=== PATIENT | male | born 1975 | race Two or more races ===

== ENCOUNTER 2020-09-14 15:25 | Outpatient (REF) | payer MEDICAID, SELFPAY ==
--- NOTE | 2020-09-14 15:37 | XR_ITS ---
EXAMINATION: XR HIP, RIGHT CLINICAL INFORMATION: Right hip pain. COMPARISON: None TECHNIQUE: Two views of the right hip. FINDINGS: There is loss of right hip joint space with lateral femoral head and acetabular spurring.. No bony erosive changes seen. No visible acute fracture or dislocation. The soft tissues are unremarkable. XR/XR hip RT min 2V IMPRESSION: Mild spurring along the right lateral femoral head and lateral acetabular spurring. An MRI may be helpful for further evaluation to exclude any labral impingement or tear.
== END 2020-09-14 15:26 | disposition home or self-care (01) ==
LOC: HO.XRAY 15:25
DX: M25.551 Pain in right hip (principal)
CPT/HCPCS: 73502

== ENCOUNTER 2020-10-23 17:32 | Outpatient (REF) | payer MEDICAID, SELFPAY | END 2020-10-23 17:33 | disposition home or self-care (01) | LOC: HO.LAB 17:32 | PROVIDERS: PCP Nurse Practitioner Primary Care; Visit Provider Internal Medicine | DX: Z20.828 Contact with and (suspected) exposure to other viral communicable diseases (principal) | CPT/HCPCS: C9803; U0003 ==

== ENCOUNTER → 2020-11-19 13:28 | Outpatient (BNVA) | payer MEDICAID, SELFPAY | PROVIDERS: PCP Nurse Practitioner Primary Care; Visit Provider Orthopaedic Surgery | DX: M25.552 Pain in left hip (principal); M54.16 Radiculopathy, lumbar region; M16.12 Unilateral primary osteoarthritis, left hip | CPT/HCPCS: 99202 ==

== ENCOUNTER 2020-12-06 15:34 | Emergency (ER) | payer MEDICAID, SELFPAY ==
--- NOTE | 2020-12-06 15:50 | ED.ABDPAIN ---
HPI - Abdominal Pain General Chief Complaint: General Medical <Francisco Rushing NP - Last Filed: 12/06/20 17:53> Stated Complaint: abd pain <Francisco Rushing NP - Last Filed: 12/06/20 17:53> Time Seen by Provider: 12/06/20 15:50 <Francisco Rushing NP - Last Filed: 12/06/20 17:53> Source: patient <Francisco Rushing NP - Last Filed: 12/06/20 17:53> Limitations: no limitations <Francisco Rushing NP - Last Filed: 12/06/20 17:53> History of Present Illness HPI narrative: States history of lower back pain secondary to osteoarthritis is referred to Orthopedics/physical therapy by his GP however today having right-sided flank pain going to right groin which is slightly different and down the leg. There is no fever or chills. No injury. No dysuria. Positive nausea secondary to the pain. <Francisco Rushing NP - Last Filed: 12/06/20 17:53> MD elicited complaint: abdominal pain and flank pain <Francisco Rushing NP - Last Filed: 12/06/20 17:53> Onset (ago): day(s) <Francisco Rushing NP - Last Filed: 12/06/20 17:53> Location: R flank <Francisco Rushing NP - Last Filed: 12/06/20 17:53> Severity: moderate <Francisco Rushing NP - Last Filed: 12/06/20 17:53> Quality: aching <Francisco Rushing NP - Last Filed: 12/06/20 17:53> Associated symptoms: denies other symptoms <Francisco Rushing NP - Last Filed: 12/06/20 17:53> Related Data Home Medications: Home Medications Medication Instructions Recorded Confirmed naproxen 500 mg tablet 500 mg PO BID 11/19/20 oxycodone 5 mg capsule 5 mg PO BID PRN 11/19/20 Previous Rx's Medication Instructions Recorded cyclobenzaprine 10 mg PO TID PRN #20 tab 12/06/20 lidocaine 1 patch TOPICAL Q24H PRN #10 ea 12/06/20 <Francisco Rushing NP - Last Filed: 12/06/20 17:53> Allergies/Adverse Reactions: Allergies Allergy/AdvReac Type Severity Reaction Status Date / Time No Known Allergies Allergy Verified 11/19/20 13:36 [No Known Allergies*] <Francisco Rushing NP - Last Filed: 12/06/20 17:53> Review of Systems Review of Systems Constitutional: No Weight loss, No Fever, No Chills, No Night Sweats, No Fatigue, No Malaise ENT/Mouth: No Hearing loss, No Ear Pain, No Nasal Congestion, No Sinus Pain, No Hoarseness, No sore throat, No Rhinorrhea, No Swallowing Difficulty Eyes: No Eye Pain, No Swelling, No Redness, No Foreign Body, No Discharge, No Vision Changes Cardiovascular: No Chest Pain, No SOB, No Dyspnea on Exertion, No Orthopnea, No Edema, No Palpitations Respiratory: No Cough, No Sputum, No Wheezing, No Smoke Exposure, No Dyspnea Gastrointestinal: No Vomiting, No Diarrhea, No Constipation, No Hematochezia, No Melena Genitourinary: no irregular bleeding, No Dysuria, No Urinary Frequency, No Hematuria, No Urinary Incontinence, No Urgency, No Flank Pain, No Urinary Flow Changes, No Hesitancy Musculoskeletal: No joint pain, No Myalgias, No Joint Swelling, , positive right-sided lower back pain radiating down the legs Skin: No Skin Lesions, No rash Neuro: No Weakness, No Numbness, No Paresthesias, No Loss of Consciousness, No Dizziness, No Headache Psych: No Social Issues Heme/Lymph: No Bruising, No Bleeding,No Lymphadenopathy Endocrine: No Polyuria, No Polydipsia, No Temperature Intolerance <Francisco Rushing NP - Last Filed: 12/06/20 17:53> Yes all other systems are reviewed and are negative <Francisco Rushing NP - Last Filed: 12/06/20 17:53> Physical Exam Vital Signs: Vital Signs: Last Vital Signs Temp 98.0 F 12/06/20 15:51 Pulse 103 H 12/06/20 15:51 Resp 20 12/06/20 17:01 BP 138/92 H 12/06/20 17:01 Pulse Ox 95 12/06/20 15:51 Body Mass Index 31.8 Reviewed <Francisco Rushing NP - Last Filed: 12/06/20 17:53> Vital Signs: Last Vital Signs Temp 98.0 F 12/06/20 15:51 Pulse 103 H 12/06/20 15:51 Resp 20 12/06/20 17:01 BP 138/92 H 12/06/20 17:01 Pulse Ox 95 12/06/20 15:51 Body Mass Index 31.8 <Monty Cintron MD - Last Filed: 12/12/20 10:50> Const: Other: Appears uncomfortable grimacing and states is sharp stabbing pain on the right side of the flank and radiating to the right abdomen <Franciscosamantha Rushing NP - Last Filed: 12/06/20 17:53> General: cooperative and healthy appearing; No intoxicated appearing <[facility] JEAN PAUL Rushing - Last Filed: 12/06/20 17:53> Nutritional Appearance: average body habitus <[facility] JEAN PAUL Rushing - Last Filed: 12/06/20 17:53> Orientation/consciousness: patient oriented x3 <[facility] JEAN PAUL Rushing - Last Filed: 12/06/20 17:53> HENMT: Head: Yes normal to inspection <[facility] JEAN PAUL Rushing - Last Filed: 12/06/20 17:53> Ears: hearing grossly normal bilaterally <[facility] JEAN PAUL Rushing - Last Filed: 12/06/20 17:53> Eyes: General: appearance normal, both eyes and all related structures <Franciscosamantha Rushing NP - Last Filed: 12/06/20 17:53> Visual Summers: normal visual summers by confrontation <[facility] JEAN PAUL Rushing - Last Filed: 12/06/20 17:53> Neck: Neck: Yes normal visual inspection, No positive Brudzinski's sign, No positive Kernig's sign and No tender <[facility] JEAN PAUL Rushing - Last Filed: 12/06/20 17:53> Thyroid: Thyroid normal <[facility] JEAN PAUL Rushing - Last Filed: 12/06/20 17:53> Chest: Chest palpation & inspection: normal inspection of the chest <[facility] JEAN PAUL Rushing - Last Filed: 12/06/20 17:53> Resp: Effort & Inspection: normal respiratory effort <[facility] JEAN PAUL Rushing - Last Filed: 12/06/20 17:53> Auscultation: clear to auscultation bilaterally <Francisco RushingJEAN PAUL - Last Filed: 12/06/20 17:53> Cardio: Jugular venous distension: no JVD <Francisco Rushing JEAN PAUL - Last Filed: 12/06/20 17:53> Rate: regular rate <Francisco RushingJEAN PAUL - Last Filed: 12/06/20 17:53> Rhythm: regular rhythm <Francisco RushingJEAN PAUL - Last Filed: 12/06/20 17:53> Heart sounds: S1 normal heart sound present and S2 normal heart sound present <Francisco RushingJEAN PAUL - Last Filed: 12/06/20 17:53> GI: Inspection: Yes normal to inspection <Francisco RushingJEAN PAUL - Last Filed: 12/06/20 17:53> Palpation (GI): Soft to palpation <Francisco RushingJEAN PAUL - Last Filed: 12/06/20 17:53> Percussion: Yes normal to percussion <Francisco RushingJEAN PAUL - Last Filed: 12/06/20 17:53> Auscultation: normal bowel sounds <Francisco RushingJEAN PAUL - Last Filed: 12/06/20 17:53> : General: Yes no CVA tenderness <Francisco RushingJEAN PAUL - Last Filed: 12/06/20 17:53> Back/Spine/Pelvis: Back: no CVA tenderness <Francisco RushingJEAN PAUL - Last Filed: 12/06/20 17:53> Skin: General skin exam: no rashes or lesions noted <Francisco RushingJEAN PAUL - Last Filed: 12/06/20 17:53> Neuro: General: patient oriented x3 <Francisco RushingJEAN PAUL - Last Filed: 12/06/20 17:53> Extrem: Other: Negative Homans bilaterally. Pulses within normal limits. Reflexes within normal limits. positive leg lift at 65 degrees on the right side. <Francisco RushingJEAN PAUL - Last Filed: 12/06/20 17:53> General: Yes normal to inspection <Francisco RushingJEAN PAUL - Last Filed: 12/06/20 17:53> Course Course Course Narrative: I have reviewed the chart <Monty Cintron MD - Last Filed: 12/12/20 10:50> MDM - Abdominal Pain Lab Data Result diagrams: : 12/06/20 16:07 12/06/20 16:07 <Francisco RushingJEAN PAUL - Last Filed: 12/06/20 17:53> Labs: Lab Results 12/06/20 12/06/20 12/06/20 Range/Units 16:07 16:07 16:07 WBC 16.6 H (4.8-10.8) X10*3/uL RBC 4.96 (4.60-5.80) X10*6/uL Hgb 14.4 (14.0-18.0) g/dl Hct 43.0 (42-52) % MCV 86.7 (80-98) fL MCH 29.0 (27.0-33.0) pg MCHC 33.5 (31.0-36.0) g/dl RDW 14.5 (11.0-16.0) % Plt Count 408 H (160-400) X10*3/uL MPV 9.8 (9.4-12.4) fL Immature Gran % (Auto) 1.0 H (0.0-0.4) % Neut % (Auto) 69.2 (45-73) % Lymph % (Auto) 22.0 (20-40) % [place] % (Auto) 6.7 (2-11) % Eos % (Auto) 0.8 (0-4) % Baso % (Auto) 0.3 (0-2) % Lymph # (Auto) 3.7 (1.2-4.9) X10*3/uL [place] # (Auto) 1.1 (0.1-1.2) X10*3/uL Eos # (Auto) 0.1 (0.0-0.4) X10*3/uL Baso # (Auto) 0.1 (0.0-0.2) X10*3/uL Abs Immat Gran (auto) 0.17 H (0.00-0.03) X10*3/uL Absolute Neuts (auto) 11.5 H (2.0-8.3) X10*3/uL Absolute Nucleated RBC 0.000 (0.0-0.012) X10*3/uL Nucleated RBC % (auto) 0.0 (0.0-0.2) /100WBC Hold Blue Top SEE NOTE Sodium 138 (135-145) mmol/L Potassium 4.3 (3.3-5.1) mmol/l Chloride 105 (96-108) mmol/L Carbon Dioxide 23 (22-29) mmol/L Anion Gap 14 (12-20) BUN 18 H (9-16) mg/dL Creatinine 0.86 (0.5-1.4) mg/dL Estim Creat Clear Calc 139.7 Estimated GFR > 60 Random Glucose 103 (60-115) mg/dL Calcium 9.5 (8.4-10.2) mg/dL Total Bilirubin 0.3 (0.0-1.0) mg/dL AST 17 (5-37) U/L ALT 41 H (0-40) U/L Alkaline Phosphatase 58 (39-117) U/L Total Protein 7.4 (6.5-8.0) g/dL Albumin 4.5 (3.5-5.0) g/dL Urine Color Urine Appearance Urine pH (5.0-8.0) Ur Specific [place] (1.005-1.025) Urine Protein (NEG-TRACE) MG/DL Urine Glucose (UA) (NEG) MG/DL Urine Ketones (NEG) MG/DL Urine Blood (NEG) Urine Nitrite (NEG) Ur Leukocyte Esterase (NEG) Urine RBC (0) /HPF Urine WBC (0-4) /HPF Ur Squamous Epith Cells /LPF Urine Bacteria /LPF 12/06/20 Range/Units 16:07 WBC (4.8-10.8) X10*3/uL RBC (4.60-5.80) X10*6/uL Hgb (14.0-18.0) g/dl Hct (42-52) % MCV (80-98) fL MCH (27.0-33.0) pg MCHC (31.0-36.0) g/dl RDW (11.0-16.0) % Plt Count (160-400) X10*3/uL MPV (9.4-12.4) fL Immature Gran % (Auto) (0.0-0.4) % Neut % (Auto) (45-73) % Lymph % (Auto) (20-40) % [place] % (Auto) (2-11) % Eos % (Auto) (0-4) % Baso % (Auto) (0-2) % Lymph # (Auto) (1.2-4.9) X10*3/uL [place] # (Auto) (0.1-1.2) X10*3/uL Eos # (Auto) (0.0-0.4) X10*3/uL Baso # (Auto) (0.0-0.2) X10*3/uL Abs Immat Gran (auto) (0.00-0.03) X10*3/uL Absolute Neuts (auto) (2.0-8.3) X10*3/uL Absolute Nucleated RBC (0.0-0.012) X10*3/uL Nucleated RBC % (auto) (0.0-0.2) /100WBC Hold Blue Top Sodium (135-145) mmol/L Potassium (3.3-5.1) mmol/l Chloride (96-108) mmol/L Carbon Dioxide (22-29) mmol/L Anion Gap (12-20) BUN (9-16) mg/dL Creatinine (0.5-1.4) mg/dL Estim Creat Clear Calc Estimated GFR Random Glucose (60-115) mg/dL Calcium (8.4-10.2) mg/dL Total Bilirubin (0.0-1.0) mg/dL AST (5-37) U/L ALT (0-40) U/L Alkaline Phosphatase (39-117) U/L Total Protein (6.5-8.0) g/dL Albumin (3.5-5.0) g/dL Urine Color YELLOW Urine Appearance CLEAR Urine pH 5.5 (5.0-8.0) Ur Specific [place] >= 1.030 H (1.005-1.025) Urine Protein NEG (NEG-TRACE) MG/DL Urine Glucose (UA) NEG (NEG) MG/DL Urine Ketones NEG (NEG) MG/DL Urine Blood TRACE (NEG) Urine Nitrite NEG (NEG) Ur Leukocyte Esterase NEG (NEG) Urine RBC 0-2 (0) /HPF Urine WBC 0 (0-4) /HPF Ur Squamous Epith Cells TRACE /LPF Urine Bacteria NONE /LPF <Francisco Rushing NP - Last Filed: 12/06/20 17:53> Lab Results 12/06/20 12/06/2021 Range/Units 16:07 16:07 16:07 WBC 16.6 H (4.8-10.8) X10*3/uL RBC 4.96 (4.60-5.80) X10*6/uL Hgb 14.4 (14.0-18.0) g/dl Hct 43.0 (42-52) % MCV 86.7 (80-98) fL MCH 29.0 (27.0-33.0) pg MCHC 33.5 (31.0-36.0) g/dl RDW 14.5 (11.0-16.0) % Plt Count 408 H (160-400) X10*3/uL MPV 9.8 (9.4-12.4) fL Immature Gran % (Auto) 1.0 H (0.0-0.4) % Neut % (Auto) 69.2 (45-73) % Lymph % (Auto) 22.0 (20-40) % [place] % (Auto) 6.7 (2-11) % Eos % (Auto) 0.8 (0-4) % Baso % (Auto) 0.3 (0-2) % Lymph # (Auto) 3.7 (1.2-4.9) X10*3/uL [place] # (Auto) 1.1 (0.1-1.2) X10*3/uL Eos # (Auto) 0.1 (0.0-0.4) X10*3/uL Baso # (Auto) 0.1 (0.0-0.2) X10*3/uL Abs Immat Gran (auto) 0.17 H (0.00-0.03) X10*3/uL Absolute Neuts (auto) 11.5 H (2.0-8.3) X10*3/uL Absolute Nucleated RBC 0.000 (0.0-0.012) X10*3/uL Nucleated RBC % (auto) 0.0 (0.0-0.2) /100WBC Hold Blue Top SEE NOTE Sodium 138 (135-145) mmol/L Potassium 4.3 (3.3-5.1) mmol/l Chloride 105 (96-108) mmol/L Carbon Dioxide 23 (22-29) mmol/L Anion Gap 14 (12-20) BUN 18 H (9-16) mg/dL Creatinine 0.86 (0.5-1.4) mg/dL Estim Creat Clear Calc 139.7 Estimated GFR > 60 Random Glucose 103 (60-115) mg/dL Calcium 9.5 (8.4-10.2) mg/dL Total Bilirubin 0.3 (0.0-1.0) mg/dL AST 17 (5-37) U/L ALT 41 H (0-40) U/L Alkaline Phosphatase 58 (39-117) U/L Total Protein 7.4 (6.5-8.0) g/dL Albumin 4.5 (3.5-5.0) g/dL Urine Color Urine Appearance Urine pH (5.0-8.0) Ur Specific [place] (1.005-1.025) Urine Protein (NEG-TRACE) MG/DL Urine Glucose (UA) (NEG) MG/DL Urine Ketones (NEG) MG/DL Urine Blood (NEG) Urine Nitrite (NEG) Ur Leukocyte Esterase (NEG) Urine RBC (0) /HPF Urine WBC (0-4) /HPF Ur Squamous Epith Cells /LPF Urine Bacteria /LPF 12/06/20 Range/Units 16:07 WBC (4.8-10.8) X10*3/uL RBC (4.60-5.80) X10*6/uL Hgb (14.0-18.0) g/dl Hct (42-52) % MCV (80-98) fL MCH (27.0-33.0) pg MCHC (31.0-36.0) g/dl RDW (11.0-16.0) % Plt Count (160-400) X10*3/uL MPV (9.4-12.4) fL Immature Gran % (Auto) (0.0-0.4) % Neut % (Auto) (45-73) % Lymph % (Auto) (20-40) % [place] % (Auto) (2-11) % Eos % (Auto) (0-4) % Baso % (Auto) (0-2) % Lymph # (Auto) (1.2-4.9) X10*3/uL [place] # (Auto) (0.1-1.2) X10*3/uL Eos # (Auto) (0.0-0.4) X10*3/uL Baso # (Auto) (0.0-0.2) X10*3/uL Abs Immat Gran (auto) (0.00-0.03) X10*3/uL Absolute Neuts (auto) (2.0-8.3) X10*3/uL Absolute Nucleated RBC (0.0-0.012) X10*3/uL Nucleated RBC % (auto) (0.0-0.2) /100WBC Hold Blue Top Sodium (135-145) mmol/L Potassium (3.3-5.1) mmol/l Chloride (96-108) mmol/L Carbon Dioxide (22-29) mmol/L Anion Gap (12-20) BUN (9-16) mg/dL Creatinine (0.5-1.4) mg/dL Estim Creat Clear Calc Estimated GFR Random Glucose (60-115) mg/dL Calcium (8.4-10.2) mg/dL Total Bilirubin (0.0-1.0) mg/dL AST (5-37) U/L ALT (0-40) U/L Alkaline Phosphatase (39-117) U/L Total Protein (6.5-8.0) g/dL Albumin (3.5-5.0) g/dL Urine Color YELLOW Urine Appearance CLEAR Urine pH 5.5 (5.0-8.0) Ur Specific [place] >= 1.030 H (1.005-1.025) Urine Protein NEG (NEG-TRACE) MG/DL Urine Glucose (UA) NEG (NEG) MG/DL Urine Ketones NEG (NEG) MG/DL Urine Blood TRACE (NEG) Urine Nitrite NEG (NEG) Ur Leukocyte Esterase NEG (NEG) Urine RBC 0-2 (0) /HPF Urine WBC 0 (0-4) /HPF Ur Squamous Epith Cells TRACE /LPF Urine Bacteria NONE /LPF <Monty Cintron MD - Last Filed: 12/12/20 10:50> Imaging Data Abdominal/pelvis CT: Radiologist's impression: [address] [id number] Scan ReportSigned Patient: Jamshid Tejada AMR#: [id number]: [id number]:[id number]/Sex: 45 / MADM Date: 12/06/20Loc: [email or web address] Dr: Ordering Physician: Francisco Rushing NP Date of Service: 12/06/20 Procedure(s): CT abdomen pelvis wo con Accession Number(s): [id number] cc: Francisco Rushing [employer] CANDLES~ EXAMINATION: CT ABDOMEN AND PELVIS WITHOUT CONTRAST CLINICAL INFORMATION: Right-sided abdomen and right-sided flank pain. COMPARISON: CT abdomen and pelvis noncontrast 07/26/2013 TECHNIQUE: Multidetector volumetric imaging was performed from the superior aspect of the liver through the pubic symphysis. Sagittal and coronal reformatted images were obtained on the technologist's workstation. This CT examination was performed using dose optimization techniques as appropriate, variously including the following: *Automated exposure control *Adjustment of mA and/or kV according to patient size (this includes techniques or standardized protocols for targeted exams where dose is matched to indication/reason for exam; i.e. extremities or head) *Use of iterative reconstruction technique DLP: 798 mGy-cm FINDINGS: LUNG BASES: The visualized lung bases are unremarkable. LIVER, GALLBLADDER, AND BILIARY TREE: The liver is normal in size, shape, and attenuation. No focal hepatic lesion or biliary ductal dilatation is present. The gallbladder is unremarkable with no evidence of radiopaque gallstones, gallbladder wall thickening, or obvious pericholecystic inflammatory changes. PANCREAS: Unremarkable. SPLEEN: Unremarkable. ADRENAL GLANDS: Left adrenal normal. There is a small nodule central right adrenal measuring only 1.2 cm and 11HU attenuation likely adenoma. Prior measurement approximately 0.9 cm. KIDNEYS AND URETERS: The kidneys are normal in size, shape, and attenuation. No hydronephrosis, hydroureter, or calculi seen. No perinephric stranding. BLADDER: Unremarkable. GASTROINTESTINAL TRACT: No bowel obstruction or inflammatory changes in the bowel or mesentery. No pneumatosis or free air. The appendix is normal. There is no ascites or fluid collection. ABDOMINAL WALL: Borderline fat-containing umbilical hernia under 2 cm. Borderline bilateral fat-containing inguinal hernias. LYMPH NODES: No lymphadenopathy. VASCULAR: Incidental retroaortic left renal vein. PELVIC VISCERA: Unremarkable. OSSEOUS STRUCTURES: No acute bony abnormality. Mild degenerative changes lower thoracic and lumbar spine. CT/CT abdomen pelvis wo con IMPRESSION: 1. No inflammatory changes in abdomen or pelvis. Normal appendix. 2. No visible gallstones or biliary ductal dilatation. 3. No hydronephrosis or perinephric stranding. 4. Small right adrenal nodule likely adenoma only 12 mm. Dictated By:MONTY LAUREN MDSigned By:<Electronically signed by MONTY LAUREN MD in [place]>12/06/20 1627 DD/ 1551TD/TT: [employer] Maker: EVE <Francisco Rushing NP - Last Filed: 12/06/20 17:53> Discharge Plan Discharge Clinical Impression: Lumbar spine strain, Sciatica <Francisco Rushing NP - Last Filed: 12/06/20 17:53> Patient Disposition: Home, Self-Care <Francisco Rushing NP - Last Filed: 12/06/20 17:53> Instructions: Sciatica (ED), Lower Back Exercises (ED) <Francisco Rushing NP - Last Filed: 12/06/20 17:53> Additional Instructions: The CT scan of the abdomen pelvis did not show any evidence of kidney stones, no evidence of acute appendicitis. The pain is likely from your musculoskeletal system and involvement of your sciatic nerve. Continue with her prednisone as prescribed by her primary care doctor I will add on a muscle relaxant (Flexeril) please do not drink alcohol or drive while taking his medications Gentle stretching Take medication prescribed Follow-up with her outpatient providers as discussed Return if any concerns or worsening symptoms Thank you <Francisco Rushing NP - Last Filed: 12/06/20 17:53> Prescriptions: New cyclobenzaprine 10 mg tablet 10 mg PO TID PRN (Reason: muscle spasm) Qty: 20 RF: 0 lidocaine 4 % adhesive patch,medicated 1 patch topical Q24H PRN (Reason: pain) Qty: 10 RF: 0 <Francisco Rushing NP - Last Filed: 12/06/20 17:53> Referrals: Anna Marie Cameron NP [Primary Care Provider] - 1 week <Francisco Rushing NP - Last Filed: 12/06/20 17:53> Interventions: ED Discharge Assessment Last Done: 12/06/20 18:30 <Francisco Rushing, [employer] - Last Filed: 12/06/20 17:53> Discharge Date/Time: 12/06/20 18:31 <Francisco Rushing NP - Last Filed: 12/06/20 17:53> [facility] Past Medical History Medical History: Medical History (Updated 12/07/20 @ 00:00 by Emil Musa) Left hip pain Primary osteoarthritis of right hip Right lumbar radiculopathy <Francisco Rushing NP - Last Filed: 12/06/20 17:53> Surgical History: Surgical History (Updated 11/19/20 @ 13:39 by DAKOTA Avina) History of repair of right rotator cuff <Francisco Rushing NP - Last Filed: 12/06/20 17:53> Family History Family History: Family History (Updated 11/19/20 @ 13:39 by DAKOTA Avina) Mother No problems noted. 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
[2020-12-06 15:51] VITALS: BP 128/92; PULSE 103; RESP 20; TEMP 36.7; O2SAT 95; BMI 31.8
[2020-12-06] MEDS: 0.9 % Sodium Chloride 1,000 ML 999 ML IV (16:10)
[2020-12-06 16:12] LABS: MANUAL DIFF FLAG NO
[2020-12-06] MEDS: ondansetron HCL 4 MG/2 ML VIAL IVPUSH (16:12)
[2020-12-06] MEDS: Ketorolac Tromethamine 30 MG/ML VIAL IVPUSH (16:12)
[2020-12-06 16:16] LABS: Basophils Absolute Auto 0.1 X10*3/uL (0.0-0.2); Basophils Percent Auto 0.3 % (0-2); Eosinophils Absolute Auto 0.1 X10*3/uL (0.0-0.4); Eosinophils Percent Auto 0.8 % (0-4); Hemoglobin 14.4 g/dl (14.0-18.0); Imm Gran Abs Auto 0.17 X10*3/uL (0.00-0.03); Lymphocytes Absolute Auto 3.7 X10*3/uL (1.2-4.9); Mean Corpuscular HGB Conc 33.5 g/dl (31.0-36.0); Mean Corpuscular Volume 86.7 fL (80-98); Mean Platelet Volume 9.8 fL (9.4-12.4); Monocytes Absolute Auto 1.1 X10*3/uL (0.1-1.2); Monocytes Percent Auto 6.7 % (2-11); Neutrophils Absolute Auto 11.5 X10*3/uL (2.0-8.3); Neutrophils Percent Auto 69.2 % (45-73); Platelet Count 408 X10*3/uL (160-400); Red Blood Count 4.96 X10*6/uL (4.60-5.80); Red Cell Distribution Width 14.5 % (11.0-16.0); White Blood Count 16.6 X10*3/uL (4.8-10.8)
[2020-12-06 16:19] LABS: Glucose Urine UA NEG (NEG); Leukocyte Esterase Urine NEG (NEG); Nitrite Urine NEG (NEG); PH 5.5 (5.0-8.0); Specific Gravity - Urine >= 1.030 (1.005-1.025); Urine Blood TRACE (NEG); Urine Ketones NEG (NEG); Urine Protein NEG (NEG-TRACE)
[2020-12-06 16:20] LABS: Appearance Urine CLEAR; Color Urine YELLOW
[2020-12-06 16:37] LABS: Alanine Aminotransferase 41 U/L (0-40); Albumin Level 4.5 g/dL (3.5-5.0); Alkaline Phosphatase 58 U/L (39-117); Anion Gap 14 (12-20); Aspartate Amino Transferase 17 U/L (5-37); Bilirubin Total 0.3 mg/dL (0.0-1.0); Blood Urea Nitrogen 18 mg/dL (9-16); Calcium 9.5 mg/dL (8.4-10.2); Carbon Dioxide 23 mmol/L (22-29); Chloride 105 mmol/L (96-108); Creatinine Clr Calc Pharmacy 139.7; Estimated Glomerular Filt Rate > 60; Glucose Random 103 mg/dL (60-115); Potassium 4.3 mmol/l (3.3-5.1); Sodium 138 mmol/L (135-145); Total Protein 7.4 g/dL (6.5-8.0)
[2020-12-06 16:58] LABS: RBC Urine 0-2 /HPF (0); WBC Urine 0 /HPF (0-4)
[2020-12-06 16:59] LABS: Squamous Epithelial Cell Urine TRACE /LPF
[2020-12-06 17:01] VITALS: BP 138/92; RESP 20
[2020-12-06] MEDS: Morphine Sulfate 4 MG/ML CARTRIDGE IVPUSH (17:01)
== END 2020-12-06 18:31 | disposition home or self-care (01) ==
PROVIDERS: Nurse Practitioner Primary Care; Emergency Provider Emergency Medicine; PCP Nurse Practitioner Primary Care
DX: S39.012A Strain of muscle, fascia and tendon of lower back, initial encounter (principal); M54.41 Lumbago with sciatica, right side; R11.0 Nausea; M79.605 Pain in left leg; M79.604 Pain in right leg; F17.210 Nicotine dependence, cigarettes, uncomplicated; X58.XXXA Exposure to other specified factors, initial encounter; Y93.9 Activity, unspecified; Y92.9 Unspecified place or not applicable; Y99.9 Unspecified external cause status; Z71.6 Tobacco abuse counseling; Z79.899 Other long term (current) drug therapy
CPT/HCPCS: 36415; 74176; 80053; 81001; 85025; 96361; 96374; 96375; 99283; 99284; J1885; J2270; J2405

== ENCOUNTER → 2020-12-13 16:19 | Outpatient (BNVA) | payer MEDICAID, SELFPAY | PROVIDERS: PCP Nurse Practitioner Primary Care; Visit Provider Anesthesiology ==

== ENCOUNTER 2020-12-25 07:01 | Outpatient (REF) | payer MEDICAID, SELFPAY ==
--- NOTE | ~2020-12-25 | FL_ITS ---
EXAMINATION: XR FLUOROSCOPY WITH IMAGES CLINICAL INFORMATION: Degenerative disc disease lumbar region. COMPARISON: None. TECHNIQUE: Fluoroscopy performed by Maria Elena Márquez NP. Fluoroscopy time: 0.5 minutes DAP: 2.8 Gycm2 Images: 2 FINDINGS: Images demonstrate needle placement adjacent to the lateral right L3 and L4 vertebral bodies and contrast injection. FL/FL guidance in treatment room IMPRESSION: Fluoroscopy guidance for spinal injection.
== END 2020-12-25 07:02 | disposition home or self-care (01) ==
LOC: HO.RADIR 07:01
PROVIDERS: Visit Provider Anesthesiology
DX: M51.36 Other intervertebral disc degeneration, lumbar region (principal); M54.16 Radiculopathy, lumbar region; F17.210 Nicotine dependence, cigarettes, uncomplicated
CPT/HCPCS: 64483; 64484; J3300; Q9967

== ENCOUNTER → 2021-01-01 11:21 | Outpatient (BNVA) | payer MEDICAID, SELFPAY | PROVIDERS: PCP Nurse Practitioner Primary Care; Visit Provider Physician Assistant ==

== ENCOUNTER 2021-01-02 08:57 | Outpatient (REF) | payer MEDICAID, SELFPAY ==
--- NOTE | ~2021-01-02 | MR_ITS ---
EXAMINATION: MR LUMBAR SPINE WITHOUT CONTRAST CLINICAL INFORMATION: Low back pain and sciatica. COMPARISON: Lumbar spine MRI 06/19/2020. TECHNIQUE: MRI of the lumbar spine was obtained using routine sequences without contrast. FINDINGS: There is slight grade 1 retrolisthesis of L4 on L5. Alignment is otherwise normal. Vertebral heights are preserved. No acute bone marrow signal changes. There is disc desiccation at multiple levels without substantial loss of intervertebral disc height. Overall there appears to be congenital canal narrowing. The tip of the conus medullaris is located at L1-L2. No mass effect on the conus. Visualized distal cord signal intensity is normal. At L1-L2 there is a slightly bulging disc. Mild canal stenosis. No mass effect on the traversing or foraminal nerve roots. At L2-L3 there is a slightly bulging disc. Mild canal stenosis. No mass effect on the traversing or foraminal nerve roots. At L3-L4 there is an asymmetrically bulging disc to the left. Bilateral facet degenerative change. Mild canal stenosis. Mild mass effect on the extraforaminal segment of the left L3 nerve root. At L4-L5 there is a broad central extrusion with 0.9 similar caudal subligamentous extension of extruded disc material causing severe canal stenosis. No foraminal nerve root compression. At L5-S1 there is a slightly bulging disc. No canal stenosis. No mass effect on the traversing or foraminal nerve roots. Limited visualization the retroperitoneal anatomy reveals no abnormal finding. Psoas and paraspinal muscle groups are symmetric. MR/MR lumbar spine wo con IMPRESSION: There is multilevel degenerative spondylosis of the lumbar spine which is superimposed upon underlying congenital canal narrowing. There is grade 1 retrolisthesis of L4 on L5. At this level there is also a broad central extrusion causing severe canal stenosis. Mild canal stenosis at L1-L2, L2-L3, and L3-L4. An asymmetrically bulging disc at L3-L4 causes mild mass effect on the extraforaminal segment of left L3 nerve root.
== END 2021-01-02 08:58 | disposition home or self-care (01) ==
LOC: HO.MRI 08:57
PROVIDERS: Visit Provider Nurse Practitioner Primary Care
DX: M54.16 Radiculopathy, lumbar region (principal); M54.41 Lumbago with sciatica, right side; M54.42 Lumbago with sciatica, left side
CPT/HCPCS: 72148

== ENCOUNTER → 2021-01-24 09:45 | Outpatient (BNVA) | payer MEDICAID, SELFPAY | PROVIDERS: PCP Nurse Practitioner Primary Care; Visit Provider Anesthesiology ==

== ENCOUNTER 2021-02-26 06:24 | Outpatient (REF) | payer MEDICAID, SELFPAY ==
--- NOTE | ~2021-02-26 | FL_ITS ---
EXAMINATION: XR FLUOROSCOPY WITH IMAGES CLINICAL INFORMATION: Degenerative disc disease lumbar region COMPARISON: Previous exam December 2020 TECHNIQUE: Fluoroscopy performed by Maria Elena Márquez NP. Fluoroscopy time: 1 minutes DAP: 6.7 Gycm2 Images: 8 FINDINGS: Images demonstrate needle placement and contrast injection adjacent to the bilateral lateral L2-L5 vertebral bodies. FL/FL guidance in treatment room IMPRESSION: Fluoroscopic guidance for spinal injection.
== END 2021-02-26 06:25 | disposition home or self-care (01) ==
LOC: HO.RADIR 06:24
PROVIDERS: Visit Provider Anesthesiology
DX: M51.36 Other intervertebral disc degeneration, lumbar region (principal); M54.16 Radiculopathy, lumbar region
CPT/HCPCS: 64493; 64494; 64495; Q9967

== ENCOUNTER 2021-02-26 09:21 | Outpatient (REF) | payer MEDICAID, SELFPAY ==
[2021-02-26 10:05] LABS: MANUAL DIFF FLAG NO
[2021-02-26 10:10] LABS: Basophils Absolute Auto 0.1 X10*3/uL (0.0-0.2); Basophils Percent Auto 0.5 % (0-2); Eosinophils Absolute Auto 0.1 X10*3/uL (0.0-0.4); Eosinophils Percent Auto 0.7 % (0-4); Hemoglobin 13.2 g/dl (14.0-18.0); Imm Gran Abs Auto 0.07 X10*3/uL (0.00-0.03); Imm Gran Pct Auto 0.6 % (0.0-0.4); Lymphocytes Absolute Auto 2.5 X10*3/uL (1.2-4.9); Lymphocytes Percent Auto 19.6 % (20-40); Mean Corpuscular HGB Conc 31.4 g/dl (31.0-36.0); Mean Platelet Volume 10.1 fL (9.4-12.4); Monocytes Absolute Auto 0.8 X10*3/uL (0.1-1.2); Monocytes Percent Auto 6.3 % (2-11); Neutrophils Absolute Auto 9.1 X10*3/uL (2.0-8.3); Neutrophils Percent Auto 72.3 % (45-73); Platelet Count 388 X10*3/uL (160-400); Red Blood Count 4.72 X10*6/uL (4.60-5.80); Red Cell Distribution Width 15.1 % (11.0-16.0); White Blood Count 12.6 X10*3/uL (4.8-10.8)
== END 2021-02-26 09:22 | disposition home or self-care (01) ==
LOC: HO.LAB 09:21
PROVIDERS: PCP Nurse Practitioner Primary Care; Visit Provider Physician Assistant
DX: R74.01 Elevation of levels of liver transaminase levels (principal)
CPT/HCPCS: 36415; 85025

== ENCOUNTER → 2021-03-06 12:22 | Outpatient (BNVA) | payer MEDICAID, SELFPAY | PROVIDERS: PCP Nurse Practitioner Primary Care; Visit Provider Anesthesiology ==

== ENCOUNTER → 2021-03-21 09:56 | Outpatient (BNVA) | payer MEDICAID, SELFPAY | PROVIDERS: PCP Nurse Practitioner Primary Care; Visit Provider Physician Assistant ==

== ENCOUNTER 2021-04-23 07:31 | Outpatient (REF) | payer MEDICAID, SELFPAY | END 2021-04-23 07:32 | disposition home or self-care (01) | LOC: HO.RADIR 07:31 | PROVIDERS: Visit Provider Anesthesiology | DX: Z13.89 Encounter for screening for other disorder (principal) ==

== ENCOUNTER 2021-07-16 06:21 | Outpatient (REF) | payer MEDICAID, SELFPAY ==
--- NOTE | ~2021-07-16 | FL_ITS ---
EXAMINATION: XR FLUOROSCOPY WITH IMAGES CLINICAL INFORMATION: Spondylosis without myelopathy or radiculopathy. COMPARISON: February 26, 2021 and December 25, 2020 TECHNIQUE: Fluoroscopy performed by Dr. Rodger Padilla. Fluoroscopy time: 1.6% minutes DAP: 22.4 Gycm2 Images: 4 FINDINGS: Images demonstrate placement of needles L3-S1 bilaterally. FL/FL guidance in treatment room IMPRESSION: Needle positioning for pain management.
== END 2021-07-16 06:22 | disposition home or self-care (01) ==
LOC: HO.RADIR 06:21
PROVIDERS: Visit Provider Anesthesiology
DX: M51.36 Other intervertebral disc degeneration, lumbar region (principal); M54.16 Radiculopathy, lumbar region; M47.816 Spondylosis without myelopathy or radiculopathy, lumbar region
CPT/HCPCS: 64635; 64636; J3300

== ENCOUNTER 2021-08-08 17:00 | Outpatient (RCR) | payer MEDICAID, SELFPAY | END 2021-08-23 11:50 | disposition home or self-care (01) | LOC: HO.PT 17:00 | PROVIDERS: PCP Nurse Practitioner Primary Care; Visit Provider Physician Assistant | DX: Z96.642 Presence of left artificial hip joint (principal) | CPT/HCPCS: 97110; 97150; 97161; 97530 ==

== ENCOUNTER → 2021-08-19 11:00 | Outpatient (BNVA) | payer MEDICAID, SELFPAY | PROVIDERS: PCP Nurse Practitioner Primary Care; Visit Provider Anesthesiology | DX: M51.36 Other intervertebral disc degeneration, lumbar region (principal); M54.16 Radiculopathy, lumbar region; M47.816 Spondylosis without myelopathy or radiculopathy, lumbar region | CPT/HCPCS: 99212 ==

== ENCOUNTER 2023-01-09 13:47 | Outpatient (REF) | payer MEDICAID, SELFPAY ==
--- NOTE | ~2023-01-09 | XR_ITS ---
EXAMINATION: XR SHOULDER, RIGHT CLINICAL INFORMATION: Chronic right shoulder pain COMPARISON: None TECHNIQUE: AP external rotation, Grashey, scapular Y, and axillary views of the right shoulder. FINDINGS: There is mild acromioclavicular osteoarthritis. Glenohumeral joint is well preserved. No fracture. Alignment is anatomic. Soft tissues are normal with no abnormal calcifications. XR/XR shoulder RT min 2V IMPRESSION: Mild osteoarthritis of the acromioclavicular joint.
== END 2023-01-09 13:48 | disposition home or self-care (01) ==
LOC: HO.XRAY 13:47
PROVIDERS: PCP Nurse Practitioner Primary Care; Visit Provider Nurse Practitioner Primary Care
DX: M25.511 Pain in right shoulder (principal); G89.29 Other chronic pain
CPT/HCPCS: 73030

== ENCOUNTER 2023-07-16 14:48 | Outpatient (AMB) | payer OTHER, MEDICAID, SELFPAY ==
--- NOTE | 2023-07-16 14:53 | MHC.OFFVIS ---
Intake Intake Visit Reasons: New Prob - Rt Shoulder pain Intake Note: Jamshid is a 48 year old right hand dominant male who presents today for a new problem visit with complaints of right shoulder pain. Patent reports that he has had an increase of pain about 6 months ago while at work, he was moving bike racks. He felt a tear in the shoulder with an immmidiate onset of pain. He feels pain at the front of the shoulder. Allergies No Known Allergies [No Known Allergies*] Allergy (Verified 07/16/21 12:48) HPI New Prob - Rt Shoulder pain HPI Details Jamshid is a 48 year old man who presents with complaints of right shoulder pain. This is a work related injury. He complains of pain with daily activity, worse with overhead activity and at night. He denies any treatment since this incident. He says ~6 months ago he was lifting bike racks at his job when he felt a painful tearing in his shoulder, and his pain has bee present since. He has a hx of right RTC repair in ~2017. He has left hip OA and a hx of a right ANNETTE in 2021 by an outside provider [facility] Medical History (Updated 07/16/23 @ 15:01 by Shamar Mcclain) Abdominal pain Disc degeneration, lumbar Encounter for screening colonoscopy High blood pressure History of opioid abuse Left hip pain Leukocytosis Primary osteoarthritis of right hip Rectal bleeding Right lumbar radiculopathy Spondylosis without myelopathy or radiculopathy, lumbar region Surgical History History of repair of right rotator cuff Family History Mother No problems noted. 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 Review of Systems Const All systems reviewed & are unremarkable except as noted in HPI and below Physical Exam Const General: no acute distress, alert and awake Orientation/consciousness: patient oriented x3 HEENT Head: Yes normocephalic and Yes atraumatic Eyes EOM: EOMs intact bilaterally Resp Effort & Inspection: normal respiratory effort and able to speak in complete sentences Cardio Jugular venous distension: no JVD Skin General skin exam: turgor normal Rashes: no rashes Neuro General: patient oriented x3 Extrem Other: Right Shoulder: + H&N [ ] empty can Psych Appearance: grossly normal Affect: normal affect Attitude: cooperative Assessment & Plan Assessment & Plan (1) Impingement syndrome of right shoulder: Code(s): M75.41 - Impingement syndrome of right shoulder Plan: This is a 48 year old man with right shoulder impingement, after a work injury in 12/2022. He has a hx of a RTC repair at an outside clinic in ~2017. He complains of pain with daily activity, worse with overhead activity and at night. I discussed his diagnosis and treatment options. I ordered PT. He can follow up prn. Plan Scribed for Thien Banks MD by Shamar Mcclain, medical assistant internal medicine, on 07/16/23 at 3:00 PM, EST. Orders: Orders PT Evaluation and Treatment 07/16/23 M75.41 - Impingement syndrome of right shoulder, Z98.890 - Other specified postprocedural states Coding Level of Care Code Est Pt Level 3 (57576) Diagnoses Impingement syndrome of right shoulder M75.41
== END 2023-07-16 15:10 | disposition home or self-care (01) ==
PROVIDERS: PCP Nurse Practitioner Primary Care; Visit Provider Orthopaedic Surgery
DX: M75.41 Impingement syndrome of right shoulder (principal)
CPT/HCPCS: 99213

== ENCOUNTER → 2023-07-16 14:48 | Outpatient (BNVA) | payer OTHER, MEDICAID, SELFPAY | PROVIDERS: PCP Nurse Practitioner Primary Care; Visit Provider Orthopaedic Surgery ==

== ENCOUNTER 2024-10-04 09:18 | Outpatient (REF) | payer OTHER, SELFPAY ==
[2024-10-04 10:03] LABS: MANUAL DIFF FLAG NO
[2024-10-04 10:17] LABS: Basophils Absolute Auto 0.1 X10*3/uL (0.0-0.2); Basophils Percent Auto 0.8 % (0-2); Eosinophils Absolute Auto 0.3 X10*3/uL (0.0-0.4); Eosinophils Percent Auto 2.4 % (0-4); Hemoglobin 13.8 g/dl (14.0-18.0); Imm Gran Abs Auto 0.04 X10*3/uL (0.00-0.03); Imm Gran Pct Auto 0.4 % (0.0-0.4); Lymphocytes Absolute Auto 2.1 X10*3/uL (1.2-4.9); Mean Corpuscular HGB Conc 32.9 g/dl (31.0-36.0); Mean Corpuscular Hemoglobin 28.1 pg (27.0-33.0); Mean Corpuscular Volume 85.5 fL (80.0-98.0); Mean Platelet Volume 9.8 fL (9.4-12.4); Monocytes Absolute Auto 0.7 X10*3/uL (0.1-1.2); Monocytes Percent Auto 6.7 % (2-11); Neutrophils Absolute Auto 7.2 x10*3/uL (2.0-8.3); Neutrophils Percent Auto 69.7 % (45-73); Platelet Count 331 X10*3/uL (160-400); Red Blood Count 4.91 X10*6/uL (4.60-5.80); Red Cell Distribution Width 14.3 % (11.0-16.0); White Blood Count 10.4 X10*3/uL (4.8-10.8)
[2024-10-04 10:28] LABS: Estimated Average Glucose 114 mg/dL; Hemoglobin A1C 137.7169 umol/L; Hemoglobin A1c % 5.6 % (<6.0)
[2024-10-04 11:56] LABS: HIV AB/AG Nonreactive (Nonreactive); HIV Num 1 0.06 S/CO (0.00-0.99); ~HepC Num1 0.13 S/CO (0.00-0.79); ~Hepatitis C Antibody Nonreactive (Nonreactive)
[2024-10-04 12:09] LABS: Alanine Aminotransferase 32 U/L (0-40); Albumin Level 4.4 g/dL (3.5-5.0); Alkaline Phosphatase 70 U/L (39-117); Anion Gap 8 (12-20); Aspartate Amino Transferase 20 U/L (5-37); Bilirubin Total 0.8 mg/dL (0.0-1.0); Blood Urea Nitrogen 13 mg/dL (9-16); Calcium 8.9 mg/dL (8.4-10.2); Carbon Dioxide 24 mmol/L (22-29); Chloride 111 mmol/L (96-108); Cholesterol 176 mg/dL (<200); Estimated Glomerular Filt Rate > 60; Glucose Random 104 mg/dL (60-115); HDL Cholesterol 46 mg/dL (>40); LDL Cholesterol Calculated 101 mg/dL (<100); Potassium 3.9 mmol/L (3.3-5.1); Sodium 139 mmol/L (135-145); TSH reflex Free T4 0.88 uIU/mL (0.32-4.0); Total Protein 7.4 g/dL (6.5-8.0); Triglycerides 148 mg/dL (<150)
[2024-10-06 07:08] LABS: RPR Rapid Plasma Reagin NON-REACTIVE (NON-REACTIVE)
== END 2024-10-04 09:19 | disposition home or self-care (01) ==
LOC: HO.XRAY 09:18
PROVIDERS: PCP Nurse Practitioner Primary Care; Referring Provider Nurse Practitioner Primary Care; Visit Provider Student in an Organized Health Care Education/Training Program
DX: I10 Essential (primary) hypertension (principal); E78.5 Hyperlipidemia, unspecified; K59.00 Constipation, unspecified; Z11.3 Encounter for screening for infections with a predominantly sexual mode of transmission; M25.551 Pain in right hip; Z13.1 Encounter for screening for diabetes mellitus
CPT/HCPCS: 36415; 73502; 80053; 80061; 83036; 84443; 85025; 86592; 86803; 87389

== ENCOUNTER → 2024-12-21 14:47 | Outpatient (BNVA) | payer OTHER, SELFPAY | PROVIDERS: PCP Nurse Practitioner Primary Care; Visit Provider Internal Medicine Cardiovascular Disease | DX: R06.09 Other forms of dyspnea (principal); E78.5 Hyperlipidemia, unspecified; I10 Essential (primary) hypertension; F17.200 Nicotine dependence, unspecified, uncomplicated; Z71.6 Tobacco abuse counseling | CPT/HCPCS: 93005 ==

== ENCOUNTER → 2024-12-29 14:49 | Outpatient (REF) | payer OTHER, SELFPAY ==
--- NOTE | 2024-12-29 14:52 | CA_ITS ---
Transthoracic Echocardiogram Patient (Last, First, Middle): Jamshid Tejada A Gender: Male Date of : 1975 Age: 49 Procedure Date: 12/29/2024 Procedure Type: Transthoracic Echocardiogram Location: OP Height: 182.88 cm Weight: 104.33 kg BSA: 2.26 m2 Heart Rate: bpm BP: 130 / 82 mmHg Support Services Coordinator: TO Referring MD: Florencio Trinidad MD Vice President Of Marketing: Florencio Trinidad MD Symptoms: R06.09 - Other forms of dyspnea Study Quality: Adequate ECG Rhythm: Sinus Conclusions: - Essentially normal study Findings Left Ventricle Normal left ventricular size, thickness, and systolic function. The visually estimated ejection fraction is between 60-65%. Spectral Doppler is indicative of a normal filling pattern. Peak GLS is -19.4%, within normal limits Right Ventricle Normal right ventricular cavity size and systolic function. Atria Both atria are normal in size. There is no evidence of interatrial shunt. Aortic Valve Normal aortic valve structure and function. There is no aortic valve stenosis. There is no aortic valve regurgitation. Mitral Valve Normal mitral valve structure and function. There is trace mitral valve regurgitation. There is no mitral valve stenosis. Pulmonic Valve The pulmonic valve was not well visualized. Tricuspid Valve Likely normal tricuspid valve structure and function. Tricuspid regurgitation envelope is inadequate for calculation of right ventricular systolic pressure. Normal right atrial pressure. Great Vessels All visible segments of the aorta are normal in size. The pulmonary artery was not well visualized. There is no dilatation of the ascending aorta measuring 3.00 cm. Venous The inferior vena cava is normal in size and collapses greater than 50% with inspiration. Pericardium/Pleural There is no evidence of pericardial effusion. Prior Study Comparison No prior study available for comparison. Measurements 2D Linear Measurements IVSd: 0.96 0.6-0.9/0.6-1.0 cm LVIDd: 5.51 3.9-5.3/4.2-5.9 cm LVIDd Index: 2.44 2.4-3.2/2.2-3.1 cm/m2 LVIDs: 3.91 2.0-3.6 cm LVPWd: 0.80 0.7-1.1 cm LA Diam: 4.50 2.7-3.8/3.0-4.0 cm LAIDs Index: 1.99 1.5-2.3 cm/m2 LV Mass: 224.98 67-162/88-224 g LV Mass Index: 99.55 43-95/49-115 g/m2 LVOT Diam: 2.50 3.0+(-)1.3 cm 2D Systolic Function EF 4C: 62.20 >55% EF 2C: 59.20 >55% EF BiP: 60.30 >55% Mitral Valve MV Pk E: 0.59 MV PK A: 0.46 MV Decel Time: 170.00 E/A: 1.30 E'Lateral: 10.40 E'Medial: 8.49 E/E' Med: 6.90 E/E' Lat: 5.60 PHT: 50.00 MVA PHT: 4.[address] [place]: 3.46 Aortic Valve AoV Pk Von: 1.12 AoV Mn Von: 0.87 AoV VTI: 0.23 AoV Pk Grad: 5.00 Aov Mn Grad: 3.00 TYRA Cont.VTI: 3.62 LVOT LVOT Pk Von: 0.84 LVOT Mn Von: 0.54 LVOT VTI: 0.17 LVOT Pk Grad: 3.00 LVOT Mn Grad: 1.00 LVOT Diam: 2.50 LVOT Area: 4.91 Diastolic Function MV Pk E: 0.59 MV Pk A: 0.46 E/A: 1.30 E'Medial: 8.49 E/E' Med: 6.90 E' Laterial: 10.40 E/E' Lat: 5.60 Right Ventricle TAPSE (mm): 24.30 TVS' Von: 11.50 Tricuspid Valve RA Press: 3.00 Great Vessels Aorta Sinus of Valsalva: 3.29 2.0-3.5 cm Ao Asc: 3.00 2.1-3.4 cm Ao Arch: 3.00 Updated in Other Vendor System with Status of Final Florencio Trinidad MD electronically signed on 12/30/2024 4:00:30 PM with status of Final
--- OUTSIDE RECORDS SUMMARY | 2024-12-29 14:52 | XMS_ITS | Encounter Summary ---
Author Organization [employer] Address [address] [facility] 7t [place] [address] Care Team Providers Care Machine Sizer Name Role Phone Anna Marie Cameron Primary Care Provider [phone] Reason for Visit * Reason Onset Date Comments Med Refill 07/25/2024 Encounter Details Date Type Department Care Team ([facility] st Contact Info) Description 07/25/2024 Telephone [facility] MEDICINE [address] [place], [place] [phone] Anna Marie Cameron ANP [address] [place] [address] Med Refill Social History Tobacco Use Types Packs/Day Years Used Date Smoking Tobacco: Every Day Cigarettes Smokeless Tobacco: Never Comments:Pt had gotten down to 1/2ppd with name brand chantix, once he started receiving generic, cravings were not being met so usage went back to 1ppd Alcohol Use Standard Drinks/Week Comments Yes 6 (1 standard drink = 0.6 oz pur e alcohol) 2-3 beers a few nights a week Depression Answer Date Recorded Patient Health Questionnaire-9 Score 0 03/10/2024 Patient Health Questionnaire-9 Score 0 03/10/2024 Last PHQ-9: Questionnaire Data Not on file 0 03/10/2024 Housing Stability Answer Date Recorded What is your housing situation today? I have franky wong 03/03/[address] you li ve. Do you have problems with any of the following? None of the above;Pests such as bugs, ants, or mice 03/03/2024 Food Insecurity Answer Date Recorded Within the past 12 months, y ou worried that your food would run out before you got money to buy more: Often true 03/03/2024 Within the past 12 months,th e food you bought just didn't last and you didn't have enough money to get more: Often true Transportation Answer Date Recorded In the past 12 months, has l ack of transportation kept you from medical appts, meetings, work or from getting things needed for daily living? No 03/03/2024 Utilities Answer Date Recorded In the past 12 months, has t he electric, gas, oil or water company threatened to shut off services in your home? No 03/03/2024 Depression Answer Date Recorded Patient Health Questionnaire-2 Score 0 03/10/2024 Sex and Gender Information Value Date Recorded Sex Assigned at Male 09/15/2022 10:32 AM EDT Legal Sex Male 10:32 AM EDT Gender Identity Male 09/15/2022 10:32 AM EDT Sexual Orientation Straight 09/15/2022 10 :32 AM EDT documented as of this encounter Miscellaneous Notes * Telephone Encounter - Alaina Pimentel - 07/25/2024 8:52 AM EDT TC from pt requesting medication refill. Medications needing refill : oxyCODONE (Roxicodone) 5 MG immediate release tablet To be sent to: [facility]/pharmacy #[address] [place] [address] documented in this encounter Plan of Treatment Upcoming Encounters Date Type Department Care Team ([facility] st Contact Info) Description 03/01/2025 2:45 PM EDT Clinical Support [facility] MED & PEDS [address] [place] [address] Jeniffer Busby, JORDAN [address] [place] [address] documented as of this encounter Visit Diagnoses Not on filedocumented in this encounter Additional Health Concerns Assessment Noted Time PHQ-9 Depression Total Score: 0 03/10/20 24 9:49 AM EDT documented as of this encounter Care Teams Machine Sizer Relationship Specialty Start Date End Date Anna Marie Cameron ANP [address] [place] [address] PCP - General Family Medicine 05/01/20 documented as of this encounter
--- OUTSIDE RECORDS SUMMARY | 2024-12-29 14:52 | XMS_ITS | Encounter Summary ---
Author Organization [employer] Address [address] [facility] 7t [place] [address] Care Team Providers Care Education Reviewer Name Role Phone Anna Marie Cameron Primary Care Provider [phone] Reason for Visit * Reason Onset Date Comments Med Refill 10/03/2024 Encounter Details Date Type Department Care Team ([facility] st Contact Info) Description 10/03/2024 Telephone [facility] MEDICINE [address] [place], [place] [phone] Anna Marie Cameron ANP [address] [place] [address] Med Refill Social History Tobacco Use Types [...] encounter Miscellaneous Notes * Telephone Encounter - Aniceto Lino - 10/03/2024 8:38 AM EST TC from pt requesting medication refill. Medications needing refill : oxyCODONE (Roxicodone) 5 MG immediate release tablet To be sent to: /pharmacy #[address] [place] [address] documented in this encounter Plan of Treatment Upcoming Encounters Date Type Department Care Team (Late st Contact Info) Description 03/01/2025 2:45 PM EDT Clinical Support [facility] MED & PEDS [address] [place] [address] Jeniffer Busby, JORDAN [address] [place] [address] documented as of this encounter Visit Diagnoses Not on filedocumented in this encounter Additional Health Concerns Assessment Noted Time PHQ-9 Depression Total Score: 0 03/10/20 24 9:49 AM EDT documented as of this encounter Care Teams Education Reviewer Relationship Specialty Start Date End Date Anna Marie Cameron ANP [address] [place] [address] PCP - General Family Medicine 05/01/20 documented as of this encounter
--- OUTSIDE RECORDS SUMMARY | 2024-12-29 14:52 | XMS_ITS | Encounter Summary ---
Author Organization [employer] Address [address] [facility] 7t [place] [address] Care Team Providers Care Cigarette Seller Name Role Phone Anna Marie Cameron Primary Care Provider [phone] Reason for Visit * Reason Onset Date Comments Med Refill 06/13/2024 Encounter Details Date Type Department Care Team ([facility] st Contact Info) Description 06/13/2024 Telephone [facility] MEDICINE [address] [place], [place] [phone] Anna Marie Cameron ANP [address] [place] [address] Med Refill Social History Tobacco Use Types [...] * Telephone Encounter - Alaina Pimentel - 06/13/2024 10:18 AM EDT TC from pt requesting medication refill. Medications needing refill : oxyCODONE (Roxicodone) 5 MG immediate release tablet To be sent to: [facility]/pharmacy #[address] [place] [address] documented in this encounter Plan of Treatment Upcoming Encounters Date Type Department Care Team ([facility] st Contact Info) Description 03/01/2025 2:45 PM EDT Clinical Support [facility] MED & PEDS [address] [place] [address] Jeniffer Busby, JORDAN 505 [place] [address] documented as of this encounter Visit Diagnoses Not on filedocumented in this encounter Additional Health Concerns Assessment Noted Time PHQ-9 Depression Total Score: 0 03/10/20 24 9:49 AM EDT documented as of this encounter Care Teams Cigarette Seller Relationship Specialty Start Date End Date Anna Marie Cameron ANP [address] [place] [address] PCP - General Family Medicine 05/01/20 documented as of this encounter
--- OUTSIDE RECORDS SUMMARY | 2024-12-29 14:52 | XMS_ITS | Encounter Summary ---
Author Organization [employer] Address 75 [facility] 7t [place] [address] Care Team Providers Care Cardiac Cath Technician Name Role Phone Anna Marie Cameron Primary Care Provider [phone] Reason for Visit * Reason Onset Date Comments Med Refill 06/27/2024 Encounter Details Date Type Department Care Team ([facility] st Contact Info) Description 06/27/2024 Telephone [facility] MEDICINE [address] [place], [place] [phone] Anna Marie Cameron ANP [address] [place] [address] Med Refill Social History Tobacco Use Types [...] encounter Miscellaneous Notes * Telephone Encounter - Papo Alexander - 06/27/2024 9:25 AM EDT TC from pt requesting medication refill. Medications needing refill : oxyCODONE (Roxicodone) 5 MG immediate release tablet To be sent to: [facility] documented in this encounter Plan of Treatment Upcoming Encounters Date Type Department Care Team (Late st Contact Info) Description 03/01/2025 2:45 PM EDT Clinical Support [facility] MED & PEDS 505 [place] [address] Jeniffer Busby RN 505 [place] [address] documented as of this encounter Visit Diagnoses Not on filedocumented in this encounter Additional Health Concerns Assessment Noted Time PHQ-9 Depression Total Score: 0 03/10/20 24 9:49 AM EDT documented as of this encounter Care Teams Cardiac Cath Technician Relationship Specialty Start Date End Date Anna Marie Cameron ANP [address] [place] [address] PCP - General Family Medicine 05/01/20 documented as of this encounter
--- OUTSIDE RECORDS SUMMARY | 2024-12-29 14:52 | XMS_ITS | Encounter Summary ---
Author Organization [employer] Address [address] [facility] [address] 7t [place] [address] Care Team Providers Care Oil Burner Servicer And Installer Name Role Phone Anna Marie Cameron Primary Care Provider [phone] Reason for Visit * Reason Onset Date Comments Med Refill 12/26/2024 Encounter Details Date Type Department Care Team (Late st Contact Info) Description 12/26/2024 Refill [facility] MEDICINE [address] [place] [address] Anna Marie Cameron ANP [address] [place] [address] Chronic pain of both hips Social History Tobacco Use Types Packs/Day Years [...] * Telephone Encounter - Papo Alexander - 12/26/2024 9:04 AM EST TC from pt requesting medication refill. Medications needing refill : oxyCODONE (Roxicodone) 5 MG immediate release tablet To be sent to: [facility]/pharmacy #[id number] [place] [address] documented in this encounter Plan of Treatment Upcoming Encounters Date Type Department Care Team ([facility] st Contact Info) Description 03/01/2025 2:45 PM EDT Clinical Support [facility] MED & PEDS 505 [place] [address] Jeniffer Busby, JORDAN [address] [place] [address] documented as of this encounter Visit Diagnoses Diagnosis Chronic pain of both hips documented in this encounter Additional Health Concerns Assessment Noted Time PHQ-9 Depression Total Score: 0 03/10/20 24 9:49 AM EDT documented as of this encounter Care Teams Oil Burner Servicer And Installer Relationship Specialty Start Date End Date Anna Marie Cameron ANP [address] [place] [address] PCP - General Family Medicine 05/01/20 documented as of this encounter
--- OUTSIDE RECORDS SUMMARY | 2024-12-29 14:52 | XMS_ITS | Encounter Summary ---
Author Organization [employer] Address [address] [facility] [address] 7[address] [place] [address] Care Team Providers Care Life Skills Teacher Name Role Phone Anna Marie Cameron Primary Care Provider Reason for Visit * Reason Onset Date Comments Referral 01/02/2023 Encounter Details Date Type Department Care Team ([facility] st Contact Info) Description 01/02/2023 Telephone [facility] MEDICINE 230 [place], [place] [phone] Anna Marie Cameron ANP [address] [place], [place] [phone] Referral Social History Tobacco Use Types Packs/Day Years Used Date Smoking Tobacco: Never Assessed Depression Answer Date Recorded Patient Health Questionnaire-9 [...] Orientation Straight 09/15/2022 10 :32 AM EDT COVID-19 Exposure Response Date Recorded In the last 10 days, have yo u been in contact with someone who was confirmed or suspected to have Coronavirus/COVID-19? No / Unsure 05/13/2023 1:55 PM EDT documented as of this encounter Miscellaneous Notes * Telephone Encounter - Glenn Juarez - 01/02/2023 2:28 PM EST Tc from pt requesting a different location for orthopedics referral, states would like to be referred to [facility] , [address], [place] [address] . Pt was referred to [facility]. Please contact at [phone] documented in this encounter Plan of Treatment Upcoming Encounters Date Type Department Care Team (Late st Contact Info) Description 03/01/2025 2:45 PM EDT Clinical Support [facility] MED & PEDS [address] [place] [address] Jeniffer Busby, JORDAN [address] [place] [address] documented as of this encounter Visit Diagnoses Not on filedocumented in this encounter Care Teams Life Skills Teacher Relationship Specialty Start Date End Date Anna Marie Cameron ANP 230 [place] [address] PCP - General Family Medicine 05/01/20 documented as of this encounter
--- OUTSIDE RECORDS SUMMARY | 2024-12-29 14:52 | XMS_ITS | Encounter Summary ---
Author Organization [employer] Address [address] [facility] 7t [place] [address] Care Team Providers Care Cabin Outfitter Name Role Phone Anna Marie Cameron Primary Care Provider [phone] Reason for Visit * Reason Onset Date Comments Med Refill 10/29/2023 Encounter Details Date Type Department Care Team ([facility] st Contact Info) Description 10/29/2023 Telephone [facility] MEDICINE [address] [place] [address] Anna Marie Cameron ANP [address] [place] [address] Med Refill Social History Tobacco Use Types [...] 2-3 beers a few nights a week Sex and Gender Information Value Date Recorded Sex Assigned at Male 09/15/2022 10:32 AM EDT Legal Sex Male 10:32 AM EDT Gender Identity Male 09/15/2022 10:32 AM EDT Sexual Orientation Straight 09/15/2022 10 :32 AM EDT documented as of this encounter Miscellaneous Notes * Telephone Encounter - Giovanni Caballero - 10/29/2023 9:27 AM EST Tc from patient requesting a medication refill for oxyCODONE (Roxicodone) 5 MG immediate release tablet. documented in this encounter Plan of Treatment Upcoming Encounters Date Type Department Care Team ([facility] st Contact Info) Description 03/01/2025 2:45 PM EDT Clinical Support [facility] MED & PEDS [address] [place] [address] Jeniffer Busby, RN [address] [place] [address] documented as of this encounter Visit Diagnoses Not on filedocumented in this encounter Care Teams Cabin Outfitter Relationship Specialty Start Date End Date Anna Marie Cameron ANP [address] [place] [address] PCP - General Family Medicine 05/01/20 documented as of this encounter
--- OUTSIDE RECORDS SUMMARY | 2024-12-29 14:52 | XMS_ITS | Encounter Summary ---
Author Organization [employer] Address [address] [facility] 7t [place] [address] Care Team Providers Care Early Head Start Teacher Name Role Phone Anna Marie Cameron Primary Care Provider [phone] Reason for Visit * Reason Onset Date Comments Med Refill 08/22/2024 Encounter Details Date Type Department Care Team ([facility] st Contact Info) Description 08/22/2024 Telephone [facility] MEDICINE [address] [place], [place] [phone] Anna Marie Cameron ANP [address] [place] [address] Med Refill Social History Tobacco Use Types [...] * Telephone Encounter - Giovanni Caballero - 08/22/2024 8:32 AM EDT TC from pt requesting medication refill. Medications needing refill : oxyCODONE (Roxicodone) 5 MG immediate release tablet To be sent to: [facility]/pharmacy #[address] [place] [address] documented in this encounter Plan of Treatment Upcoming Encounters Date Type Department Care Team ([facility] st Contact Info) Description 03/01/2025 2:45 PM EDT Clinical Support [facility] MED & PEDS [address] [place] [address] Jeniffer Busby, JORDAN 505 [place] [address] documented as of this encounter Visit Diagnoses Not on filedocumented in this encounter Additional Health Concerns Assessment Noted Time PHQ-9 Depression Total Score: 0 03/10/20 24 9:49 AM EDT documented as of this encounter Care Teams Early Head Start Teacher Relationship Specialty Start Date End Date Anna Marie Cameron ANP [address] [place] [address] PCP - General Family Medicine 05/01/20 documented as of this encounter
--- OUTSIDE RECORDS SUMMARY | 2024-12-29 14:52 | XMS_ITS | Encounter Summary ---
Author Organization [employer] Address [address] [facility] 7t [place] [address] Care Team Providers Care Laborer Steel Handling Name Role Phone Anna Marie Cameron Primary Care Provider [phone] Reason for Visit * Reason Onset Date Comments Med Refill 03/13/2023 Encounter Details Date Type Department Care Team ([facility] Contact Info) Description 03/13/2023 Telephone [facility] MEDICINE [address] [place] [address] Anna Marie Cameron ANP [address] [place] [address] Med Refill Social History Tobacco Use Types Packs/Day Years Used Date Smoking Tobacco: Every Day Cigarettes Smokeless Tobacco: Never Alcohol Use Standard Drinks/Week Comments Not Currently 0 (1 standard drink = 0.6 oz pur e alcohol) Sex and Gender Information Value Date Recorded Sex Assigned at Male 09/15/2022 10:32 AM EDT Legal Sex Male 10:32 AM EDT Gender Identity Male 09/15/2022 10:32 AM EDT Sexual Orientation Straight 09/15/2022 10 :32 AM EDT documented as of this encounter Miscellaneous Notes * Telephone Encounter - Chelsea Ivey - 03/13/2023 3:41 PM EDT Tc from patient requesting a med refill on medication oxycodone [address] Cameron documented in this encounter Plan of Treatment Upcoming Encounters Date Type Department Care Team ([facility] st Contact Info) Description 03/01/2025 2:45 PM EDT Clinical Support [facility] MED & PEDS [address] [place] [address] Jeniffer Busby, RN [address] [place] [address] documented as of this encounter Visit Diagnoses Not on filedocumented in this encounter Care Teams Laborer Steel Handling Relationship Specialty Start Date End Date Anna Marie Cameron ANP [address] [place] [address] PCP - General Family Medicine 05/01/20 documented as of this encounter
--- OUTSIDE RECORDS SUMMARY | 2024-12-29 14:52 | XMS_ITS | Clinical Summary ---
Author Organization [employer] Address [address] [facility] [address] [place] [address] Care Team Providers Care Drop Tester Name Role Phone Gustavo Garg SHILA Primary Care Provider [phone] Allergies No known active allergies Medications naloxone (Narcan) 4 mg/0.1 mL nasal spray Administer 0.1 mL into affected nostril(s). 022 Active nicotine (Nicoderm, Step 1) 21 MG/24HR patch Place 1 patch on the skin at bed time. 022 Active senna (Senokot) 8.6 MG tabletIndication s:Constipation, unspecified constipation type Take 1-2 tablets at bedtime as needed for constipation 120 tablet 022 Active ibuprofen 800 MG tabletIndication s:Pain in left hip TAKE 1 TAB WITH FOOD EVERY 8 HOURS NEEDED FOR PAIN 120 tablet 1 023 Active Calcium Polycarbophil (fiber) 625 MG tabletIndication s:Constipation, unspecified constipation type Take 2 tablets by mouth with 8oz of water, start with once daily, can increase as tolerated up to TID 180 tablet 3 023 Active varenicline (Chantix) 0.5 MG tabletIndication s:Cigarette nicotine dependence without complication Take 1 tab daily for 3 days, then 1 tab twice daily for 4 days. Switch to 1mg rx after finishing. Take with full glass of water. 11 tablet 023 Active Additional Information Patient not taking.Reported on 10/03/2024 varenicline (Chantix) 1 MG tabletIndication s:Cigarette nicotine dependence without complication Take 1 tablet (1 mg) by mouth every 12 (twelve) hours. Take with full glass of water. 60 tablet 3 023 Active Additional Information Patient not taking.Reported on 10/03/2024 omeprazole (PriLOSEC) [address] capsule TAKE 1 CAPSULE BY MOUTH EVERY DAY BEFORE A MEAL 90 capsule 1 024 Active lidocaine (Lidoderm) 5 % patchIndications :Right hip pain Apply 1 patch topically Once per day. Remove & discard patch within 12 hours or as directed by MD. 30 patch 2 024 Active atorvastatin (Lipitor) 20 MG tabletIndication s:Dyslipidemia TAKE 1 TABLET BY MOUTH EVERY DAY 90 tablet 1 024 Active buPROPion SR (Wellbutrin SR) 150 MG 12 hr tabletIndication s:Smoking Take 1 tablet (150 mg) by mouth 2 times daily. Do not crush, chew, or split. 60 tablet 025 2025 Active Blood Pressure kitIndications:E ssential hypertension 1 each 2 times daily. 1 kit 025 2025 Active nicotine polacrilex (Nicorette Mini) 4 MG lozengeIndicatio ns:Smoking Dissolve 1 lozenge (4 mg) in the mouth every 2 (two) hours if needed for smoking cessation. 100 lozenge 11 Active oxyCODONE (Roxicodone) 5 MG immediate release tabletIndication s:Chronic pain of both hips May take 2 tablets (10 mg) by mouth every 12 (twelve) hours if needed for severe pain. May also take 1 tablet (5 mg) every 12 (twelve) hours if needed for severe pain. Do all this for 14 days. 42 tablet 025 2024 Active lidocaine-priloc anne-marie (Emla) 2.5-2.5 % cream Apply topically if needed each day for mild pain (right hip pain). 5 g 1 024 2024 oxyCODONE (Roxicodone) 5 MG immediate release tabletIndication s:Chronic pain of both hips May take 2 tablets (10 mg) by mouth every 12 (twelve) hours if needed for severe pain. May also take 1 tablet (5 mg) every 12 (twelve) hours if needed for severe pain. Do all this for 14 days. 42 tablet 025 2024 Discontinued(R eorder (will not trigger notification to Pharmacy)) oxyCODONE (Roxicodone) 5 MG immediate release tabletIndication s:Chronic pain of both hips May take 2 tablets (10 mg) by mouth every 12 (twelve) hours if needed for severe pain. May also take 1 tablet (5 mg) every 12 (twelve) hours if needed for severe pain. Do all this for 14 days. 42 tablet 025 2024 Discontinued(R eorder (will not trigger notification to Pharmacy)) Active Problems Problem Noted Date Diagnosed Date Right hip pain 10/03/2024 Assessment & Plan (10/03/2024 1:37 PM EST): Possible associated w OA ,bursitis ? 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 Ibuprofen 800mg. Heat, ice, stretching. He is s/p L hip repacement Cardiovascular event risk 12/08/2022 Status post total hip replacement, left 05/27/20 21 Abnormal EKG 04/09/2021 Overview (12/08/2022): Last Assessment & Plan: As above he has localized ST depressions in 3 and aVF without prior EKGs. There is no other findings of prior ischemia. Curbside with cardiology recommends an echo, if normal no further work-up is needed. If abnormal will likely need referral to cardiology for further evaluation prior to surgery. Essential hypertension 02/01/2019 Toenail fungus 01/04/2019 Nicotine dependence 10/06/2017 Resolved Problems Problem Noted Date Diagnosed Date Resolved Date ERRONEOUS ENCOUNTER--DISREGARD 04/10/2023 06/12/2023 Encounters Date Type Department Care Team Description 12/26/2024 Refill [facility] [address] [place] [address] Gustavo Garg ANP Chronic pain of both hips 12/20/2024 Refill [facility] [address] [place] [address] Gustavo Garg ANP Smoking 12/12/2024 Refill [facility] [address] [place] [address] Gustavo Garg ANP Chronic pain of both hips 11/28/2024 Refill [facility] [address] [place] [address] Gustavo Garg ANP Chronic pain of both hips 11/24/2024 2:00 PM EST Office Visit [address] [address] Gustavo Garg ANP Screening for malignant neoplasm of colon (Primary Dx); Chest pain, unspecified type; Smoking; Essential hypertension; Calcaneal spur, unspecified laterality 11/24/2024 Travel 11/22/2024 3:00 PM EST Clinical Support [facility] [address] [place], [place] [phone] Jeniffer Busby RN Chronic right shoulder pain 11/22/2024 Travel 11/14/2024 Refill [facility] [address] [place] [address] Gustavo Garg ANP Chronic pain of both hips 11/07/2024 Telephone [facility] [address] [place] [phone] Joel Ding MA PA from [facility] 11/04/2024 Orders Only [facility] [address] [place] [phone] Garg, Gustavo, ANP Chronic pain of both hips (Primary Dx) 11/04/2024 Telephone [facility] [address] [facility] [place] [address] Joel Ding MA PA from [facility] 10/31/2024 Telephone [facility] [address] [facility] [place] [address] Aisha House, investment executive 10/31/2024 Refill [facility] [address] [facility] [place] [address] Gustavo Garg ANP Chronic pain of both hips 10/17/2024 Refill [facility] [address] [place] [address] Jeniffer Busby, airport planner pain of both hips 10/17/2024 Telephone [facility] [address] [facility] [place] [address] Gustavo Garg ANP Med Refill 10/06/2024 Telephone [facility] [place] [address] Aisha House, hydrochloric manufacturing supervisor 10/06/2024 Telephone [facility] [address] [facility] [place] [address] Gustavo Garg ANP 10/05/2024 Refill [facility] [address] [facility] [place] [address] Gustavo Garg ANP Dyslipidemia 10/04/2024 Orders Only [facility] [place] [address] Mela Pinedo MD 10/04/2024 Telephone [facility] [place] [address] Lou Rodgers RN 10/03/2024 1:00 PM EST Office Visit [facility] [place] [address] Mela Pinedo MD Right hip pain (Primary Dx) 10/03/2024 Telephone [facility] [address] [facility] [place] [address] Gustavo Garg ANP Letter for School/Work 10/03/2024 Travel 10/03/2024 Refill [facility] [address] [place] [address] Jeniffer Busby RN Chronic pain of both hips 10/03/2024 Telephone [facility] [address] [place] [address] Gustavo Garg ANP Nurse Triage 10/03/2024 Telephone [facility] [address] [place] [address] Gustavo Garg ANP Med Refill from Last 3 Months Immunizations Name Administration Dates Next Due Hep B, adult 11/14/2019,10/11/2019 Influenza injectable quadriv alent IIV4 with preservative 10/11/2019,10/27/2017 Influenza injectable quadriv alent preservative free 07/28/2022,11/11/2021 Moderna Covid-19 Vaccine 12+ 10/22/2021,03/25/20 21,02/25/2021 Pneumococcal Conjugate PCV 20 03/10/2024 Tdap 11/14/2019 Family History Medical History Relation Name Comments COPD Mother Diabetes Mother Relation Name Status Comments Mother Social History Tobacco Use Types Packs/Day Years Used Date Smoking Tobacco: Every Day Cigarettes Smokeless Tobacco: Never Tobacco Cessation:Ready to Q uit: Yes; Counseling Given: Yes Comments:Pt had gotten down to 1/2ppd with [...] Orientation Straight 09/15/2022 10 :32 AM EDT Last Filed Vital Signs Vital Sign Reading Time Taken Comments Blood Pressure 138/82 11/24/2024 2:49 PM EST Pulse 90 11/24/2024 2:20 PM EST Temperature 36.8 ??C (98.2 ??F) 11/24/2024 2:20 PM ES T Respiratory Rate 14 11/24/2024 2:20 PM EST Oxygen Saturation 98% 11/24/2024 2:20 PM EST Inhaled Oxygen Concentration - - Weight 104 kg (229 lb) 11/24/2024 2:20 PM EST Height 180.3 cm (5' 11 ) 10/03/2024 1:07 PM EST Body Mass Index 31.94 10/03/2024 1:07 PM EST Plan of Treatment Upcoming Encounters Date Type Department Care Team (Late st Contact Info) Description 03/01/2025 2:45 PM EDT Clinical Support [facility] [address] [place] [address] Jeniffer Busby, RN [address] [place] [address] Health Maintenance Due Date Last Done Comments CT Colonography 1975 Colonoscopy 1977 Colorectal Cancer Screening 1975 FIT DNA/Cologuard 1977 FIT 1977 FOBT 1975 Sigmoidoscopy 1977 Alcohol/Substance Use Screening 1989 Family Planning (PISQ) 02/25/1992 Hepatitis A Vaccines (1 of 2 - Risk 2-dose series) 02/25/1996 Hepatitis B Vaccines (3 of 3 - 19+ 3-dose series) 04/10/2020 11/14/2019, 10/11/2019 COVID-19 Vaccine (5 - season) 2024 09/15/2022, 10/22/2021, 03/25/2021, Additional history exists Influenza Vaccine (#1) 2024 , 11/11/2021, 10/11/2019, Additional history exists SDOH Screening 03/03/2025 03/03/2024 Depression Screening 03/10/2025 03/10/2024, 03/10/20 24 Tobacco Screening 11/24/2025 11/24/2024 Zoster Vaccines (1 of 2) 2027 Lipid Panel 10/04/2029 10/04/2024, 10/16, 03/12/2022, Additional history exists DTaP/Tdap/Td Vaccines (2 - Td or Tdap) 11/14/2029 11/14/2019 RSV Patients and Patients Aged 60 years or older (1 - 1-dose 75+ series) 02/25/2052 Pneumococcal Vaccine: Pediatrics (0 to 5 Years) and At-Risk Patients (6 to 49) Years) Completed 03/10/2024 HIV Screening Completed 10/04/2024 Hepatitis C Screening Completed 10/04/2024 HIB Vaccines Aged Out No longer eligi ble based on patient's age to complete this topic HPV Vaccines Aged Out No longer eligi ble based on patient's age to complete this topic IPV Vaccines Aged Out No longer eligi ble based on patient's age to complete this topic Meningococcal Vaccine Aged Out No angel marcus eligible based on patient's age to complete this topic RSV under 20 months Aged Out No longe r eligible based on patient's age to complete this topic Rotavirus Vaccines Aged Out No longer eligible based on patient's age to complete this topic Procedures Procedure Name Priority Date/Time Associated Diagnosis Comments POCT SREEKANTH-14 URINE DRUG SCREEN Routine 11/22/2024 3:25 PM EST Chronic right shoulder pain XR HIP 2 OR 3 VIEWS RIGHT Routine 10/04/2024 10:01 AM EST Right hip pain RPR (MONITOR) W/REFL TITER Routine 10/04/2024 10:00 AM EST Routine screening for STI (sexually transmitted infection) HEPATITIS C AB W/REFL TO HCV RNA, QN, PCR Routine 10/04/2024 10:00 AM EST Routine screening for STI (sexually transmitted infection) HIV 1/2 ANTIGEN/ANTIBODY, FOURTH GENERATION W/RFL Routine 10/04/2024 10:00 AM EST Routine screening for STI (sexually transmitted infection) TSH W/REFLEX TO FT4 Routine 10/04/2024 1 0:00 AM EST Constipation, unspecified constipation type HEMOGLOBIN A1C Routine 10/04/2024 10:00 AM EST Dyslipidemia CBC WITH AUTO DIFFERENTIAL Routine 10/04/2024 10:00 AM EST Constipation, unspecified constipation type COMPREHENSIVE METABOLIC PANEL Routine 10/04/2024 10:00 AM EST Essential hypertension Dyslipidemia LIPID PANEL, STANDARD Routine 10/04/2024 10:00 AM EST Dyslipidemia from Last 3 Months Results * POCT SREEKANTH-14 Urine Drug Screen (11/22/2024 3:25 PM EST) THC Positive Oxycodone Screen, Urine Positive Urine Urine specimen obtained by clean catch procedure / Unknown 11/22/2024 3:25 PM EST Narrative Jeniffer Busby RN - 11/22/2024 3:25 PM EST Lot# [id number] Exp: 10-22-25 Gustavo Garg [facility] POINT OF CARE TEST ENTER/EDIT OR DERABLES Final Result * XR Hip 2 or 3 Views Right (10/04/2024 10:01 AM EST) Anatomical Region Laterality Modality Lower Extremities, Hip Right Radiograp hic Imaging 10/04/2024 10:0 1 AM EST Narrative 11/29/2024 12:10 PM EST ? [facility] ?[address] ?[place] [address] ?XRay Report ? Signed ? Patient: Tejada,Bang ?MR#: [id number] ?? [id number] ? : 1975 ?Acct:[id number] ? Age/Sex: 49 / M ?ADM Date: 10/04/24 ? Loc: HO.XRAY ? Attending Dr: Mela Braden MD ? Ordering Physician: Mela Pinedo MD ?? Date of Service: 10/04/24 ?? Procedure(s): XR hip RT min 2V ?? Accession Number(s): [id number] ? cc: Mela Pinedo MD; GUSTAVO GARG NP ? EXAMINATION: ?? XR HIP, RIGHT ? CLINICAL INFORMATION: ?? Patient with 3 days of ongoing pain of his right hip. ? COMPARISON: ?? XR Right hip 09/14/2020 ? TECHNIQUE: ?? Two views of the right hip. ? FINDINGS: ?? Mild to moderate right hip osteoarthritis with superolateral and ?? posterior inferior joint space narrowing. Marginal osteophytes, ?? including the femoral head and neck junction anteriorly which may ?? predispose to femoroacetabular impingement. No acute osseous ?? abnormality. No significant change. ? XR/XR hip RT min 2V ?? IMPRESSION: ?? Mild to moderate right hip osteoarthritis, similar to the previous ?? study. ? Electronically signed by: ??Khang Jones MD ??11/29/2024 12:07 PM ?? EST ? Dictated By: ?Khang Jones MD ? Signed By: ?<Electronically signed by Khang Jones MD in OV> ? 11/29/24 1207 ? DD/ 1001 ? TD/TT: 10/04/24 1013 ? Order Puller: DM ? Procedure Note Randell, Alexandra - 11/29/[address] [address] XRay Report Signed Patient: Jamshid Tejada AMR#: [id number] : 1975Acct:[id number] Age/Sex: 49 / MADM Date: 10/04/24 Loc: HO.MARIOLAAY Attending Dr: Mela Braden MD Ordering Physician: Mela Pinedo MD Date of Service: 10/04/24 Procedure(s): XR hip RT min 2V Accession Number(s): [id number] cc: Mela Pinedo MD; GUSTAVO GARG NP EXAMINATION: XR HIP, RIGHT CLINICAL INFORMATION: Patient with 3 days of ongoing pain of his right hip. COMPARISON: XR Right hip 09/14/2020 TECHNIQUE: Two views of the right hip. FINDINGS: Mild to moderate right hip osteoarthritis with superolateral and posterior inferior joint space narrowing. Marginal osteophytes, including the femoral head and neck junction anteriorly which may predispose to femoroacetabular impingement. No acute osseous abnormality. No significant change. XR/XR hip RT min 2V IMPRESSION: Mild to moderate right hip osteoarthritis, similar to the previous study. Electronically signed by: Khang Jones MD 11/29/2024 12:07 PM EST Dictated By: Khang Jones MD Signed By: <Electronically signed by Khang Jones MD inOV> 11/29/24 1207 DD/ 1001 TD/TT: 10/04/24 1013 Order Puller: DM us Mela Braden MD IMG XR PROCEDURES Final Result * TSH W/Reflex to FT4 (10/04/2024 10:00 AM EST) TSH reflex Free T4 0.88 0.32 - 4.0 uIU/mL [facility] Blood Venous blood specimen / Unknown 10/04/2024 10:00 AM EST 10/04/2024 10:00 AM EST us Gustavo Garg ANP LAB BLOOD ORDERABLES Final Resul t [facility] [address] [place] [phone] * (ABNORMAL) CBC auto differential (10/04/2024 10:00 AM EST) White Blood Count 10.4 4.8 - 10.8 X10*3/uL [facility] Red Blood Count 4.91 4.60 - 5.80 X10*6/uL [facility] Hemoglobin 13.8(L) 14.0 - 18.0 g/dl [facility] Hematocrit 42.0 42.0 - 52.0 % [facility] Mean Corpuscular Volume 85.5 80.0 - 98.0 fL [facility] Mean Corpuscular Hemoglobin 28.1 27.0 - 33.0 pg [facility] Mean Corpuscular HGB Conc 32.9 31.0 - 36.0 g/dl [facility] Red Cell Distribution Width 14.3 11.0 - 16.0 % [facility] Platelet Count 331 160 - 400 X10*3/uL [facility] Mean Platelet Volume 9.8 9.4 - 12.4 fL [facility] Neutrophils Percent Auto 69.7 45 - 73 % [facility] Imm Gran Pct Auto 0.4 0.0 - 0.4 % [facility] Lymphocytes Percent Auto 20.0 20 - 40 % [facility] Monocytes Percent Auto 6.7 2 - 11 % [facility] Eosinophils Percent Auto 2.4 0 - 4 % [facility] Basophils Percent Auto 0.8 0 - 2 % [facility] NRBC Pct Auto 0.0 0.0 - 0.2 /100WBC [facility] Neutrophils Absolute Auto 7.2 2.0 - 8.3 x10*3/uL [facility] Imm Gran Abs Auto 0.04(H) 0.00 - 0.03 X10*3/uL [facility] Lymphocytes Absolute Auto 2.1 1.2 - 4.9 X10*3/uL [facility] Monocytes Absolute Auto 0.7 0.1 - 1.2 X10*3/uL [facility] Eosinophils Absolute Auto 0.3 0.0 - 0.4 X10*3/uL [facility] Basophils Absolute Auto 0.1 0.0 - 0.2 X10*3/uL [facility] NRBC Abs Auto 0.000 0.0 - 0.012 X10*3/uL [facility] Blood Venous blood specimen / Unknown 10/04/2024 10:00 AM EST 10/04/2024 10:00 AM EST [facility] BLOOD ORDERABLES Final Resul t Performing Organization Address [facility] Co de Phone Number [facility] [address] [place] [phone] * Hepatitis C Antibody with Reflex to HCV, RNA, Quantitative, Real-Time PCR (10/04/2024 10:00 AM EST) Hepatitis C Antibody Nonreactive Nonreactive [facility] Comment:Antibodies to HCV no t detected; does not exclude early acuteHCV infection. Blood Venous blood specimen / Unknown 10/04/2024 10:00 AM EST 10/04/2024 10:00 AM EST Gustavo Garg [facility] LAB BLOOD ORDERABLES Final Resul t Performing Organization Address [facility] de Phone Number [facility] [address] [place] [phone] * RPR (Monitor) with Reflex to??Titer (10/04/2024 10:00 AM EST) RPR (Monitor) w/Refl Titer NON-REACTI VE NON-REACT SENDY [facility] Comment:THIS TEST WAS PERFOR MED AT:[facility] [place] [phone] HERRERA MD Rapid Plasma Reagin Ab Titer TNP [facility] Blood Venous blood specimen / Unknown 10/04/2024 10:00 AM EST 10/04/2024 10:00 AM EST Gustavo Garg [facility] LAB BLOOD ORDERABLES Final Resul t Performing Organization Address [facility]/ZIP Co de Phone Number [facility] [address] [place] [phone] * HIV-1/2 Antigen and Antibodies, Fourth Generation, with Reflexes (10/04/2024 10:00 AM EST) HIV AB/AG Nonreactive Nonreactive [facility] Comment:HIV-1 p24 Ag and/or HIV-1/HIV-2 Ab not detected.A test result that is nonreactive does not exclude thepossibility of exposure to or infection with HIV-1 and/orHIV-2. Nonreactive results in this assay for individualswith prior exposure to HIV-1 and/or HIV-2 may be due toantigen and antibody levels that are below the limit ofdetection of this assay.The [employer] HIV Ag/Ab Combo assay result andsupplemental assay results should be interpreted inconjunction with the patient's clinical presentation,history and other laboratory results. If the results areinconsistent with clinical evidence, additional testing issuggested to confirm the result. Blood Venous blood specimen / Unknown 10/04/2024 10:00 AM EST 10/04/2024 10:00 AM EST Gustavo Garg [facility] LAB BLOOD ORDERABLES Final Resul t Performing Organization Address [facility] Co de Phone Number [facility] [address] [place] [phone] * Hemoglobin A1c (10/04/2024 10:00 AM EST) Hemoglobin A1c 5.6 <6.0 % [facility] Comment:Hemoglobin A1C Refer ence Range Adults: 4.8 - 6.0 % Non diabetic: < 6.0 % Goal: < 7.0 %Additional Action Suggested: > 8.0 %Note: Hemoglobin A1c results are invalid for patients with abnormal amounts of HbF. Blood transfusions may impact the HbA1c concentration in the patient sample. Estimated Average Glucose 114 mg/dL [facility] Comment:eAG = Estimated ave rage glucose which is %A1C expressed asaverage glucose, using the formula of the H9C-YeqmhimAsaqxhz Glucose study (ADAG), Diabetes Care, Vol.31,#8,Jun. 2007 Blood Venous blood specimen / Unknown 10/04/2024 10:00 AM EST 10/04/2024 10:00 AM EST Gustavo Garg ANP LAB BLOOD ORDERABLES Final Resul t Performing Organization Address [facility] de Phone Number [facility] [address] [place] [phone] * (ABNORMAL) Lipid Panel, Standard (10/04/2024 10:00 AM EST) Triglycerides 148 <150 mg/dL [facility] Comment:Desirable Triglyceri de: less than 150 mg/dLBorderline High Triglyceride 150-199 mg/dLHigh Triglyceride: 200-499 mg/dLVery High Triglyceride: greater than or equal to 5OO mg/dL Cholesterol 176 <200 mg/dL [facility] Comment:Desirable Cholestero l: less than 200 mg/dLBorderline High Cholesterol: 200-239 mg/dLHigh Cholesterol: greater than 239 mg/dL LDL Cholesterol Calculated 101(H) <100 mg/dL [facility] Comment:Desirable LDL: less than 100 mg/dLNear Optimal/Above Optimal LDL: 110- 129 mg/dLBorderline High LDL: 130-159 mg/dLHigh LDL: 160-189 mg/dLVery High LDL: greater than or equal to 190 mg/dL HDL Cholesterol 46 >40 mg/dL [facility] Comment:Desirable HDL: great er than 40 mg/dL Note: This HDL assay may give artificially low results in patients with liver disease. Blood Venous blood specimen / Unknown 10/04/2024 10:00 AM EST 10/04/2024 10:00 AM EST Gustavo Garg ANP LAB BLOOD ORDERABLES Final Resul t Performing Organization Address [facility] Co de Phone Number [facility] [address] [place] [phone] * (ABNORMAL) Comprehensive Metabolic Panel (10/04/2024 10:00 AM EST) Sodium 139 135 - 145 mmol/L [facility] Potassium 3.9 3.3 - 5.1 mmol/L [facility] Chloride 111(H) 96 - 108 mmol/L [facility] Carbon Dioxide 24 22 - 29 mmol/L [facility] Anion Gap 8(L) 12 - 20 [facility] Urea Nitrogen (BUN) 13 9 - 16 mg/dL [facility] Creatinine, Serum 0.85 0.5 - 1.4 mg/dL [facility] Estimated Glomerular Filt Rate >60 [facility] Comment:Chronic Kidney Disea se: Estimated GFR < 60 mL/min/1.86z0Andgrx Kidney Disease: Estimated GFR < 15 mL/min/1.73m2 Glucose 104 60 - 115 mg/dL [facility] Calcium 8.9 8.4 - 10.2 mg/dL [facility] Bilirubin, Total 0.8 0.0 - 1.0 mg/dL [facility] Aspartate Amino Transferase 20 5 - 37 U/L [facility] Alanine Aminotransferase 32 0 - 40 U/L [facility] Total Protein 7.4 6.5 - 8.0 g/dL [facility] Albumin Level 4.4 3.5 - 5.0 g/dL [facility] Alkaline Phosphatase 70 39 - 117 U/L [facility] Blood Venous blood specimen / Unknown 10/04/2024 10:00 AM EST 10/04/2024 10:00 AM EST us Gustavo Garg [facility] BLOOD ORDERABLES Final Resul t [facility] [address] [place] [address] [phone] from Last 3 Months Insurance [facility] Care Teams Drop Tester Relationship Specialty Start Date End Date Gustavo Garg ANP [address] [place] [phone] PCP - General Family Medicine 05/01/20
--- OUTSIDE RECORDS SUMMARY | 2024-12-29 14:52 | XMS_ITS | Encounter Summary ---
Author Organization [facility] Address [address] [facility] 7t [place] [address] Care Team Providers Care Post Graduate Intern Name Role Phone Anna Marie [place] Primary Care Provider [phone] Reason for Visit * Reason Onset Date Comments Med Refill 09/05/2024 Encounter Details Date Type Department Care Team ([facility] st Contact Info) Description 09/05/2024 Telephone [facility] MEDICINE [address] [place], [place] [phone] Anna Marie Cameron ANP [address] [place] [address] Med Refill Social History Tobacco Use Types [...] * Telephone Encounter - Giovanni Caballero - 09/05/2024 8:48 AM EDT TC from pt requesting medication refill. Medications needing refill : oxyCODONE (Roxicodone) 5 MG immediate release tablet To be sent to: [facility]/pharmacy #[address] [place] [address] documented in this encounter Plan of Treatment Upcoming Encounters Date Type Department Care Team ([facility] st Contact Info) Description 03/01/2025 2:45 PM EDT Clinical Support [facility] MED & PEDS [address] [place] [address] Jeniffer Busby, JORDAN 505 [place] [address] documented as of this encounter Visit Diagnoses Not on filedocumented in this encounter Additional Health Concerns Assessment Noted Time PHQ-9 Depression Total Score: 0 03/10/20 9:49 AM EDT documented as of this encounter Care Teams Post Graduate Intern Relationship Specialty Start Date End Date Anna Marie [place] ANP [address] [place] [address] PCP - General Family Medicine 05/01/20 documented as of this encounter
--- OUTSIDE RECORDS SUMMARY | 2024-12-29 14:52 | XMS_ITS | Encounter Summary ---
Author Organization [employer] Address 75 [facility] 7t [place] [address] Care Team Providers Care Wrap Yarn Sorter Name Role Phone Anna Marie [place] Primary Care Provider [phone] Reason for Visit * Reason Onset Date Comments Med Refill 09/17/2023 Encounter Details Date Type Department Care Team ([facility] st Contact Info) Description 09/17/2023 Telephone [facility] MEDICINE 230 [place], [place] [phone] Anna Marie [place] ANP 230 [place] [address] Med Refill Social History Tobacco Use Types [...] * Telephone Encounter - Glenn Juarez - 09/17/2023 1:09 PM EDT Tc from pt requesting a refill for oxyCODONE (Roxicodone) 5 MG immediate release tablet documented in this encounter Plan of Treatment Upcoming Encounters Date Type Department Care Team (Late st Contact Info) Description 03/01/2025 2:45 PM EDT Clinical Support [facility] MED & PEDS [address] [place] [address] Jeniffer Busby RN 505 [place] [address] documented as of this encounter Visit Diagnoses Not on filedocumented in this encounter Care Teams Wrap Yarn Sorter Relationship Specialty Start Date End Date Anna Marie Cameron ANP [address] [place] [address] PCP - General Family Medicine 05/01/20 documented as of this encounter
--- OUTSIDE RECORDS SUMMARY | 2024-12-29 14:52 | XMS_ITS | Encounter Summary ---
Author Organization [employer] Address [address] [facility] 7t [place] [address] Care Team Providers Care Gear Repair Supervisor Name Role Phone Anna Marie [place] Primary Care Provider Reason for Visit * Reason Onset Date Comments Med Refill 07/11/2024 Encounter Details Date Type Department Care Team ([facility] st Contact Info) Description 07/11/[address] [facility] MEDICINE [address] [place], [place] [phone] Anna Marie [place] ANP 230 [place] [address] Med Refill Social History Tobacco Use Types [...] * Telephone Encounter - Giovanni Caballero - 07/11/2024 8:27 AM EDT TC from pt requesting medication refill. Medications needing refill : oxyCODONE (Roxicodone) 5 MG immediate release tablet To be sent to: [facility]/pharmacy #[address] [place] [address] documented in this encounter Plan of Treatment Upcoming Encounters Date Type Department Care Team ([facility] st Contact Info) Description 03/01/2025 2:45 PM EDT Clinical Support [facility] MED & PEDS 505 [place] [address] Jeniffer Busby, JORDAN [address] [place] [address] documented as of this encounter Visit Diagnoses Not on filedocumented in this encounter Additional Health Concerns Assessment Noted Time PHQ-9 Depression Total Score: 0 03/10/20 24 9:49 AM EDT documented as of this encounter Care Teams Gear Repair Supervisor Relationship Specialty Start Date End Date Anna Marie [place] ANP [address] [place] [address] PCP - General Family Medicine 05/01/20 documented as of this encounter
--- OUTSIDE RECORDS SUMMARY | 2024-12-29 14:52 | XMS_ITS | Encounter Summary ---
Author Organization [employer] Address [address] [facility] 7t [place] [address] Care Team Providers Care Sql Ssis Developer Name Role Phone Anna Marie [place] Primary Care Provider [phone] Reason for Visit * Reason Onset Date Comments Med Refill 05/17/2024 Encounter Details Date Type Department Care Team ([facility] st Contact Info) Description 05/17/2024 Telephone [facility] MEDICINE 230 [place], [place] [phone] Anna Marie Cameron ANP 230 [place] [address] Med Refill Social History Tobacco Use Types [...] encounter Miscellaneous Notes * Telephone Encounter - Lexi Huffman - 05/17/2024 8:08 AM EDT TC from pt requesting medication refill. Medications needing refill : oxyCODONE (Roxicodone) 5 MG immediate release tablet To be sent to: [facility]/pharmacy #[address] [place] [address] documented in this encounter Plan of Treatment Upcoming Encounters Date Type Department Care Team ([facility] st Contact Info) Description 03/01/2025 2:45 PM EDT Clinical Support [facility] MED & PEDS 505 [place] [address] Jeniffer Busby, JORDAN 505 [place] [address] documented as of this encounter Visit Diagnoses Not on filedocumented in this encounter Additional Health Concerns Assessment Noted Time PHQ-9 Depression Total Score: 0 03/10/20 24 9:49 AM EDT documented as of this encounter Care Teams Sql Ssis Developer Relationship Specialty Start Date End Date Anna Marie [place] ANP [address] [place] [address] PCP - General Family Medicine 05/01/20 documented as of this encounter
--- OUTSIDE RECORDS SUMMARY | 2024-12-29 14:52 | XMS_ITS | Encounter Summary ---
Author Organization [employer] Address 75 [facility] 7t [place] [address] Care Team Providers Care Summer Law Clerk Name Role Phone Anna Marie [place] Primary Care Provider [phone] Reason for Visit * Reason Onset Date Comments Med Refill 05/30/2024 Encounter Details Date Type Department Care Team ([facility] st Contact Info) Description 05/30/2024 Telephone [facility] MEDICINE 230 [place], [place] [phone] Anna Marie [place] ANP 230 [place] [address] Med Refill Social History Tobacco Use Types [...] encounter Miscellaneous Notes * Telephone Encounter - Lxei Huffman - 05/30/2024 8:08 AM EDT TC from pt requesting medication refill. Medications needing refill : oxyCODONE (Roxicodone) 5 MG immediate release tablet To be sent to: [facility]/pharmacy #[address] [place] [address] documented in this encounter Plan of Treatment Upcoming Encounters Date Type Department Care Team ([facility] st Contact Info) Description 03/01/2025 2:45 PM EDT Clinical Support [facility] MED & PEDS 505 [place] [address] Jeniffer Busby, JORDAN 505 [place] [address] documented as of this encounter Visit Diagnoses Not on filedocumented in this encounter Additional Health Concerns Assessment Noted Time PHQ-9 Depression Total Score: 0 03/10/20 24 9:49 AM EDT documented as of this encounter Care Teams Summer Law Clerk Relationship Specialty Start Date End Date Anna Marie Cameron ANP 230 [place] [address] PCP - General Family Medicine 05/01/20 documented as of this encounter
--- OUTSIDE RECORDS SUMMARY | 2024-12-29 14:52 | XMS_ITS | Encounter Summary ---
Author Organization [employer] Address 75 [facility] 7t [place] [address] Care Team Providers Care Licensed Architect Name Role Phone Anna Marie Cameron Primary Care Provider [phone] Reason for Visit * Reason Onset Date Comments Med Refill 10/17/2024 Encounter Details Date Type Department Care Team ([facility] st Contact Info) Description 10/17/2024 Telephone [facility] MEDICINE 230 [place], [place] [phone] Anna Marie Cameron ANP 230 [place] [address] Med Refill Social History Tobacco Use Types [...] * Telephone Encounter - Alaina Pimentel - 10/17/2024 9:05 AM EST TC from pt requesting medication refill. Medications needing refill : oxyCODONE (Roxicodone) 5 MG immediate release tablet To be sent to: [facility]/pharmacy #[address] [place] [address] documented in this encounter Plan of Treatment Upcoming Encounters Date Type Department Care Team ([facility] st Contact Info) Description 03/01/2025 2:45 PM EDT Clinical Support [facility] MED & PEDS 505 [place] [address] Jeniffer Busby, JORDAN 505 [place] [address] documented as of this encounter Visit Diagnoses Not on filedocumented in this encounter Additional Health Concerns Assessment Noted Time PHQ-9 Depression Total Score: 0 03/10/20 24 9:49 AM EDT documented as of this encounter Care Teams Licensed Architect Relationship Specialty Start Date End Date Anna Marie Cameron ANP [address] [place] [address] [place] [address] PCP - General Family Medicine 05/01/20 documented as of this encounter
--- OUTSIDE RECORDS SUMMARY | 2024-12-29 14:52 | XMS_ITS | Encounter Summary ---
Author Organization [employer] Address [address] [facility] [address] 7t [place] [address] Care Team Providers Care Air Crew Officer Name Role Phone Anna Marie Cameron Primary Care Provider [phone] Reason for Visit * Reason Onset Date Comments Med Refill 12/12/2024 Encounter Details Date Type Department Care Team (Late st Contact Info) Description 12/12/2024 Refill [facility] MEDICINE 230 [place], [place] [phone] Anna Marie Cameron ANP 230 [place] [address] Chronic pain of both hips Social History [...] encounter Miscellaneous Notes * Telephone Encounter - Cristina Curry - 12/12/2024 10:17 AM EST TC from pt requesting medication refill. Medications needing refill : oxyCODONE (Roxicodone) 5 MG immediate release tablet To be sent to: [facility]/pharmacy #[id number] [place] [address] documented in this encounter Plan of Treatment Upcoming Encounters Date Type Department Care Team ([facility] st Contact Info) Description 03/01/2025 2:45 PM EDT Clinical Support [facility] MED & PEDS 505 [place] [address] Jeniffer Busby, JORDAN 505 [place] [address] documented as of this encounter Visit Diagnoses Diagnosis Chronic pain of both hips documented in this encounter Additional Health Concerns Assessment Noted Time PHQ-9 Depression Total Score: 0 03/10/20 24 9:49 AM EDT documented as of this encounter Care Teams Air Crew Officer Relationship Specialty Start Date End Date Anna Marie [place] ANP [address] [place] [address] PCP - General Family Medicine 05/01/20 documented as of this encounter
--- OUTSIDE RECORDS SUMMARY | 2024-12-29 14:52 | XMS_ITS | Encounter Summary ---
Author Organization [employer] Address [address] [facility] [address] 7t [place] [address] Care Team Providers Care Secretarial Teacher Name Role Phone Anna Marie [place] Primary Care Provider [phone] Reason for Visit * Reason Comments Med Change Request Encounter Details Date Type Department Care Team ([facility] st Contact Info) Description 12/20/2024 Refill [facility] MEDICINE 230 [place], [place] [phone] Anna Marie Cameron ANP 230 [place] [address] Smoking Social History Tobacco Use Types Packs/Day Years [...] is your housing situation today? I have frnaky wong 03/03/[address] you [...] encounter Miscellaneous Notes * Telephone Encounter - SHILA Cordoba - 12/21/2024 12:21 PM EST Refill not yet due - I spoke w/ pt and he will start med this weekend and will check back to see ifhaving side effects, etc. Will plan for 90d rx if tolerating. documented in this encounter Plan of Treatment Upcoming Encounters Date Type Department Care Team (Late st Contact Info) Description 03/01/2025 2:45 PM EDT Clinical Support [facility] MED & PEDS [address] [place] [address] Jeniffer Busby, JORDAN 505 [place] [address] documented as of this encounter Visit Diagnoses Diagnosis Smoking Tobacco use disorder documented in this encounter Additional Health Concerns Assessment Noted Time PHQ-9 Depression Total Score: 0 03/10/20 24 9:49 AM EDT documented as of this encounter Care Teams Secretarial Teacher Relationship Specialty Start Date End Date Anna Marie Cameron ANP [address] [place] [address] PCP - General Family Medicine 05/01/20 documented as of this encounter
--- OUTSIDE RECORDS SUMMARY | 2024-12-29 14:53 | XMS_ITS | Encounter Summary ---
Author Organization [employer] Address 75 [facility] 7t [place] [address] Care Team Providers Care Credit Card Interviewer Name Role Phone Anna Marie Cameron Primary Care Provider [phone] Reason for Visit * Reason Onset Date Comments Med Refill 09/19/2024 Encounter Details Date Type Department Care Team ([facility] st Contact Info) Description 09/19/2024 Telephone [facility] MEDICINE 230 [place], [place] [phone] Anna Marie [place] ANP [address] [place] [address] Med Refill Social History Tobacco Use Types [...] encounter Miscellaneous Notes * Telephone Encounter - Chris Love - 09/19/2024 9:17 AM EST TC from pt requesting medication refill. Medications needing refill: oxyCODONE (Roxicodone) 5 MG immediate release tablet To be sent to: [facility]/pharmacy #[id number] [place] [address] documented in this encounter Plan of Treatment Upcoming Encounters Date Type Department Care Team ([facility] st Contact Info) Description 03/01/2025 2:45 PM EDT Clinical Support [facility] MED & PEDS 505 [place] [address] Jeniffer Busby, JORDAN 505 [place] [address] documented as of this encounter Visit Diagnoses Not on filedocumented in this encounter Additional Health Concerns Assessment Noted Time PHQ-9 Depression Total Score: 0 03/10/20 24 9:49 AM EDT documented as of this encounter Care Teams Credit Card Interviewer Relationship Specialty Start Date End Date Anna Marie [place] ANP [address] [place] [address] PCP - General Family Medicine 05/01/20 documented as of this encounter
--- OUTSIDE RECORDS SUMMARY | 2024-12-29 14:53 | XMS_ITS | Encounter Summary ---
Author Organization [employer] Address 75 [facility] 7t [place] [address] Care Team Providers Care Auto Body Repairer Name Role Phone Anna Marie Cameron Primary Care Provider [phone] Reason for Visit * Reason Onset Date Comments Med Refill 07/17/2023 Encounter Details Date Type Department Care Team ([facility] st Contact Info) Description 07/17/2023 Telephone [facility] MEDICINE 230 [place] [address] Anna Marie Cameron ANP [address] [place] [address] Med Refill Social History Tobacco Use Types [...] encounter Miscellaneous Notes * Telephone Encounter - Lissy Alexsander - 07/17/2023 4:24 PM EDT Tc from pt requesting medication refill on oxyCODONE (Roxicodone) 5 MG immediate release tablet. States pt spoke with PCP in regards to medication change from every week to every two weeks for refillrequest. documented in this encounter Plan of Treatment Upcoming Encounters Date Type Department Care Team ([facility] st Contact Info) Description 03/01/2025 2:45 PM EDT Clinical Support [facility] & PEDS [address] [place] [address] Jeniffer Busby, JORDAN 505 [place] [address] documented as of this encounter Visit Diagnoses Not on filedocumented in this encounter Care Teams Auto Body Repairer Relationship Specialty Start Date End Date Anna Marie [place] ANP [address] [place] [address] PCP - General Family Medicine 05/01/20 documented as of this encounter
--- OUTSIDE RECORDS SUMMARY | 2024-12-29 14:53 | XMS_ITS | Encounter Summary ---
Author Organization [employer] Address 75 [facility] 7t [place] [address] Care Team Providers Care Air Defense Control Officer Name Role Phone Anna Marie [place] Primary Care Provider [phone] Reason for Visit * Reason Onset Date Comments Med Refill 08/20/2023 Encounter Details Date Type Department Care Team ([facility] st Contact Info) Description 08/20/2023 Telephone [facility] MEDICINE 230 [place] [address] Anna Marie [place] ANP 230 [place] [address] Med Refill Social History Tobacco Use Types [...] * Telephone Encounter - Lissy Alexsander - 08/20/2023 10:03 AM EDT Tc from pt requesting medication refill on oxyCODONE (Roxicodone) 5 MG immediate release tablet to be sent to [facility]/pharmacy #[id number] - [place] - [address] [facility] documented in this encounter Plan of Treatment Upcoming Encounters Date Type Department Care Team ([facility] st Contact Info) Description 03/01/2025 2:45 PM EDT Clinical Support [facility] MED & PEDS [address] [place] [address] Jeniffer Busby, RN 505 [place] [address] documented as of this encounter Visit Diagnoses Not on filedocumented in this encounter Care Teams Air Defense Control Officer Relationship Specialty Start Date End Date Anna Marie Cameron ANP [address] [place] [address] PCP - General Family Medicine 05/01/20 documented as of this encounter
--- OUTSIDE RECORDS SUMMARY | 2024-12-29 14:53 | XMS_ITS | Encounter Summary ---
Author Organization [employer] Address 75 [facility] 7t [place] [address] Care Team Providers Care Grievance And Appeals Specialist Name Role Phone Anna Marie Cameron Primary Care Provider [phone] Reason for Visit * Reason Onset Date Comments Med Refill 10/02/2023 Encounter Details Date Type Department Care Team ([facility] st Contact Info) Description 10/02/2023 Telephone [facility] MEDICINE 230 [place] [address] Anna Marie Cameron ANP 230 [place] [address] Med Refill Social History Tobacco Use Types [...] * Telephone Encounter - Lissy Alexsander - 10/02/2023 9:01 AM EST Tc from pt requesting medication refill on oxyCODONE (Roxicodone) 5 MG immediate release tablet to be sent to [facility]/pharmacy #[id number] [place], [place] - [address] [facility] documented in this encounter Plan of Treatment Upcoming Encounters Date Type Department Care Team (Late st Contact Info) Description 03/01/2025 2:45 PM EDT Clinical Support [facility] MED & PEDS [address] [place] [address] Jeniffer Busby, RN 505 [place] [address] documented as of this encounter Visit Diagnoses Not on filedocumented in this encounter Care Teams Grievance And Appeals Specialist Relationship Specialty Start Date End Date Anna Marie Cameron ANP 230 [place] [address] PCP - General Family Medicine 05/01/20 documented as of this encounter
== END ==
LOC: HO.CARD 14:49
PROVIDERS: PCP Nurse Practitioner Primary Care; Visit Provider Internal Medicine Cardiovascular Disease
DX: R06.09 Other forms of dyspnea (principal)
CPT/HCPCS: 93306

== ENCOUNTER → 2024-12-29 14:52 | Outpatient (BNV) | payer OTHER, SELFPAY | PROVIDERS: PCP Nurse Practitioner Primary Care; Visit Provider Internal Medicine Cardiovascular Disease | DX: R06.09 Other forms of dyspnea (principal) | CPT/HCPCS: 93306; 93356 ==

== ENCOUNTER → 2025-01-31 07:51 | Outpatient (REF) | payer OTHER, SELFPAY ==
--- NOTE | 2025-01-31 07:54 | CA_ITS ---
Acquisition Time: 2025-01-31 08:28:44 Total Exercise Time: 00:09:20 Test Indications: CP, SOB, ABN EKG Medications: SEE H&P Protocol: KIM Max HR: 151 BPM 87% of Pred: 173 BPM Max BP: 190/94 mmHG Max Work Load: 10.6 METS Exercise stress tets with exercise 9 mins 20 secs of Kim Protocol, achieving 85% MPHR, with rerpots of SOB, no chest discomfort, with 6 beats of PVCs- asymptomatic, with normotensive respnse to exercise. Without EKG changes meeting criteria for ischemia. In recovery, breathing returned to baseline. Pt refused nuclear imaging due to claustrophobia. States wont be able to even if medicated. Dr. Trinidad made aware. Will do a 7 day holter to further evaluate the VT. Referred By: Florencio Trinidad Electronically Signed By: Sampson Motley
--- OUTSIDE RECORDS SUMMARY | 2025-01-31 07:54 | XMS_ITS | Encounter Summary ---
Author Organization [employer] Address 75 [facility] 7t [place] [address] Care Team Providers Care Cleaner Carpet And Upholstery Name Role Phone Anna Marie Cameron SHILA Primary Care Provider [phone] Reason for Visit * Reason Onset Date Comments Med Refill 01/23/2025 Encounter Details Date Type Department Care Team ([facility] st Contact Info) Description 01/23/2025 Refill [facility] MED & PEDS 505 [place] [address] Jeniffer Busby, JORDAN 505 [place] [address] Chronic pain of both hips Social History [...] AM EDT documented as of this encounter Plan of Treatment Upcoming Encounters Date Type Department Care Team (Late st Contact Info) Description 03/01/2025 2:45 PM EDT Clinical Support [facility] MED & PEDS [address] [place] [address] Jeniffer Busby, JORDAN 505 [place] [address] 03/23/2025 9:30 AM EDT Office Visit [facility] MEDICINE [address] [place] [phone] Anna Marie Cameron ANP 230 [place] [address] documented as of this encounter Visit Diagnoses Diagnosis Chronic pain of both hips documented in this encounter Additional Health Concerns Assessment Noted Time PHQ-9 Depression Total Score: 0 03/10/20 24 9:49 AM EDT documented as of this encounter Care Teams Cleaner Carpet And Upholstery Relationship Specialty Start Date End Date Anna Marie Cameron ANP [address] [place] [address] PCP - General Family Medicine 05/01/20 documented as of this encounter
--- OUTSIDE RECORDS SUMMARY | 2025-01-31 07:54 | XMS_ITS | Encounter Summary ---
Author Organization [employer] Address 75 [facility] 7t [place] [address] Care Team Providers Care Theoretical Physics Teacher Name Role Phone Anna Marie Cameron Primary Care Provider [phone] Reason for Visit * Reason Onset Date Comments Med Refill 07/11/2024 Encounter Details Date Type Department Care Team ([facility] st Contact Info) Description 07/11/2024 Telephone [facility] MEDICINE 230 [place], [place] [phone] Anna Marie Cameron ANP 230 [place], [place] [phone] Med Refill Social History Tobacco Use Types [...] the past 12 months, has t he [employer], gas, oil or water company threatened to [...] Miscellaneous Notes * Telephone Encounter - Giovanni Caballreo - 07/11/2024 8:27 AM EDT TC from pt requesting medication refill. Medications needing refill : oxyCODONE (Roxicodone) 5 MG immediate release tablet To be sent to: [facility]/pharmacy #[id number] [place] [address] documented in this encounter Plan of Treatment Upcoming Encounters Date Type Department Care Team (Late st Contact Info) Description 03/01/2025 2:45 PM EDT Clinical Support [facility] MED & PEDS 505 [place] [address] Jeniffer Busby, JORDAN 505 [place] [address] 03/23/2025 9:30 AM EDT Office Visit [facility] MEDICINE 230 [place] [address] Anna Marie Cameron ANP 230 [place] [address] documented as of this encounter Visit Diagnoses Not on filedocumented in this encounter Additional Health Concerns Assessment Noted Time PHQ-9 Depression Total Score: 0 03/10/20 24 9:49 AM EDT documented as of this encounter Care Teams Theoretical Physics Teacher Relationship Specialty Start Date End Date Anna Marie Cameron ANP 230 [place] [address] PCP - General Family Medicine 05/01/20 documented as of this encounter
--- OUTSIDE RECORDS SUMMARY | 2025-01-31 07:54 | XMS_ITS | Encounter Summary ---
Author Organization [employer] Address 75 [facility] 7t [place] [address] Care Team Providers Care Rental Sales Associate Name Role Phone Anna Marie Cameron Primary Care Provider [phone] Reason for Visit * Reason Onset Date Comments Med Refill 01/23/2025 Encounter Details Date Type Department Care Team ([facility] st Contact Info) Description 01/23/2025 Telephone [facility] MEDICINE 230 [place], [place] [phone] Anna Marie Cameron ANP 230 [place] [address] Med Refill Social History Tobacco Use Types [...] the past 12 months, has t he [employer], gas, oil or water company threatened to [...] * Telephone Encounter - Cristina Curry - 01/23/2025 8:36 AM EDT TC from pt requesting medication refill. Medications needing refill : oxyCODONE (Roxicodone) 5 MG immediate release tablet To be sent to: [facility]/pharmacy #[id number] [place] [address] - [address] [place] [address] documented in this encounter Plan of Treatment Upcoming Encounters Date Type Department Care Team (Late st Contact Info) Description 03/01/2025 2:45 PM EDT Clinical Support [facility] MED & PEDS 505 [place] [address] Jeniffer Busby, JORDAN 505 [place] [address] 03/23/2025 9:30 AM EDT Office Visit [facility] MEDICINE 230 [place] [address] Anna Marie Cameron, ANP 230 [place] [address] documented as of this encounter Visit Diagnoses Not on filedocumented in this encounter Additional Health Concerns Assessment Noted Time PHQ-9 Depression Total Score: 0 03/10/20 24 9:49 AM EDT documented as of this encounter Care Teams Rental Sales Associate Relationship Specialty Start Date End Date Anna Marie Cameron ANP 230 [place] [address] PCP - General Family Medicine 05/01/20 documented as of this encounter
--- OUTSIDE RECORDS SUMMARY | 2025-01-31 07:54 | XMS_ITS | Encounter Summary ---
Author Organization [employer] Address 75 [facility] 7t [place] [address] Care Team Providers Care Deck Engine Operator Name Role Phone Anna Marie Cameron Primary Care Provider [phone] Reason for Visit * Reason Onset Date Comments Med Refill 06/27/2024 Encounter Details Date Type Department Care Team ([facility] st Contact Info) Description 06/27/2024 Telephone [facility] MEDICINE 230 [place], [place] [phone] Anna Marie Cameron ANP 230 [place] [address] Med Refill Social History Tobacco Use Types [...] the past 12 months, has t he [employer], gas, oil or water company threatened to [...] Description 03/01/2025 2:45 PM EDT Clinical Support [facility] MED & PEDS 505 [place] [address] Jeniffer Busby, RN 505 [place] [address] 03/23/2025 9:30 AM EDT Office Visit [facility] MEDICINE 230 [place] [address] Anna Marie Cameron ANP [address] [place] [address] documented as of this encounter Visit Diagnoses Not on filedocumented in this encounter Additional Health Concerns Assessment Noted Time PHQ-9 Depression Total Score: 0 03/10/20 24 9:49 AM EDT documented as of this encounter Care Teams Deck Engine Operator Relationship Specialty Start Date End Date Anna Marie Cameron ANP 230 [place] [address] PCP - General Family Medicine 05/01/20 documented as of this encounter
--- OUTSIDE RECORDS SUMMARY | 2025-01-31 07:54 | XMS_ITS | Encounter Summary ---
Author Organization [employer] Address 75 [facility] 7t [place] [address] Care Team Providers Care Dining Room Captain Name Role Phone Anna Marie Cameron Primary Care Provider [phone] Reason for Visit * Reason Onset Date Comments Med Refill 05/30/2024 Encounter Details Date Type Department Care Team ([facility] st Contact Info) Description 05/30/2024 Telephone [facility] MEDICINE 230 [place], [place] [phone] Anna Marie Cameron ANP 230 [place] [address] Med Refill Social History Tobacco Use Types [...] the past 12 months, has t he [employer], gas, oil or water company threatened to [...] * Telephone Encounter - Lexi Huffman - 05/30/2024 8:08 AM EDT TC from pt requesting medication refill. Medications needing refill : oxyCODONE (Roxicodone) 5 MG immediate release tablet To be sent to: [facility]/pharmacy #[id number] [place] [address] - [address] [place] [address] documented in this encounter Plan of Treatment Upcoming Encounters Date Type Department Care Team (Late st Contact Info) Description 03/01/2025 2:45 PM EDT Clinical Support [facility] MED & PEDS 505 [place] [address] Jeniffer Busby, JORDAN 505 [place] [address] 03/23/2025 9:30 AM EDT Office Visit [facility] MEDICINE 230 [place] [address] Anna Marie Cameron ANP [address] [place] [address] documented as of this encounter Visit Diagnoses Not on filedocumented in this encounter Additional Health Concerns Assessment Noted Time PHQ-9 Depression Total Score: 0 03/10/20 24 9:49 AM EDT documented as of this encounter Care Teams Dining Room Captain Relationship Specialty Start Date End Date Anna Marie Cameron ANP 230 [place] [address] PCP - General Family Medicine 05/01/20 documented as of this encounter
--- OUTSIDE RECORDS SUMMARY | 2025-01-31 07:54 | XMS_ITS | Encounter Summary ---
Author Organization [employer] Address 75 [facility] 7t [place] [address] Care Team Providers Care Desizing Machine Back Tender Name Role Phone Anna Marie Cameron Primary Care Provider [phone] Reason for Visit * Reason Onset Date Comments Med Refill 05/17/2024 Encounter Details Date Type Department Care Team ([facility] st Contact Info) Description 05/17/2024 Telephone [facility] MEDICINE 230 [place], [place] [phone] Anna Marie Cameron ANP [address] [place] [address] Med Refill Social History Tobacco Use Types [...] the past 12 months, has t he [employer], gas, oil or water company threatened to [...] immediate release tablet To be sent to: [facility]/pharmacy #[id number] [place] [address] - [address] [place] [address] documented in this encounter Plan of Treatment Upcoming Encounters Date Type Department Care Team (Late st Contact Info) Description 03/01/2025 2:45 PM EDT Clinical Support [facility] CH[facility] MED & PEDS 505 [place] [address] Jeniffer Busby, JORDAN 505 [place] [address] 03/23/2025 9:30 AM EDT Office Visit [facility] MEDICINE 230 [place] [address] Anna Marie Cameron ANP 230 [place] [address] documented as of this encounter Visit Diagnoses Not on filedocumented in this encounter Additional Health Concerns Assessment Noted Time PHQ-9 Depression Total Score: 0 03/10/20 24 9:49 AM EDT documented as of this encounter Care Teams Desizing Machine Back Tender Relationship Specialty Start Date End Date Anna Marie Cameron ANP 230 [place] [address] PCP - General Family Medicine 05/01/20 documented as of this encounter
--- OUTSIDE RECORDS SUMMARY | 2025-01-31 07:54 | XMS_ITS | Encounter Summary ---
Author Organization [employer] Address 75 [facility] 7t [place] [address] Care Team Providers Care Meteorological Equipment Repairer Name Role Phone Anna Marie Cameron Primary Care Provider [phone] Reason for Visit * Reason Onset Date Comments Med Refill 06/13/2024 Encounter Details Date Type Department Care Team ([facility] st Contact Info) Description 06/13/2024 Telephone [facility] MEDICINE 230 [place], [place] [phone] Anna Marie Cameron ANP 230 [place], [place] [phone] Med Refill Social History Tobacco Use Types [...] the past 12 months, has t he [employer], gas, oil or water company threatened to [...] immediate release tablet To be sent to: [facility]/pharmacy #[id number] [place] [address] documented in this encounter Plan of Treatment Upcoming Encounters Date Type Department Care Team (Late st Contact Info) Description 03/01/2025 2:45 PM EDT Clinical Support [facility] MED & PEDS [address] [place] [address] Jeniffer Busby, JORDAN 505 [place] [address] 03/23/2025 9:30 AM EDT Office Visit [facility] MEDICINE [address] [place] [address] Anna Marie Cameron ANP 230 [place] [address] documented as of this encounter Visit Diagnoses Not on filedocumented in this encounter Additional Health Concerns Assessment Noted Time PHQ-9 Depression Total Score: 0 03/10/20 24 9:49 AM EDT documented as of this encounter Care Teams Meteorological Equipment Repairer Relationship Specialty Start Date End Date Anna Marie Cameron ANP 230 [place] [address] PCP - General Family Medicine 05/01/20 documented as of this encounter
--- OUTSIDE RECORDS SUMMARY | 2025-01-31 07:54 | XMS_ITS | Encounter Summary ---
Author Organization [employer] Address 75 [facility] 7t [place] [address] Care Team Providers Care Drag Sawyer Name Role Phone Anna Marie Cameron Primary Care Provider [phone] Reason for Visit * Reason Onset Date Comments Med Refill 03/13/2023 Encounter Details Date Type Department Care Team ([facility] Contact Info) Description 03/13/2023 Telephone [facility] MEDICINE 230 [place] [address] Anna Marie Cameron ANP 230 [place] [address] Med Refill Social History Tobacco Use Types [...] Upcoming Encounters Date Type Department Care Team ([facility] st Contact Info) Description 03/01/2025 2:45 PM EDT Clinical Support [facility] CH[facility] MED & PEDS 505 [place] [address] Jeniffer Busby, RN 505 [place], [place] 03/23/2025 9:30 AM EDT Office Visit [facility] MEDICINE [address] [place] [address] Anna Marie Cameron ANP [address] [place] [address] documented as of this encounter Visit Diagnoses Not on filedocumented in this encounter Care Teams Drag Sawyer Relationship Specialty Start Date End Date Anna Marie Cameron ANP [address] [place] [address] PCP - General Family Medicine 05/01/20 documented as of this encounter
--- OUTSIDE RECORDS SUMMARY | 2025-01-31 07:55 | XMS_ITS | Clinical Summary ---
Author Organization 175 [facility] Address [address] [place] [address] Phone Care Team Providers Care Scraper Meat Name Role Phone Anna Marie Cameron NP Primary Care Provider [phone] Social History Tobacco Use Types Packs/Day Years Used Date Smoking Tobacco: Never Assessed Sex and Gender Information Value Date Recorded Sex Assigned at Not on file Legal Sex Male 2:05 PM EST Gender Identity Not on file Sexual Orientation Not on file Plan of Treatment Upcoming Encounters Date Type Department Care Team ([facility] Contact Info) Description 03/08/2025 3:15 PM EDT Consult Orthopedic Surgery - [place] [address] [id number] Buck Maldonado, DPM [address] [address] Health Maintenance Due Date Last Done Comments DTaP,Tdap,and Td Vaccines (1 - Tdap) 02/25/1996 Hepatitis B Vaccines (1 of 3 - 19+ 3-dose series) 02/25/1996 COVID-19 Vaccine (2023-2 5 season) 2024 Influenza Vaccine (#1) 2024 Cholesterol Screening (Lipid Panel) 01/03/2025 Colorectal Cancer Screening: Colonoscopy 01/03/2025 Depression Screening 01/03/2025 HIV Screening 01/03/2025 Hepatitis C Screening 01/03/2025 Social Influencers of Health Screening 01/03/2025 HIB Vaccines Aged Out No longer eligi ble based on patient's age to complete this topic HPV Vaccines Aged Out No longer eligi ble based on patient's age to complete this topic Hepatitis A Vaccines Aged Out No long er eligible based on patient's age to complete this topic IPV Vaccines Aged Out No longer eligi ble based on patient's age to complete this topic MMR Vaccines Aged Out No longer eligi ble based on patient's age to complete this topic Meningococcal ACWY Vaccine Aged Out N o longer eligible based on patient's age to complete this topic Meningococcal B Vacine Aged Out No lo nger eligible based on patient's age to complete this topic Pneumococcal Vaccine: Pediat rics (0 to 5 Years) and At-Risk Patients (6 to 64 Years) Aged Out No longer eligible b ased on patient's age to complete this topic RSV Immunization Patients Un ramin 20 months Aged Out No longer eligible b ased on patient's age to complete this topic Varicella Vaccines Aged Out No longer eligible based on patient's age to complete this topic Insurance , [address] [place] [id number] [place] [address] PUBLIC PLANS Care Teams Scraper Meat Relationship Specialty Start Date End Date Anna Marie Cameron NP [address] [place] [phone] PCP - General 01/03/25
--- OUTSIDE RECORDS SUMMARY | 2025-01-31 07:55 | XMS_ITS | Encounter Summary ---
Author Organization [employer] Address 75 [facility] 7t [place] [address] Care Team Providers Care Cardiology Teacher Name Role Phone Anna Marie Cameron Primary Care Provider [phone] Reason for Visit * Reason Onset Date Comments Med Refill 08/22/2024 Encounter Details Date Type Department Care Team ([facility] st Contact Info) Description 08/22/2024 Telephone [facility] MEDICINE 230 [place], [place] [phone] Anna Marie Cameron ANP 230 [place] [address] Med Refill Social History Tobacco Use Types [...] the past 12 months, has t he [employer], gas, oil or water company threatened to [...] immediate release tablet To be sent to: [facility]/pharmacy #[id number] [place] [address] documented in this encounter Plan of Treatment Upcoming Encounters Date Type Department Care Team (Late st Contact Info) Description 03/01/2025 2:45 PM EDT Clinical Support [facility] CH[facility] MED & PEDS [address] [place] [address] Jeniffer Busby, JORDAN 505 [place] [address] 03/23/2025 9:30 AM EDT Office Visit [facility] MEDICINE 230 [place] [address] Anna Marie Cameron ANP 230 [place] [address] documented as of this encounter Visit Diagnoses Not on filedocumented in this encounter Additional Health Concerns Assessment Noted Time PHQ-9 Depression Total Score: 0 03/10/20 24 9:49 AM EDT documented as of this encounter Care Teams Cardiology Teacher Relationship Specialty Start Date End Date Anna Marie Cameron ANP 230 [place] [address] PCP - General Family Medicine 05/01/20 documented as of this encounter
--- OUTSIDE RECORDS SUMMARY | 2025-01-31 07:55 | XMS_ITS | Encounter Summary ---
Author Organization [employer] Address 75 [facility] 7t [place] [address] Care Team Providers Care Solar Sales Rep Name Role Phone Anna Marie Cameron Primary Care Provider [phone] Reason for Visit * Reason Onset Date Comments Med Refill 07/25/2024 Encounter Details Date Type Department Care Team ([facility] st Contact Info) Description 07/25/2024 Telephone [facility] MEDICINE 230 [place], [place] [phone] Anna Marie Cameron ANP 230 [place], [place] [phone] Med Refill Social History Tobacco Use Types [...] the past 12 months, has t he [employer], gas, oil or water company threatened to [...] immediate release tablet To be sent to: [facility]/pharmacy #[id number] [place] [address] documented in this encounter Plan of Treatment Upcoming Encounters Date Type Department Care Team (Late st Contact Info) Description 03/01/2025 2:45 PM EDT Clinical Support [facility] MED & PEDS 505 [place] [address] Jeniffer Busby, JORDAN 505 [place] [address] 03/23/2025 9:30 AM EDT Office Visit [facility] MEDICINE 230 [place] [address] Anna Marie Cameron ANP 230 [place] [address] documented as of this encounter Visit Diagnoses Not on filedocumented in this encounter Additional Health Concerns Assessment Noted Time PHQ-9 Depression Total Score: 0 03/10/20 24 9:49 AM EDT documented as of this encounter Care Teams Solar Sales Rep Relationship Specialty Start Date End Date Anna Marie Cameron ANP 230 [place] [address] PCP - General Family Medicine 05/01/20 documented as of this encounter
--- OUTSIDE RECORDS SUMMARY | 2025-01-31 07:55 | XMS_ITS | Encounter Summary ---
Author Organization [employer] Address 75 [facility] 7t [place] [address] Care Team Providers Care Consulting Nurse Name Role Phone Anna Marie Cameron Primary Care Provider [phone] Reason for Visit * Reason Onset Date Comments Med Refill 09/19/2024 Encounter Details Date Type Department Care Team ([facility] st Contact Info) Description 09/19/2024 Telephone [facility] MEDICINE 230 [place], [place] [phone] Anna Marie Cameron ANP [address] [place] [address] Med Refill Social History Tobacco Use Types [...] the past 12 months, has t he [employer], gas, oil or water company threatened to [...] immediate release tablet To be sent to: [facility]/pharmacy #[id number] [place] [address] documented in this encounter Plan of Treatment Upcoming Encounters Date Type Department Care Team (Late st Contact Info) Description 03/01/2025 2:45 PM EDT Clinical Support [facility] MED & PEDS 505 [place] [address] Jeniffer Busby, JORDAN 505 [place] [address] 03/23/2025 9:30 AM EDT Office Visit [facility] MEDICINE [address] [place] [address] Anna Marie Cameron ANP [address] [place] [address] documented as of this encounter Visit Diagnoses Not on filedocumented in this encounter Additional Health Concerns Assessment Noted Time PHQ-9 Depression Total Score: 0 03/10/20 24 9:49 AM EDT documented as of this encounter Care Teams Consulting Nurse Relationship Specialty Start Date End Date Anna Marie Cameron ANP 230 [place] [address] PCP - General Family Medicine 05/01/20 documented as of this encounter
--- OUTSIDE RECORDS SUMMARY | 2025-01-31 07:55 | XMS_ITS | Encounter Summary ---
Author Organization [employer] Address 75 [facility] 7t [place] [address] Care Team Providers Care Home Aide Name Role Phone Anna Marie Cameron Primary Care Provider [phone] Reason for Visit * Reason Onset Date Comments Med Refill 08/20/2023 Encounter Details Date Type Department Care Team ([facility] [place] st Contact Info) Description 08/20/2023 Telephone [facility] 230 [place] [address] Anna Marie Cameron ANP 230 [place] [address] Med Refill Social History Tobacco Use Types [...] immediate release tablet to be sent to [facility]/pharmacy #[id number] [place], [place] - [address] [facility] documented in this encounter Plan of Treatment Upcoming Encounters Date Type Department Care Team ([facility] [place] st Contact Info) Description 03/01/2025 2:45 PM EDT Clinical Support [facility] & PEDS 505 [place] [address] Jeniffer Busby, RN 505 [place] [address] 03/23/2025 9:30 AM EDT Office Visit [facility] MED[facility]INE 230 [place] [address] Anna Marie Cameron ANP 230 [place] [address] documented as of this encounter Visit Diagnoses Not on filedocumented in this encounter Care Teams Home Aide Relationship Specialty Start Date End Date Anna Marie Cameron ANP [address] [place] [address] PCP - General Family Medicine 05/01/20 documented as of this encounter
--- OUTSIDE RECORDS SUMMARY | 2025-01-31 07:55 | XMS_ITS | Encounter Summary ---
Author Organization [employer] Address 75 [facility] 7t [place] [address] Care Team Providers Care Licensed Land Surveyor Name Role Phone Anna Marie Cameron Primary Care Provider Reason for Visit * Reason Onset Date Comments Med Refill 10/17/2024 Encounter Details Date Type Department Care Team ([facility] st Contact Info) Description 10/17/[address] [facility] MEDICINE 230 [place], [place] [phone] Anna Marie Cameron ANP 230 [place] [address] Med Refill Social History Tobacco Use Types [...] the past 12 months, has t he [employer], gas, oil or water company threatened to [...] immediate release tablet To be sent to: [facility]/pharmacy #[id number] [place] [address] documented in this encounter Plan of Treatment Upcoming Encounters Date Type Department Care Team (Late st Contact Info) Description 03/01/2025 2:45 PM EDT Clinical Support [facility] CHC MED & PEDS 505 [place] [address] Jeniffer Busby, JORDAN 505 [place] [address] 03/23/2025 9:30 AM EDT Office Visit [facility] MEDICINE 230 [place] [address] Anna Marie Cameron ANP 230 [place] [address] documented as of this encounter Visit Diagnoses Not on filedocumented in this encounter Additional Health Concerns Assessment Noted Time PHQ-9 Depression Total Score: 0 03/10/20 24 9:49 AM EDT documented as of this encounter Care Teams Licensed Land Surveyor Relationship Specialty Start Date End Date Anna Marie Cameron ANP 230 [place] [address] PCP - General Family Medicine 05/01/20 documented as of this encounter
--- OUTSIDE RECORDS SUMMARY | 2025-01-31 07:55 | XMS_ITS | Encounter Summary ---
Author Organization [employer] Address 75 [facility] 7t [place] [address] Care Team Providers Care Unix Architect Name Role Phone Anna Marie Cameron Primary Care Provider [phone] Reason for Visit * Reason Onset Date Comments Med Refill 09/05/2024 Encounter Details Date Type Department Care Team ([facility] st Contact Info) Description 09/05/2024 Telephone [facility] MEDICINE 230 [place], [place] [phone] Anna Marie Cameron ANP 230 [place] [address] Med Refill Social History Tobacco Use Types [...] the past 12 months, has t he [employer], gas, oil or water company threatened to [...] immediate release tablet To be sent to: [facility]/pharmacy #[id number] [place] [address] - [address] [place] [address] documented in this encounter Plan of Treatment Upcoming Encounters Date Type Department Care Team (Late st Contact Info) Description 03/01/2025 2:45 PM EDT Clinical Support [facility] CHC MED & PEDS 505 [place] [address] Jeniffer Busby, JORDAN 505 [place] [address] 03/23/2025 9:30 AM EDT Office Visit [facility] MEDICINE 230 [place] [address] Anna Marie Cameron ANP 230 [place] [address] documented as of this encounter Visit Diagnoses Not on filedocumented in this encounter Additional Health Concerns Assessment Noted Time PHQ-9 Depression Total Score: 0 03/10/20 24 9:49 AM EDT documented as of this encounter Care Teams Unix Architect Relationship Specialty Start Date End Date Anna Marie Cameron ANP 230 [place] [address] PCP - General Family Medicine 05/01/20 documented as of this encounter
--- OUTSIDE RECORDS SUMMARY | 2025-01-31 07:55 | XMS_ITS | Encounter Summary ---
Author Organization [employer] Address 75 [facility] 7t [place] [address] Care Team Providers Care Chief Pilot Name Role Phone Anna Marie Cameron Primary Care Provider [phone] Reason for Visit * Reason Onset Date Comments Med Refill 01/09/2025 Encounter Details Date Type Department Care Team ([facility] st Contact Info) Description 01/09/2025 Telephone [facility] MEDICINE 230 [place], [place] [phone] Anna Marie Cameron ANP 230 [place] [address] Med Refill Social History Tobacco Use Types [...] the past 12 months, has t he [employer], gas, oil or water company threatened to [...] encounter Miscellaneous Notes * Telephone Encounter - Shad Olivera - 01/09/2025 8:35 AM EST TC from pt requesting medication refill. Medications needing refill : oxyCODONE (Roxicodone) 5 MG immediate release tablet To be sent to: [facility]/pharmacy #[id number] [place] [address] documented in this encounter Plan of Treatment Upcoming Encounters Date Type Department Care Team (Late st Contact Info) Description 03/01/2025 2:45 PM EDT Clinical Support [facility] CHC MED & PEDS 505 [place] [address] Jeniffer Busby, JORDAN 505 [place] [address] 03/23/2025 9:30 AM EDT Office Visit [facility] MEDICINE 230 [place] [address] Anna Marie Cameron ANP 230 [place] [address] documented as of this encounter Visit Diagnoses Not on filedocumented in this encounter Additional Health Concerns Assessment Noted Time PHQ-9 Depression Total Score: 0 03/10/20 24 9:49 AM EDT documented as of this encounter Care Teams Chief Pilot Relationship Specialty Start Date End Date Anna Marie Cameron ANP 230 [place] [address] PCP - General Family Medicine 05/01/20 documented as of this encounter
--- OUTSIDE RECORDS SUMMARY | 2025-01-31 07:55 | XMS_ITS | Encounter Summary ---
Author Organization [employer] Address 75 [facility] 7t [place] [address] Care Team Providers Care Special Shopper Name Role Phone Anna Marie Cameron Primary Care Provider [phone] Reason for Visit * Reason Onset Date Comments Med Refill 07/17/2023 Encounter Details Date Type Department Care Team ([facility] st Contact Info) Description 07/17/2023 Telephone [facility] MEDICINE 230 [place] [address] Anna Marie Cameron ANP 230 [place] [address] Med Refill Social History Tobacco Use Types [...] Upcoming Encounters Date Type Department Care Team ([facility] st Contact Info) Description 03/01/2025 2:45 PM EDT Clinical Support [facility] CHC MED & PEDS 505 [place] [address] Jeniffer Busby, RN 505 [place] [address] 03/23/2025 9:30 AM EDT Office Visit [facility] MEDICINE 230 [place] [address] Anna Marie Cameron ANP 230 [place] [address] documented as of this encounter Visit Diagnoses Not on filedocumented in this encounter Care Teams Special Shopper Relationship Specialty Start Date End Date Anna Marie Cameron ANP [address] [place] [address] PCP - General Family Medicine 05/01/20 documented as of this encounter
--- OUTSIDE RECORDS SUMMARY | 2025-01-31 07:55 | XMS_ITS | Encounter Summary ---
Author Organization [employer] Address 75 [facility] 7t [place] [address] Care Team Providers Care Canvass Manager Name Role Phone Anna Marie Cameron SHILA Primary Care Provider Reason for Visit * Reason Onset Date Comments Med Refill 01/09/2025 Encounter Details Date Type Department Care Team ([facility] st Contact Info) Description 01/09/2025 Refill [facility] CHC MED & PEDS 505 [place] [address] Jeniffer Busby, JORDAN 505 [place] [address] Chronic pain of both hips Social History [...] Clinical Support [facility] CHC MED & PEDS 505 [place] [address] Jeniffer Busby, JORDAN 505 [place] [address] 03/23/2025 9:30 AM EDT Office Visit [facility] MEDICINE [address] [place] [phone] Anna Marie aCmeron ANP 230 [place] [address] documented as of this encounter Visit Diagnoses Diagnosis Chronic pain of both hips documented in this encounter Additional Health Concerns Assessment Noted Time PHQ-9 Depression Total Score: 0 03/10/20 24 9:49 AM EDT documented as of this encounter Care Teams Canvass Manager Relationship Specialty Start Date End Date Anna Marie Cameron ANP [address] [place] [address] PCP - General Family Medicine 05/01/20 documented as of this encounter
--- OUTSIDE RECORDS SUMMARY | 2025-01-31 07:55 | XMS_ITS | Clinical Summary ---
Author Organization [employer] Address 75 [facility] 7t [place] [address] Care Team Providers Care Explosive Operator Name Role Phone Anna Marie Cameron SHILA Primary Care Provider [phone] Allergies No known active allergies Medications naloxone [...] 14 days. 42 tablet 025 2024 Active oxyCODONE (Roxicodone) 5 MG immediate release [...] by Dr Morgan Melo-Sports medicine physician in [place], [place]--I sent today request to referral sp [...] Encounters Date Type Department Care Team Description 01/23/2025 Refill [facility] MED & PEDS 505 [place] [address] Jeniffer Busby, dimmer board operator pain of both hips 01/23/2025 Telephone [facility] MEDICINE [address] [place] [phone] Anna Marie Cameron ANP Med Refill 01/09/2025 Refill [facility] MED & PEDS 505 [place] [address] Jeniffer Busby, dimmer board operator pain of both hips 01/09/2025 Telephone [facility] MEDICINE [address] [place] [address] Anna Marie Cameron ANP Med Refill 12/26/2024 Refill [facility] MED[facility] [address] [place] [address] Anna Marie Cameron ANP Chronic pain of both hips 12/20/2024 Refill [facility] [address] [place] [address] Anna Marie Cameron ANP Smoking 12/12/2024 Refill [facility] [address] [place] [address] Anna Marie Cameron ANP Chronic pain of both hips 11/28/2024 Refill [facility] [address] [place] [address] Anna Marie Cameron ANP Chronic pain of both hips 11/24/2024 2:00 PM EST Office Visit [facility] MEDICINE [address] [place] [address] Anna Marie Cameron ANP Screening for malignant neoplasm of colon (Primary Dx); Chest pain, unspecified type; Smoking; Essential hypertension; Calcaneal spur, unspecified laterality 11/24/2024 Travel 11/22/2024 3:00 PM EST Clinical Support [facility] MED & PEDS 505 [place] [address] Jeniffer Busby, dimmer board operator right shoulder pain 11/22/2024 Travel 11/14/2024 Refill [facility] MEDICINE 230 [facility] [place] [address] Anna Marie Cameron ANP Chronic pain of both hips 11/07/2024 Telephone [facility] MEDICINE 230 [facility] [place] [address] Joel Ding MA PA from [facility] 11/04/2024 Orders Only [facility] MEDICINE 230 [facility] [place] [address] Anna Marie Cameron ANP Chronic pain of both hips (Primary Dx) 11/04/2024 Telephone [facility] 230 [facility] [place] [address] Joel Ding MA PA from [facility] from Last 3 Months Immunizations Name Administration [...] Description 03/01/2025 2:45 PM EDT Clinical Support [facility] CHC MED & PEDS 505 [place] [address] Jeniffer Busby, RN 505 [place] [address] 03/23/2025 9:30 AM EDT Office Visit [facility] MEDICINE 230 [place] [address] Anna Marie Cameron ANP 230 [place] [address] Health Maintenance Due Date Last Done Comments CT Colonography 1977 Colonoscopy 1977 Colorectal Cancer Screening 1977 FIT DNA/Cologuard 1977 FIT 1977 FOBT 1977 Sigmoidoscopy 1977 Alcohol/Substance Use Screening 1989 Family Planning (PISQ) 02/25/1992 Hepatitis B Vaccines (3 of 3 - 19+ 3-dose series) 04/10/2020 11/14/2019, 10/11/2019 COVID-19 Vaccine ( season) 2024 09/15/2022, 10/22/2021, 03/25/2021, Additional history [...] 3:25 PM EST Chronic right shoulder pain HEPATITIS C AB W/REFL TO HCV RNA, QN, PCR Routine 10/04/2024 10:00 AM EST Routine screening for STI (sexually transmitted infection) HIV 1/2 ANTIGEN/ANTIBODY, FOURTH GENERATION W/RFL Routine 10/04/2024 10:00 AM EST Routine screening for STI (sexually transmitted infection) LIPID PANEL, STANDARD Routine 10/04/2024 10:00 AM EST Dyslipidemia from Last 3 Months or Most Recently Relevant to Health Maintenance Results * POCT SREEKANTH-14 Urine Drug Screen (11/22/2024 3:25 PM EST) THC Positive Oxycodone Screen, Urine Positive Urine Urine specimen obtained by clean catch procedure / Unknown 11/22/2024 3:25 PM EST Narrative Jeniffer Busby, RN - 11/22/2024 3:25 PM EST Lot# [id number] Exp: 10-22-25 us Anna Marie Cameron ANP POINT OF CARE TEST ENTER/EDIT OR DERABLES Final Result * Hepatitis C Antibody with Reflex to HCV, RNA, Quantitative, Real-Time PCR (10/04/2024 10:00 AM EST) Hepatitis C Antibody Nonreactive Nonreactive [facility] Comment:Antibodies to HCV no t detected; does not exclude early acuteHCV infection. Blood Venous blood specimen / Unknown 10/04/2024 10:00 AM EST 10/04/2024 10:00 AM EST Anna Marie Cameron ANP LAB BLOOD ORDERABLES Final Resul t Performing Organization Address [facility] Co de Phone Number [facility] [address] [place] [address] [phone] * HIV-1/2 Antigen and Antibodies, Fourth Generation, with Reflexes (10/04/2024 10:00 AM EST) HIV AB/AG Nonreactive Nonreactive [facility] Comment:HIV-1 p24 Ag and/or HIV-1/HIV-2 Ab not detected.A test result that is nonreactive does not exclude thepossibility of exposure to or infection with HIV-1 and/orHIV-2. Nonreactive results in this assay for individualswith prior exposure to HIV-1 and/or HIV-2 may be due toantigen and antibody levels that are below the limit ofdetection of this assay.The [employer] HIV Ag/Ab Combo assay result andsupplemental assay results should be interpreted inconjunction with the patient's clinical presentation,history and other laboratory results. If the results areinconsistent with clinical evidence, additional testing issuggested to confirm the result. Blood Venous blood specimen / Unknown 10/04/2024 10:00 AM EST 10/04/2024 10:00 AM EST Anna Marie Cameron [facility] LAB BLOOD ORDERABLES Final Resul t Performing Organization Address City/[facility] Co de Phone Number [facility] [address] [place] [address] [phone] * (ABNORMAL) Lipid Panel, Standard (10/04/2024 10:00 AM EST) Triglycerides 148 <150 mg/dL [facility] Comment:Desirable Triglyceri de: less than 150 mg/dLBorderline High Triglyceride 150-199 mg/dLHigh Triglyceride: 200-499 mg/dLVery High Triglyceride: greater than or equal to 5OO mg/dL Cholesterol 176 <200 mg/dL [facility] Comment:Desirable Cholestero l: less than 200 mg/dLBorderline High Cholesterol: 200-239 mg/dLHigh Cholesterol: greater than 239 mg/dL LDL Cholesterol Calculated 101(H) <100 mg/dL [facility] Comment:Desirable LDL: less than 100 mg/dLNear Optimal/Above Optimal LDL: 110- 129 mg/dLBorderline High LDL: 130-159 mg/dLHigh LDL: 160-189 mg/dLVery High LDL: greater than or equal to 190 mg/dL HDL Cholesterol 46 >40 mg/dL [facility] Comment:Desirable HDL: great er than 40 mg/dL Note: This HDL assay may give artificially low results in patients with liver disease. Blood Venous blood specimen / Unknown 10/04/2024 10:00 AM EST 10/04/2024 10:00 AM EST Anna Marie Cameron [facility] LAB BLOOD ORDERABLES Final Resul t [facility] [address] [place] [phone] from Last 3 Months or Most Recently Relevant to Health Maintenance [place] [address] [place] [address] Care Teams Explosive Operator Relationship Specialty Start Date End Date Anna Marie Cameron ANP [address] [place] [address] PCP - General Family Medicine 05/01/20
--- OUTSIDE RECORDS SUMMARY | 2025-01-31 07:55 | XMS_ITS | Encounter Summary ---
Author Organization [employer] Address 75 [facility] 7t [place] [address] Care Team Providers Care Defective Cigarette Slitter Name Role Phone Anna Marie Cameron Primary Care Provider [phone] Reason for Visit * Reason Onset Date Comments Med Refill 10/02/2023 Encounter Details Date Type Department Care Team ([facility] st Contact Info) Description 10/02/2023 Telephone [facility] MEDICINE 230 [place] [address] Anna Marie Cameron ANP 230 [place] [address] Med Refill Social History Tobacco Use Types [...] immediate release tablet to be sent to [facility]/pharmacy #[id number] [place], [place] - [address] [place] [address] documented in this encounter Plan of Treatment Upcoming Encounters Date Type Department Care Team ([facility] st Contact Info) Description 03/01/2025 2:45 PM EDT Clinical Support [facility] CHC MED & PEDS [address] [place] [address] Jeniffer Busby, RN 505 [place] [address] 03/23/2025 9:30 AM EDT Office Visit [facility] MEDICINE 230 [place] [address] Anna Marie Cameron ANP 230 [place] [address] documented as of this encounter Visit Diagnoses Not on filedocumented in this encounter Care Teams Defective Cigarette Slitter Relationship Specialty Start Date End Date Anna Marie Cameron ANP [address] [place] [address] PCP - General Family Medicine 05/01/20 documented as of this encounter
--- OUTSIDE RECORDS SUMMARY | 2025-01-31 07:55 | XMS_ITS | Encounter Summary ---
Author Organization [employer] Address 75 [facility] 7t [place] [address] Care Team Providers Care Structural Worker Name Role Phone Anna Marie Cameron Primary Care Provider [phone] Reason for Visit * Reason Onset Date Comments Med Refill 10/29/2023 Encounter Details Date Type Department Care Team ([facility] st Contact Info) Description 10/29/2023 Telephone [facility] MEDICINE 230 [place] [address] Anna Marie Cameron ANP 230 [place] [address] Med Refill Social History Tobacco Use Types [...] Description 03/01/2025 2:45 PM EDT Clinical Support [facility] MED & PEDS 505 [place] [address] Jeniffer Busby, RN 505 [place] [address] 03/23/2025 9:30 AM EDT Office Visit [facility] MEDICINE [address] [place] [address] Anna Marie Cameron ANP [address] [place] [address] documented as of this encounter Visit Diagnoses Not on filedocumented in this encounter Care Teams Structural Worker Relationship Specialty Start Date End Date Anna Marie Cameron ANP [address] [place] [address] PCP - General Family Medicine 05/01/20 documented as of this encounter
--- OUTSIDE RECORDS SUMMARY | 2025-01-31 07:55 | XMS_ITS | Encounter Summary ---
Author Organization [employer] Address 75 [facility] 7t [place] [address] Care Team Providers Care Cost Controller Name Role Phone Anna Marie Cameron Primary Care Provider [phone] Reason for Visit * Reason Onset Date Comments Med Refill 10/03/2024 Encounter Details Date Type Department Care Team ([facility] st Contact Info) Description 10/03/2024 Telephone [facility] MEDICINE 230 [place], [place] [phone] Anna Marie Cameron ANP 230 [place] [address] Med Refill Social History Tobacco Use Types [...] the past 12 months, has t he [employer], gas, oil or water company threatened to [...] release tablet To be sent to: /pharmacy #[address] [place] [address] - [address] [place] [address] documented in this encounter Plan of Treatment Upcoming Encounters Date Type Department Care Team (Late st Contact Info) Description 03/01/2025 2:45 PM EDT Clinical Support [facility] CHC MED & PEDS 505 [place] [address] Jeniffer Busby, JORDAN 505 [place] [address] 03/23/2025 9:30 AM EDT Office Visit [facility] MEDICINE 230 [place] [address] Anna Marie Cameron ANP 230 [place], [place] [phone] documented as of this encounter Visit Diagnoses Not on filedocumented in this encounter Additional Health Concerns Assessment Noted Time PHQ-9 Depression Total Score: 0 03/10/20 24 9:49 AM EDT documented as of this encounter Care Teams Cost Controller Relationship Specialty Start Date End Date Anna Marie Cameron ANP 230 [place] [address] PCP - General Family Medicine 05/01/20 documented as of this encounter
== END ==
LOC: HO.CARD 07:51
PROVIDERS: PCP Nurse Practitioner Primary Care; Visit Provider Internal Medicine Cardiovascular Disease
DX: R07.9 Chest pain, unspecified (principal); R06.09 Other forms of dyspnea
CPT/HCPCS: 93017

== ENCOUNTER → 2025-01-31 07:54 | Outpatient (BNV) | payer OTHER, SELFPAY | PROVIDERS: PCP Nurse Practitioner Primary Care | DX: I49.3 Ventricular premature depolarization (principal); R06.02 Shortness of breath | CPT/HCPCS: 93016; 93018 ==

== ENCOUNTER → 2025-02-07 15:24 | Outpatient (REF) | payer OTHER, SELFPAY ==
--- OUTSIDE RECORDS SUMMARY | 2025-02-07 19:14 | XMS_ITS | Encounter Summary ---
Author Organization [employer] Address 75 [facility] 7t [place] [address] Care Team Providers Care Yacht Hand Name Role Phone Anna Marie Cameron Primary Care Provider [phone] Reason for Visit * Reason Onset Date Comments Med Refill 10/17/2024 Encounter Details Date Type Department Care Team ([facility] st Contact Info) Description 10/17/2024 Telephone [facility] MEDICINE 230 [place], [place] [phone] Anna Marie Cameron ANP 230 [place] [address] Med Refill Social History Tobacco Use Types [...] the past 12 months, has t he [employer], gas, oil or water company threatened to [...] immediate release tablet To be sent to: [facility]/pharmacy #[id number] [place] [address] documented in this encounter Plan of Treatment Upcoming Encounters Date Type Department Care Team (Late st Contact Info) Description 03/01/2025 2:45 PM EDT Clinical Support [facility] CHC MED & PEDS 505 [place] [address] Jeniffer Busby, JORDAN 505 [place] [address] 03/23/2025 9:30 AM EDT Office Visit [facility] MEDICINE 230 [place] [address] Anna Marie Cameron ANP 230 [place] [address] documented as of this encounter Visit Diagnoses Not on filedocumented in this encounter Additional Health Concerns Assessment Noted Time PHQ-9 Depression Total Score: 0 03/10/20 24 9:49 AM EDT documented as of this encounter Care Teams Yacht Hand Relationship Specialty Start Date End Date Anna Marie Cameron ANP 230 [place] [address] PCP - General Family Medicine 05/01/20 documented as of this encounter
--- OUTSIDE RECORDS SUMMARY | 2025-02-07 19:14 | XMS_ITS | Clinical Summary ---
Author Organization [employer] Address 75 [facility] 7t [place] [address] Care Team Providers Care Slip Cover Sewer Name Role Phone Anna Marie Cameron SHILA Primary Care Provider [phone] Allergies No known active allergies Medications naloxone [...] by Dr Morgan Melo-Sports medicine physician in [place], [place]--I sent today request to referral sp [...] Encounters Date Type Department Care Team Description 02/06/2025 Refill [facility] MEDICINE [address] [place] [address] Anna Marie Cameron ANP Chronic pain of both hips 01/23/2025 Refill [facility] MED & PEDS [address] [place] [address] Jeniffer Busby RN Chronic pain of both hips 01/23/2025 Telephone [facility] MEDICINE [address] [place] [address] Anna Marie Cameron ANP Med Refill 01/09/2025 Refill [facility] MED & PEDS [address] [place] [address] Jeniffer Busby RN Chronic pain of both hips 01/09/2025 Telephone [facility] MEDICINE [address] [place] [address] Anna Marie Cameron ANP Med Refill 12/26/2024 Refill [facility] MEDICINE [address] [place] [address] Anna Marie Cameron ANP Chronic pain of both hips 12/20/2024 Refill [facility] MEDICINE [address] [place] [address] Anna Marie Cameron ANP Smoking 12/12/2024 Refill [facility]INE [address] [place] [address] Anna Marie Cameron ANP Chronic pain of both hips 11/28/2024 Refill [facility] MEDICINE [address] [place] [address] Anna Marie Cameron ANP Chronic pain of both hips 11/24/2024 2:00 PM EST Office Visit [facility] MEDICINE [address] [place] [address] Anna Marie Cameron ANP Screening for malignant neoplasm of colon (Primary Dx); Chest pain, unspecified type; Smoking; Essential hypertension; Calcaneal spur, unspecified laterality 11/24/2024 Travel 11/22/2024 3:00 PM EST Clinical Support [facility]C MED & PEDS [address] [place] [address] Jeniffer Busby RN Chronic right shoulder pain 11/22/2024 Travel 11/14/2024 Refill [facility] MEDICINE [address] [place] [address] Anna Marie Cameron ANP Chronic pain of both hips from Last 3 Months Immunizations Name Administration [...] 2:45 PM EDT Clinical Support [facility] MED & PEDS [address] [place] [address] Jeniffer Busby, RN 505 [place] [address] 03/23/2025 9:30 AM EDT Office Visit [facility] MEDICINE [address] [place] [address] Anna Marie Cameron ANP [address] [place] [address] Health Maintenance Due Date Last Done Comments [...] RN - 11/22/2024 3:25 PM EST Lot# [id number] Exp: 10-22-25 [facility] POINT OF CARE TEST ENTER/EDIT OR DERABLES Final Result * Hepatitis C Antibody with Reflex to HCV, RNA, Quantitative, Real-Time PCR (10/04/2024 10:00 AM EST) Hepatitis C Antibody Nonreactive Nonreactive [facility] Comment:Antibodies to HCV no t detected; does not exclude early acuteHCV infection. Blood Venous blood specimen / Unknown 10/04/2024 10:00 AM EST 10/04/2024 10:00 AM EST Anna Marie Cameron [facility] BLOOD ORDERABLES Final Resul t Performing Organization Address [facility] Co de Phone Number [facility] [address] [place] [address] [phone] * HIV-1/2 Antigen and Antibodies, Fourth Generation, with Reflexes (10/04/2024 10:00 AM EST) HIV AB/AG Nonreactive Nonreactive [facility] Comment:HIV-1 p24 Ag and/or HIV-1/HIV-2 Ab not detected.A test result that is nonreactive does not exclude thepossibility of exposure to or infection with HIV-1 and/orHIV-2. Nonreactive results in this assay for individualswith prior exposure to HIV-1 and/or HIV-2 may be due toantigen and antibody levels that are below the limit ofdetection of this assay.The Meeps HIV Ag/Ab Combo assay result andsupplemental assay results should be interpreted inconjunction with the patient's clinical presentation,history and other laboratory results. If the results areinconsistent with clinical evidence, additional testing issuggested to confirm the result. Blood Venous blood specimen / Unknown 10/04/2024 10:00 AM EST 10/04/2024 10:00 AM EST us Anna Marie Cameron [facility] BLOOD ORDERABLES Final Resul t Performing Organization Address City/[facility]/ZIP Co de Phone Number [facility] [address] [place] [address] [phone] * (ABNORMAL) Lipid Panel, Standard (10/04/2024 10:00 AM EST) Triglycerides 148 <150 mg/dL [facility] Comment:Desirable Triglyceri de: less than 150 mg/dLBorderline High Triglyceride 150-199 mg/dLHigh Triglyceride: 200-499 mg/dLVery High Triglyceride: greater than or equal to 5OO mg/dL Cholesterol 176 <200 mg/dL [facility] Comment:Desirable Cholestero l: less than 200 mg/dLBorderline High Cholesterol: 200-239 mg/dLHigh Cholesterol: greater than 239 mg/dL LDL Cholesterol Calculated 101(H) <100 mg/dL [facility] Comment:Desirable LDL: less than 100 mg/dLNear Optimal/Above Optimal LDL: 110- 129 mg/dLBorderline High LDL: 130-159 mg/dLHigh LDL: 160-189 mg/dLVery High LDL: greater than or equal to 190 mg/dL HDL Cholesterol 46 >40 mg/dL [facility] Comment:Desirable HDL: great er than 40 mg/dL Note: This HDL assay may give artificially low results in patients with liver disease. Blood Venous blood specimen / Unknown 10/04/2024 10:00 AM EST 10/04/2024 10:00 AM EST Anna Marie Cameron [facility] BLOOD ORDERABLES Final Resul t [facility] [address] [place] [phone] from Last 3 Months or Most Recently Relevant to Health Maintenance [place] [address] [address] [place] [address] Care Teams Slip Cover Sewer Relationship Specialty Start Date End Date Anna Marie Cameron ANP [address] [place] [address] PCP - General Family Medicine 05/01/20
--- OUTSIDE RECORDS SUMMARY | 2025-02-07 19:14 | XMS_ITS | Encounter Summary ---
Author Organization [employer] Address [address] [facility] [address] 7t [place] [address] Care Team Providers Care It Corporate Recruiter Name Role Phone Anna Marie Cameron Primary Care Provider [phone] Reason for Visit * Reason Onset Date Comments Med Refill 02/06/2025 Encounter Details Date Type Department Care Team (Late st Contact Info) Description 02/06/2025 Refill [facility] MEDICINE [address] [place] [address] Anna Marie Cameron ANP 230 [place] [address] Chronic pain of both hips Social History [...] * Telephone Encounter - Papo Alexander - 02/06/2025 9:46 AM EDT TC from pt requesting medication refill. Medications needing refill : oxyCODONE (Roxicodone) 5 MG immediate release tablet To be sent to: [facility]/pharmacy #[id number] [place] [address] documented in this encounter Plan of Treatment Upcoming Encounters Date Type Department Care Team (Late st Contact Info) Description 03/01/2025 2:45 PM EDT Clinical Support [facility] CHC MED & PEDS [address] [place] [address] Jeniffer Busby, JORDAN 505 [place] [address] 03/23/2025 9:30 AM EDT Office Visit [facility] MEDICINE [address] [place] [address] Anna Marie Cameron ANP [address] [place], [place] [phone] documented as of this encounter Visit Diagnoses Diagnosis Chronic pain of both hips documented in this encounter Additional Health Concerns Assessment Noted Time PHQ-9 Depression Total Score: 0 03/10/20 24 9:49 AM EDT documented as of this encounter Care Teams It Corporate Recruiter Relationship Specialty Start Date End Date Anna Marie Cameron ANP [address] [place] [address] PCP - General Family Medicine 05/01/20 documented as of this encounter
--- OUTSIDE RECORDS SUMMARY | 2025-02-07 19:14 | XMS_ITS | Encounter Summary ---
Author Organization [employer] Address 75 [facility] 7t [place] [address] Care Team Providers Care Manufacturing Management Associate Name Role Phone Anna Marie Cameron Primary Care Provider [phone] Reason for Visit * Reason Onset Date Comments Med Refill 07/11/2024 Encounter Details Date Type Department Care Team ([facility] st Contact Info) Description 07/11/2024 Telephone [facility] MEDICINE [address] [place], [place] [phone] Anna Marie Cameron ANP [address] [place] [address] Med Refill Social History Tobacco Use Types [...] the past 12 months, has t he [employer], gas, oil or water company threatened to [...] release tablet [facility] be [facility]: [facility]/pharmacy #[id number] [place] [address] documented in this encounter Plan of Treatment Upcoming Encounters Date Type Department Care Team (Late st Contact Info) Description 03/01/2025 2:45 PM EDT Clinical Support [facility] CH[facility] MED & PEDS [address] [place] [address] Jeniffer Busby, JORDAN [address] [place] [address] 03/23/2025 9:30 AM EDT Office Visit [facility] MEDICINE [address] [place] [address] Anna Marie Cameron ANP [address] [place] [address] documented as of this encounter Visit Diagnoses Not on filedocumented in this encounter Additional Health Concerns Assessment Noted Time PHQ-9 Depression Total Score: 0 03/10/20 24 9:49 AM EDT documented as of this encounter Care Teams Manufacturing Management Associate Relationship Specialty Start Date End Date Anna Marie Cameron ANP [address] [place] [address] PCP - General Family Medicine 05/01/20 documented as of this encounter
--- OUTSIDE RECORDS SUMMARY | 2025-02-07 19:14 | XMS_ITS | Encounter Summary ---
Author Organization [employer] Address 75 [facility] 7t [place] [address] Care Team Providers Care Java Project Manager Name Role Phone Anna Marie Cameron Primary Care Provider [phone] Reason for Visit * Reason Onset Date Comments Med Refill 07/25/2024 Encounter Details Date Type Department Care Team ([facility] st Contact Info) Description 07/25/2024 Telephone [facility] MEDICINE [address] [place], [place] [phone] Anna Marie Cameron ANP [address] [place] [address] Med Refill Social History Tobacco Use Types [...] the past 12 months, has t he [employer], gas, oil or water company threatened to [...] be sent to: [facility]/pharmacy #[id number] [place] [address] documented in this encounter Plan of Treatment Upcoming Encounters Date Type Department Care Team (Late st Contact Info) Description 03/01/2025 2:45 PM EDT Clinical Support [facility] MED & PEDS [address] [place] [address] Jeniffer Busby, JORDAN [address] [place] [address] 03/23/2025 9:30 AM EDT Office Visit [facility] MEDICINE [address] [place] [address] Anna Marie Cameron ANP [address] [place] [address] documented as of this encounter Visit Diagnoses Not on filedocumented in this encounter Additional Health Concerns Assessment Noted Time PHQ-9 Depression Total Score: 0 03/10/20 24 9:49 AM EDT documented as of this encounter Care Teams Java Project Manager Relationship Specialty Start Date End Date Anna aMrie Cameron ANP [address] [place] [address] PCP - General Family Medicine 05/01/20 documented as of this encounter
--- OUTSIDE RECORDS SUMMARY | 2025-02-07 19:14 | XMS_ITS | Encounter Summary ---
Author Organization [employer] Address 75 [facility] 7t [place] [address] Care Team Providers Care Solid Waste Division Supervisor Name Role Phone Anna Marie Cameron Primary Care Provider [phone] Reason for Visit * Reason Onset Date Comments Med Refill 10/02/2023 Encounter Details Date Type Department Care Team ([facility] st Contact Info) Description 10/02/2023 Telephone [facility] MEDICINE [address] [place] [address] Anna Marie Cameron ANP [address] [place] [address] Med Refill Social History Tobacco Use Types [...] immediate release tablet to be sent to [facility]/pharmacy #[id number] [place], [place] - [address] [place] [address] documented in this encounter Plan of Treatment Upcoming Encounters Date Type Department Care Team ([facility] st Contact Info) Description 03/01/2025 2:45 PM EDT Clinical Support [facility] CHC MED & PEDS [address] [place] [address] Jeniffer Busby, RN [address] [place] [address] 03/23/2025 9:30 AM EDT Office Visit [facility] MEDICINE [address] [place] [address] Anna Marie Cameron ANP [address] [place] [address] documented as of this encounter Visit Diagnoses Not on filedocumented in this encounter Care Teams Solid Waste Division Supervisor Relationship Specialty Start Date End Date Anna Marie Cameron ANP [address] [place] [address] PCP - General Family Medicine 05/01/20 documented as of this encounter
--- OUTSIDE RECORDS SUMMARY | 2025-02-07 19:14 | XMS_ITS | Encounter Summary ---
Author Organization [facility] [employer] Address 75 [facility] 7t [place] [address] Care Team Providers Care Sewer Inspector Name Role Phone Anna Marie Cameron Primary Care Provider [phone] Reason for Visit * Reason Onset Date Comments Med Refill 01/09/2025 Encounter Details Date Type Department Care Team ([facility] st Contact Info) Description 01/09/2025 Telephone [facility] MEDICINE [address] [place], [place] [phone] Anna Marie Caemron ANP [address] [place] [address] Med Refill Social History Tobacco Use Types [...] the past 12 months, has t he [employer], gas, oil or water company threatened to [...] release tablet To be sent to: [facility]/pharmacy #[id number] [place] [address] documented in this encounter Plan of Treatment Upcoming Encounters Date Type Department Care Team (Late st Contact Info) Description 03/01/2025 2:45 PM EDT Clinical Support [facility] CHC MED & PEDS [address] [place] [address] Jeniffer Busby, JORDAN [address] [place] [address] 03/23/2025 9:30 AM EDT Office Visit [facility] MEDICINE [address] [place] [address] Anna Marie Cameron ANP [address] [place] [address] documented as of this encounter Visit Diagnoses Not on filedocumented in this encounter Additional Health Concerns Assessment Noted Time PHQ-9 Depression Total Score: 0 03/10/20 24 9:49 AM EDT documented as of this encounter Care Teams Sewer Inspector Relationship Specialty Start Date End Date Anna Marie Cameron ANP [address] [place] [address] PCP - General Family Medicine 05/01/20 documented as of this encounter
--- OUTSIDE RECORDS SUMMARY | 2025-02-07 19:14 | XMS_ITS | Encounter Summary ---
Author Organization [employer] Address 75 [facility] 7t [place] [address] Care Team Providers Care Surg Physician Asst Name Role Phone Anna Marie Cameron Primary Care Provider [phone] Reason for Visit * Reason Onset Date Comments Med Refill 07/17/2023 Encounter Details Date Type Department Care Team ([facility] st Contact Info) Description 07/17/2023 Telephone [facility] MEDICINE [address] [place] [address] Anna Marie Cameron ANP [address] [place] [address] Med Refill Social History Tobacco Use Types [...] Upcoming Encounters Date Type Department Care Team ([facility] st Contact Info) Description 03/01/2025 2:45 PM EDT Clinical Support [facility] CHC MED & PEDS [address] [place] [address] Jeniffer Busby, RN [address] [place] [address] 03/23/2025 9:30 AM EDT Office Visit [facility] MEDICINE [address] [place] [address] Anna Marie Cameron ANP [address] [place] [address] documented as of this encounter Visit Diagnoses Not on filedocumented in this encounter Care Teams Surg Physician Asst Relationship Specialty Start Date End Date Anna Marie Cameron ANP [address] [place] [address] PCP - General Family Medicine 05/01/20 documented as of this encounter
--- OUTSIDE RECORDS SUMMARY | 2025-02-07 19:14 | XMS_ITS | Encounter Summary ---
Author Organization [employer] Address 75 [facility] 7t [place] [address] Care Team Providers Care Medical Coding Auditor Name Role Phone Anna Marie Cameron SHILA Primary Care Provider Reason for Visit * Reason Onset Date Comments Med Refill 01/09/2025 Encounter Details Date Type Department Care Team ([facility] st Contact Info) Description 01/09/2025 Refill [facility] CHC MED & PEDS [address] [place] [address] Jeniffer Busby, JORDAN [address] [place] [address] Chronic pain of both hips Social History [...] Description 03/01/2025 2:45 PM EDT Clinical Support [facility] CHC MED & PEDS [address] [place] [address] Jeniffer Busby, JORDAN [address] [place] [address] 03/23/2025 9:30 AM EDT Office Visit [facility] MEDICINE [address] [place] [address] Anna Marie Cameron ANP [address] [place] [address] documented as of this encounter Visit Diagnoses Diagnosis Chronic pain of both hips documented in this encounter Additional Health Concerns Assessment Noted Time PHQ-9 Depression Total Score: 0 03/10/20 24 9:49 AM EDT documented as of this encounter Care Teams Medical Coding Auditor Relationship Specialty Start Date End Date Anna Marie Cameron ANP [address] [place] [address] PCP - General Family Medicine 05/01/20 documented as of this encounter
--- OUTSIDE RECORDS SUMMARY | 2025-02-07 19:14 | XMS_ITS | Encounter Summary ---
Author Organization [employer] Address 75 [facility] 7t [place] [address] Care Team Providers Care Lead Pony Rider Name Role Phone Anna Marie Cameron Primary Care Provider [phone] Reason for Visit * Reason Onset Date Comments Med Refill 06/27/2024 Encounter Details Date Type Department Care Team ([facility] st Contact Info) Description 06/27/2024 Telephone [facility] MEDICINE [address] [place], [place] [phone] Anna Marie Cameron ANP [address] [place] [address] Med Refill Social History Tobacco Use Types [...] the past 12 months, has t he [employer], gas, oil or water company threatened to [...] Clinical Support [facility] CHC MED & PEDS [address] [place] [address] Jeniffer Busby, RN [address] [place] [address] 03/23/2025 9:30 AM EDT Office Visit [facility] MEDICINE [address] [place] [address] Anna Marie Cameron ANP [address] [place] [address] documented as of this encounter Visit Diagnoses Not on filedocumented in this encounter Additional Health Concerns Assessment Noted Time PHQ-9 Depression Total Score: 0 03/10/20 24 9:49 AM EDT documented as of this encounter Care Teams Lead Pony Rider Relationship Specialty Start Date End Date Anna Marei Cameron ANP [address] [place] [address] PCP - General Family Medicine 05/01/20 documented as of this encounter
--- OUTSIDE RECORDS SUMMARY | 2025-02-07 19:14 | XMS_ITS | Encounter Summary ---
Author Organization [employer] Address 75 [facility] 7t [place] [address] Care Team Providers Care Area Relief Pilot Name Role Phone Anna Marie Cameron Primary Care Provider [phone] Reason for Visit * Reason Onset Date Comments Med Refill 05/30/2024 Encounter Details Date Type Department Care Team ([facility] st Contact Info) Description 05/30/2024 Telephone [facility] MEDICINE [address] [place], [place] [phone] Anna Marie Cameron ANP [address] [place] [address] Med Refill Social History Tobacco Use Types [...] the past 12 months, has t he [employer], gas, oil or water company threatened to [...] immediate release tablet To be sent to: [facility]/pharmacy #[id number] [place] [address] - [address] [place] [address] documented in this encounter Plan of Treatment Upcoming Encounters Date Type Department Care Team (Late st Contact Info) Description 03/01/2025 2:45 PM EDT Clinical Support [facility] CHC MED & PEDS [address] [place] [address] Jeniffer Busby, JORDAN [address] [place] [address] 03/23/2025 9:30 AM EDT Office Visit [facility] MEDICINE [address] [place] [address] Anna Marie Cameron ANP [address] [place] [address] documented as of this encounter Visit Diagnoses Not on filedocumented in this encounter Additional Health Concerns Assessment Noted Time PHQ-9 Depression Total Score: 0 03/10/20 24 9:49 AM EDT documented as of this encounter Care Teams Area Relief Pilot Relationship Specialty Start Date End Date Anna Marie Cameron ANP [address] [place] [address] PCP - General Family Medicine 05/01/20 documented as of this encounter
--- OUTSIDE RECORDS SUMMARY | 2025-02-07 19:14 | XMS_ITS | Clinical Summary ---
Author Organization [address] [facility] Address [address] [place] [address] Phone Care Team Providers Care Raw Shellfish Preparer Name Role Phone Anna Marie Cameron NP Primary Care Provider [phone] Social History Tobacco Use Types Packs/Day Years Used Date Smoking Tobacco: Never Assessed Sex and Gender Information Value Date Recorded Sex Assigned at Not on file Legal Sex Male 2:05 PM EST Gender Identity Not on file Sexual Orientation Not on file Plan of Treatment Upcoming Encounters Date Type Department Care Team ([facility] Contact Info) Description 03/08/2025 3:15 PM EDT Consult Orthopedic Surgery - [place] [phone] [phone] Buck Maldonado, DPM [address] [address] Health Maintenance Due Date Last Done Comments [...] age to complete this topic Insurance , [address] [place] [id number] [place] [address] PUBLIC PLANS Care Teams Raw Shellfish Preparer Relationship Specialty Start Date End Date Anna Marie Cameron NP [address] [place] [phone] PCP - General 01/03/25
--- OUTSIDE RECORDS SUMMARY | 2025-02-07 19:14 | XMS_ITS | Encounter Summary ---
Author Organization [employer] Address 75 [facility] 7t [place] [address] Care Team Providers Care Injection Machine Operator Name Role Phone Anna Marie Cameron Primary Care Provider [phone] Reason for Visit * Reason Onset Date Comments Med Refill 09/19/2024 Encounter Details Date Type Department Care Team ([facility] st Contact Info) Description 09/19/[address] [facility] MEDICINE [address] [place], [place] [phone] Anna Marie Cameron ANP [address] [place] [address] Med Refill Social History Tobacco Use Types [...] the past 12 months, has t he [employer], gas, oil or water company threatened to [...] immediate release tablet To be sent to: [facility]/pharmacy #[id number] [place] [address] documented in this encounter Plan of Treatment Upcoming Encounters Date Type Department Care Team (Late st Contact Info) Description 03/01/2025 2:45 PM EDT Clinical Support [facility] CHC MED & PEDS [address] [place] [address] Jeniffer Busby, JORDAN 505 [place] [address] 03/23/2025 9:30 AM EDT Office Visit [facility] MEDICINE [address] [place] [address] Anna Marie Cameron ANP [address] [place] [address] documented as of this encounter Visit Diagnoses Not on filedocumented in this encounter Additional Health Concerns Assessment Noted Time PHQ-9 Depression Total Score: 0 03/10/20 24 9:49 AM EDT documented as of this encounter Care Teams Injection Machine Operator Relationship Specialty Start Date End Date Anna Marie Cameron ANP [address] [place] [address] PCP - General Family Medicine 05/01/20 documented as of this encounter
--- OUTSIDE RECORDS SUMMARY | 2025-02-07 19:14 | XMS_ITS | Encounter Summary ---
Author Organization [employer] Address 75 [facility] 7t [place] [address] Care Team Providers Care Social Science Instructor Name Role Phone Anna Marie Cameron Primary Care Provider [phone] Reason for Visit * Reason Onset Date Comments Med Refill 10/03/2024 Encounter Details Date Type Department Care Team ([facility] st Contact Info) Description 10/03/2024 Telephone [facility] MEDICINE [address] [place], [place] [phone] Anna Marie Cameron ANP 230 [place] [address] Med Refill Social History Tobacco Use Types [...] the past 12 months, has t he [employer], gas, oil or water company threatened to [...] release tablet To be sent to: /pharmacy #[address] [place] [address] - [address] [place] [address] documented in this encounter Plan of Treatment Upcoming Encounters Date Type Department Care Team (Late st Contact Info) Description 03/01/2025 2:45 PM EDT Clinical Support [facility] CHC MED & PEDS [address] [place] [address] Jeniffer Busby, JORDAN 505 [place] [address] 03/23/2025 9:30 AM EDT Office Visit [facility] MEDICINE 230 [place] [address] Anna Marie Cameron ANP [address] [place], [place] [phone] documented as of this encounter Visit Diagnoses Not on filedocumented in this encounter Additional Health Concerns Assessment Noted Time PHQ-9 Depression Total Score: 0 03/10/20 24 9:49 AM EDT documented as of this encounter Care Teams Social Science Instructor Relationship Specialty Start Date End Date Anna Marie Cameron ANP 230 [place] [address] PCP - General Family Medicine 05/01/20 documented as of this encounter
--- OUTSIDE RECORDS SUMMARY | 2025-02-07 19:14 | XMS_ITS | Encounter Summary ---
Author Organization [employer] Address 75 [facility] 7t [place] [address] Care Team Providers Care Boat Camp Operator Name Role Phone Anna Marie Cameron Primary Care Provider [phone] Reason for Visit * Reason Onset Date Comments Med Refill 01/23/2025 Encounter Details Date Type Department Care Team ([facility] st Contact Info) Description 01/23/2025 Telephone [facility] MEDICINE 230 [place], [place] [phone] Anna Marie Cameron ANP 230 [place] [address] Med Refill Social History Tobacco Use Types [...] the past 12 months, has t he [employer], gas, oil or water company threatened to [...] be sent to: [facility]/pharmacy #[id number] [place] [address] - [address] [place] [address] documented in this encounter Plan of Treatment Upcoming Encounters Date Type Department Care Team (Late st Contact Info) Description 03/01/2025 2:45 PM EDT Clinical Support [facility] CHC MED & PEDS 505 [place] [address] Jeniffer Busby, JORDAN 505 [place] [address] 03/23/2025 9:30 AM EDT Office Visit [facility] MEDICINE 230 [place] [address] Anna Marie Cameron, ANP 230 [place] [address] documented as of this encounter Visit Diagnoses Not on filedocumented in this encounter Additional Health Concerns Assessment Noted Time PHQ-9 Depression Total Score: 0 03/10/20 24 9:49 AM EDT documented as of this encounter Care Teams Boat Camp Operator Relationship Specialty Start Date End Date Anna Marie Cameron ANP 230 [place] [address] PCP - General Family Medicine 05/01/20 documented as of this encounter
--- OUTSIDE RECORDS SUMMARY | 2025-02-07 19:14 | XMS_ITS | Encounter Summary ---
Author Organization [employer] Address 75 [facility] 7t [place] [address] Care Team Providers Care Immigration Law Specialist Name Role Phone Anna Marie Cameron Primary Care Provider [phone] Reason for Visit * Reason Onset Date Comments Med Refill 06/13/2024 Encounter Details Date Type Department Care Team ([facility] st Contact Info) Description 06/13/2024 Telephone [facility] MEDICINE 230 [place], [place] [phone] Anna Marie Cameron ANP 230 [place] [address] Med Refill Social History Tobacco Use Types [...] the past 12 months, has t he [employer], gas, oil or water company threatened to [...] immediate release tablet To be sent to: [facility]/pharmacy #[id number] [place] [address] documented in this encounter Plan of Treatment Upcoming Encounters Date Type Department Care Team (Late st Contact Info) Description 03/01/2025 2:45 PM EDT Clinical Support [facility] CHC MED & PEDS 505 [place] [address] Jeniffer Busby, JORDAN 505 [place] [address] 03/23/2025 9:30 AM EDT Office Visit [facility] MEDICINE 230 [place] [address] Anna Marie Cameron ANP 230 [place] [address] documented as of this encounter Visit Diagnoses Not on filedocumented in this encounter Additional Health Concerns Assessment Noted Time PHQ-9 Depression Total Score: 0 03/10/20 24 9:49 AM EDT documented as of this encounter Care Teams Immigration Law Specialist Relationship Specialty Start Date End Date Anna Marie Cameron ANP 230 [place] [address] PCP - General Family Medicine 05/01/20 documented as of this encounter
--- OUTSIDE RECORDS SUMMARY | 2025-02-07 19:14 | XMS_ITS | Encounter Summary ---
Author Organization [employer] Address 75 [facility] 7t [place] [address] Care Team Providers Care Director Pharmacy Services Name Role Phone Anna Marie Cameron Primary Care Provider [phone] Reason for Visit * Reason Onset Date Comments Med Refill 08/20/2023 Encounter Details Date Type Department Care Team ([facility] st Contact Info) Description 08/20/2023 Telephone [facility] MEDICINE [address] [place] [address] Anna Marie Cameron ANP 230 [place] [address] Med Refill Social History Tobacco Use Types [...] immediate release tablet to be sent to [facility]/pharmacy #[id number] [place], [place] - [address] [facility] documented in this encounter Plan of Treatment Upcoming Encounters Date Type Department Care Team ([facility] st Contact Info) Description 03/01/2025 2:45 PM EDT Clinical Support [facility] CHC MED & PEDS 505 [place] [address] Jeniffer Busby, RN 505 [place] [address] 03/23/2025 9:30 AM EDT Office Visit [facility] MEDICINE [address] [place] [address] Anna Marie Cameron ANP 230 [place] [address] documented as of this encounter Visit Diagnoses Not on filedocumented in this encounter Care Teams Director Pharmacy Services Relationship Specialty Start Date End Date Anna Marie Cameron ANP [address] [place] [address] PCP - General Family Medicine 05/01/20 documented as of this encounter
--- OUTSIDE RECORDS SUMMARY | 2025-02-07 19:14 | XMS_ITS | Encounter Summary ---
Author Organization [employer] Address 75 [facility] 7t [place] [address] Care Team Providers Care Ceramic Artist Name Role Phone Anna Marie Cameron Primary Care Provider [phone] Reason for Visit * Reason Onset Date Comments Med Refill 05/17/2024 Encounter Details Date Type Department Care Team ([facility] st Contact Info) Description 05/17/2024 Telephone [facility] MEDICINE 230 [place], [place] [phone] Anna Marie Cameron ANP 230 [place] [address] Med Refill Social History Tobacco Use Types [...] the past 12 months, has t he [employer], gas, oil or water company threatened to [...] release tablet To be sent to: [facility]/pharmacy #[id number] [place] [address] - [address] [place] [address] documented in this encounter Plan of Treatment Upcoming Encounters Date Type Department Care Team (Late st Contact Info) Description 03/01/2025 2:45 PM EDT Clinical Support [facility] CHC MED & PEDS 505 [place] [address] Jeniffer Busby, JORDAN 505 [place] [address] 03/23/2025 9:30 AM EDT Office Visit [facility] MEDICINE 230 [place] [address] Anna Marie Cameron ANP [address] [place] [address] documented as of this encounter Visit Diagnoses Not on filedocumented in this encounter Additional Health Concerns Assessment Noted Time PHQ-9 Depression Total Score: 0 03/10/20 24 9:49 AM EDT documented as of this encounter Care Teams Ceramic Artist Relationship Specialty Start Date End Date Anna Marie Cameron ANP [address] [place] [address] PCP - General Family Medicine 05/01/20 documented as of this encounter
--- OUTSIDE RECORDS SUMMARY | 2025-02-07 19:14 | XMS_ITS | Encounter Summary ---
Author Organization [employer] Address 75 [facility] 7t [place] [address] Care Team Providers Care City Solicitor Name Role Phone Anna Marie Cameron Primary Care Provider [phone] Reason for Visit * Reason Onset Date Comments Med Refill 08/22/2024 Encounter Details Date Type Department Care Team ([facility] st Contact Info) Description 08/22/2024 Telephone [facility] MEDICINE 230 [place], [place] [phone] Anna Marie Cameron ANP 230 [place] [address] Med Refill Social History Tobacco Use Types [...] the past 12 months, has t he [employer], gas, oil or water company threatened [...] immediate release tablet To be sent to: [facility]/pharmacy #[id number] [place] [address] documented in this encounter Plan of Treatment Upcoming Encounters Date Type Department Care Team (Late st Contact Info) Description 03/01/2025 2:45 PM EDT Clinical Support [facility] CHC MED & PEDS 505 [place] [address] Jeniffer Busby, JORDAN 505 [place] [address] 03/23/2025 9:30 AM EDT Office Visit [facility] MEDICINE 230 [place] [address] Anna Marie Cameron ANP 230 [place] [address] documented as of this encounter Visit Diagnoses Not on filedocumented in this encounter Additional Health Concerns Assessment Noted Time PHQ-9 Depression Total Score: 0 03/10/20 24 9:49 AM EDT documented as of this encounter Care Teams City Solicitor Relationship Specialty Start Date End Date Anna Marie Cameron ANP 230 [place] [address] PCP - General Family Medicine 05/01/20 documented as of this encounter
--- OUTSIDE RECORDS SUMMARY | 2025-02-07 19:14 | XMS_ITS | Encounter Summary ---
Author Organization [employer] Address 75 [facility] 7t [place] [address] Care Team Providers Care Tire Balancer Name Role Phone Anna Marie Cameron Primary Care Provider [phone] Reason for Visit * Reason Onset Date Comments Med Refill 03/13/2023 Encounter Details Date Type Department Care Team ([facility] Contact Info) Description 03/13/2023 Telephone [facility] MEDICINE 230 [place] [address] Anna Marie Cameron ANP 230 [place] [address] Med Refill Social History Tobacco Use Types [...] Upcoming Encounters Date Type Department Care Team ([facility] st Contact Info) Description 03/01/2025 2:45 PM EDT Clinical Support [facility] CHC MED & PEDS 505 [place] [address] Jeniffer Busby, RN [address] [place], [place] 03/23/2025 9:30 AM EDT Office Visit [facility] MEDICINE [address] [place] [address] Anna Marie Cameron ANP 230 [place] [address] documented as of this encounter Visit Diagnoses Not on filedocumented in this encounter Care Teams Tire Balancer Relationship Specialty Start Date End Date Anna Marie Cameron ANP [address] [place] [address] PCP - General Family Medicine 05/01/20 documented as of this encounter
--- OUTSIDE RECORDS SUMMARY | 2025-02-07 19:14 | XMS_ITS | Encounter Summary ---
Author Organization [employer] Address 75 [facility] 7t [place] [address] Care Team Providers Care Auto Striper Name Role Phone Anna Marie Cameron Primary Care Provider [phone] Reason for Visit * Reason Onset Date Comments Med Refill 10/29/2023 Encounter Details Date Type Department Care Team ([facility] st Contact Info) Description 10/29/2023 Telephone [facility] MEDICINE 230 [place] [address] Anna Marie Cameron ANP 230 [place] [address] Med Refill Social History Tobacco Use Types [...] 03/01/2025 2:45 PM EDT Clinical Support [facility] MED & PEDS [address] [place] [address] Jeniffer Busby, RN 505 [place] [address] 03/23/2025 9:30 AM EDT Office Visit [facility] MEDICINE [address] [place] [address] Anna Marie Cameron ANP [address] [place] [address] documented as of this encounter Visit Diagnoses Not on filedocumented in this encounter Care Teams Auto Striper Relationship Specialty Start Date End Date Anna Marie Cameron ANP [address] [place] [address] PCP - General Family Medicine 05/01/20 documented as of this encounter
--- OUTSIDE RECORDS SUMMARY | 2025-02-07 19:14 | XMS_ITS | Encounter Summary ---
Author Organization [employer] Address 75 [facility] 7t [place] [address] Care Team Providers Care Dedicated Regional Driver Name Role Phone Anna Marie Cameron Primary Care Provider [phone] Reason for Visit * Reason Onset Date Comments Med Refill 09/05/2024 Encounter Details Date Type Department Care Team ([facility] st Contact Info) Description 09/05/2024 Telephone [facility] MEDICINE 230 [place], [place] [phone] Anna Marie Cameron ANP [address] [place] [address] Med Refill Social History Tobacco Use Types [...] the past 12 months, has t he [employer], gas, oil or water company threatened to [...] release tablet To be sent to: [facility]/pharmacy #[id number] [place] [address] - [address] [place] [address] documented in this encounter Plan of Treatment Upcoming Encounters Date Type Department Care Team (Late st Contact Info) Description 03/01/2025 2:45 PM EDT Clinical Support [facility] CHC MED & PEDS 505 [place] [address] Jeniffer Busby, JORDAN 505 [place] [address] 03/23/2025 9:30 AM EDT Office Visit [facility] MEDICINE 230 [place] [address] Anna Marie Cameron ANP [address] [place] [address] documented as of this encounter Visit Diagnoses Not on filedocumented in this encounter Additional Health Concerns Assessment Noted Time PHQ-9 Depression Total Score: 0 03/10/20 24 9:49 AM EDT documented as of this encounter Care Teams Dedicated Regional Driver Relationship Specialty Start Date End Date Anna Marie Cameron ANP [address] [place] [address] PCP - General Family Medicine 05/01/20 documented as of this encounter
--- OUTSIDE RECORDS SUMMARY | 2025-02-07 19:14 | XMS_ITS | Encounter Summary ---
Author Organization [employer] Address 75 [facility] 7t [place] [address] Care Team Providers Care Senior Materials Scientist Name Role Phone Anna Marie Cameron SHILA Primary Care Provider [phone] Reason for Visit * Reason Onset Date Comments Med Refill 01/23/2025 Encounter Details Date Type Department Care Team ([facility] st Contact Info) Description 01/23/2025 Refill [facility] CHC MED & PEDS [address] [place] [address] Jeniffer Busby, JORDAN 505 [place] [address] Chronic pain of both hips Social History [...] Description 03/01/2025 2:45 PM EDT Clinical Support [facility] CHC MED & PEDS [address] [place] [address] Jeniffer Busby, JORDAN 505 [place] [address] 03/23/2025 9:30 AM EDT Office Visit [facility] MEDICINE [address] [place] [address] Anna Marie Cameron ANP 230 [place] [address] documented as of this encounter Visit Diagnoses Diagnosis Chronic pain of both hips documented in this encounter Additional Health Concerns Assessment Noted Time PHQ-9 Depression Total Score: 0 03/10/20 24 9:49 AM EDT documented as of this encounter Care Teams Senior Materials Scientist Relationship Specialty Start Date End Date Anna Marie Cameron ANP [address] [place] [address] PCP - General Family Medicine 05/01/20 documented as of this encounter
== END ==
LOC: HO.CARD 15:24
DX: I49.3 Ventricular premature depolarization (principal)
CPT/HCPCS: 93242

== ENCOUNTER → 2025-02-07 15:33 | Outpatient (BNV) | payer OTHER, SELFPAY | PROVIDERS: Visit Provider Internal Medicine | DX: I47.10 Supraventricular tachycardia, unspecified (principal) | CPT/HCPCS: 93244 ==

== ENCOUNTER 2025-06-22 13:08 | Outpatient (AMB) | payer OTHER, SELFPAY ==
--- OUTSIDE RECORDS SUMMARY | 2025-06-22 13:12 | XMS_ITS | Clinical Summary ---
Author Organization [facility] Address [address] [place] [address] Phone Care Team Providers Care Solvent Plant Operator Name Role Phone Rakesh Anna Marie FUCHS Primary Care Provider [phone] Allergies No known active allergies Medications varenicline (CHANTIX) 1 mg tablet Take 1 mg by mouth 2 (two) times a day. Take with meals and with a full glass of water. Active loratadine (CLARITIN) 10 mg tablet Take 10 mg by mouth daily as needed for allergies. Active ascorbic acid, vitamin C, (VITAMIN C) 250 mg Chew Take by mouth daily. Active oybjyam-utdh-at sim-zabg-wsvkfg 100 mg-150 mg- 50 mg-150 mg Cap Take by mouth. Activ e Medication-Free Text Osteobiflex Active acetaminophen (TYLENOL) 500 MG tablet Take 2 tablets (1,000 mg total) by mouth every 8 (eight) hours. 1 Active aspirin 81 MG EC tablet Take 1 tablet (81 mg total) by mouth 2 (two) times a day. 60 tablet 1 Active docusate sodium (COLACE) 100 MG capsule Take 1 capsule (100 mg total) by mouth 2 (two) times a day as needed for constipation. 1 Active celecoxib (CELEBREX) 100 MG capsule Take 1 capsule (100 mg total) by mouth 2 (two) times a day for 14 days. 28 capsule 1 Active oxyCODONE 5 MG immediate release tablet Take 1 tablet (5 mg total) by mouth every 8 (eight) hours as needed for moderate pain. Partial fill ok. Take smallest effective dose. 20 tablet Active Active Problems Problem Noted Date Diagnosed Date Status post total hip replacement, left 05/27/20 21 Tobacco abuse 04/09/2021 Assessment & Plan (04/09/2021 1:08 PM EDT): The patient has been very forthcoming with Ortho and the clinic. He is gone from 2 packs a day down to about 6 cigarettes a day. He is using Chantix and has a quit date of April 16. He understands that he needs to be off of tobacco for 1month before surgery. He understands will likely get repeat screening for cotinine and nicotine prior, and knows why it is important that he stop smoking for general health and more acutely, his healing postoperatively. His partner will try to quit on the first as well. Abnormal EKG 04/09/2021 Assessment & Plan (04/09/2021 1:20 PM EDT): As above he has localized ST depressions in 3 and aVF without prior EKGs. There is no other findings of prior ischemia. Curbside with cardiology recommends an echo, if normal no further work-up is needed. If abnormal will likely need referral to cardiology for further evaluation prior to surgery. Resolved Problems Problem Noted Date Diagnosed Date Resolved Date Preop examination 04/09/2021 07/09/2021 Assessment & Plan (04/09/2021 1:06 PM EDT): This is a 46-year-old patient of Anna Marie Cameron NP at [facility] and Dr. Melo for planned left hip replacement on May 27. The patient's risk factor scores are as follows. He has some sleep apnea symptoms but has never formally been studied. It is suggested that he reach out to his PCP to get that done in the near future. He will need to be observed for apnea in the PACU. His Coleman cardiovascular risk score is 0.1 % chance of cardiovascular event in the perioperative period of first 30 days. His RCRI score is 0.4% risk of cardiovascular event including arrhythmia and CHF, this is a very low risk score on the scale. His NSQIP score is congruent at 0.1% risk of cardiovascular event perioperatively. His preop blood work on February 21 showed an unremarkable BMP, hemoglobin A1c of 5.6, and unremarkable CBC. His EKG shows a normal sinus rhythm with T wave abnormality in leads III and aVF. While he has no symptoms of acute ischemia, the findings are significant and the patient is certain he has not had a prior EKG that we could use to compare to. This was discussed curbside with cardiology who recommended an echocardiogram to make sure there are no structural abnormalities or evidence for prior infarct. If it is unremarkable he should proceed to the OR. If there are findings he may need further work-up with cardiology before going to the OR. He should have standard DVT and antibiotic prophylaxis. He has been advised to stop snnq-wlk-owrbytz medications and supplements as well as his ibuprofen 1 week prior to surgery. His other medications can continue. Family History Medical History Relation Comments No Known Problems Brother 1 No Known Problems Brother 2 No Known Problems Brother 3 No Known Problems Daughter Asthma Mother No Known Problems Sister 1 No Known Problems Sister 2 No Known Problems Son Relation Status Comments Brother 1 Alive Brother 2 Alive Brother 3 Alive Daughter Alive Father Alive Mother Alive Sister 1 Alive Sister 2 Alive Son Alive Social History Tobacco Use Types Packs/Day Years Used Date Smoking Tobacco: Former Cigarettes 2 30 0 04/27/1991 - 04/27/2021 Smokeless Tobacco: Never Tobacco Cessation:Ready to Q uit: Yes; Counseling Given: Yes Alcohol Use Standard Drinks/Week Comments Yes 2 (1 standard drink = 0.6 oz pur e alcohol) Education Answer Date Recorded Are you interested in more education? Not on oj e 03/13/2023 Are you concerned about learning? Not on file 03/13/2023 No 03/13/2023 No 03/13/2023 Digital Access Answer Date Recorded No 04/11/2023 No 04/11/2023 Reliable internet access at home? Not on file 04/11/2023 Device with a working camera? Not on file Sex and Gender Information Value Date Recorded Sex Assigned at Not on file Legal Sex Male 10:11 AM EST Gender Identity Not on file Sexual Orientation Not on file Last Filed Vital Signs Vital Sign Reading Time Taken Comments Blood Pressure 130/60 06/17/2021 2:30 PM EDT Pulse 70 06/17/2021 2:30 PM EDT Temperature 36.7 C (98.1 F) 06/13/2021 2:54 PM EDT Respiratory Rate 16 06/17/2021 2:30 PM EDT Oxygen Saturation 96% 06/17/2021 2:30 PM EDT Inhaled Oxygen Concentration - - Weight 106.6 kg (235 lb) 05/27/2021 6:25 AM EDT Height 180.3 cm (5' 11 ) 05/27/2021 6:25 AM EDT Body Mass Index 32.78 05/27/2021 6:25 AM EDT Plan of Treatment Health Maintenance Due Date Last Done Comments LIPID PANEL 1977 DEPRESSION SCREENING 1989 SMOKING Hx and SMOKELESS TOBACCO SCREENING 1990 HEPATITIS C SCREENING 1995 HIV ONE-TIME SCREENING (18-6 5 YEARS) 1995 COLOGUARD 2022 COLONOSCOPY 2022 COLORECTAL CANCER SCREENING 2022 FIT TEST 2022 FOBT 2022 SIGMOIDOSCOPY 2022 VIRTUAL COLONOSCOPY 2022 COVID-19 VACCINE (3 - 2023-2 5 season) 2024 03/25/2021, 02/25/2021 Adult Td,Tdap Booster 11/14/2029 11/14/2019 HEPATITIS A VACCINES Aged Out No long er eligible based on patient's age to complete this topic HIB VACCINES Aged Out No longer eligi ble based on patient's age to complete this topic MENINGOCOCCAL VACCINES (ACWY) Aged Out No longer eligible based on patient's age to complete this topic MENINGOCOCCAL VACCINES (B) Aged Out N o longer eligible based on patient's age to complete this topic PNEUMOCOCCAL VACCINES (0-49 years) Aged Out No longer eligible b ased on patient's age to complete this topic Medical Devices Implanted Type Area Vp Global Device Identifier Shelf Expiration Date Model / Serial / Lot Acetabular Shell 54mm Size F G7 Porous Plasma [employer] [place] [employer] Hole - [id number] Implanted:Qty: 1 on 05/27/2021 by Morgan Melo MD at [facility] Left: Acetabulum [employer] 09/06/2030 [id number] / / [id number] Hip Stem [id number] 130deg Bi Metric Full Imal Profile Lateralized Alloy Porous Plasma Sprayed Titanium - [id number] Implanted:Qty: 1 on 05/27/2021 by Morgan Melo MD at [facility] Left: Acetabulum [employer] 02/14/2029 [id number] / / [id number] Hip Liner 36mm F Acetabular Neutral G7 Longevity - [id number] Implanted:Qty: 1 on 05/27/2021 by Morgan Melo MD at [facility] Left: Acetabulum DANY / [employer] 02/13/[id number] / / [id number] Hip Head 1 36mm Minus 3 Implant Femoral Hd Modular [place] 05 - [id number] Implanted:Qty: 1 on 05/27/2021 by Morgan Melo MD at [facility] Left: Acetabulum [employer] 04/16/2031 [id number] / / [id number] Insurance C3 ACO C3 ACO C3 ACO C3 ACO C3 ACO C3 ACO C3 ACO C3 ACO [facility] C3 ACO Advance Directives For more information, please contact: [phone] (9AM - 5PM [facility], Thursday-Thursday) Documents on File Type Date Recorded Patient Strategic Sourcing Consultant Expl anation Healthcare Proxy 05/29/2021 3:17 PM * Full Code (Latest Code Status on File) Date Activated Date Inactivated Comments 05/27/2021 6:16 AM Question Answer Comments Code Status Confirmed With: Patient Care Teams Solvent Plant Operator Relationship Specialty Start Date End Date Anna Marie Cameron ANP [address] [place] [id number] PCP - General Family Medicine 11/27/20 Additional Source Comments The information contained in this document represents components of the legal health record. It is not the complete legal health record.[facility]
--- OUTSIDE RECORDS SUMMARY | 2025-06-22 13:12 | XMS_ITS | Clinical Summary ---
Author Organization [facility] Address [address] [place] [address] Phone Care Team Providers Care Validation Architect Name Role Phone Anna Marie Cameron JEAN PAUL Primary Care Provider [phone] Encounters Date Type Department Care Team Description 04/17/2025 2:30 PM EDT Office Visit Orthopedic Surgery [facility] [address] [address] Buck Maldonado, DPM Acquired hallux valgus of left foot (Primary Dx); Follow-up exam; Plantar fascial fibromatosis; Equinus contracture of ankle; Acquired hallux valgus of right foot from Last 3 Months Social History Tobacco Use Types Packs/Day Years Used Date Smoking Tobacco: Never Assessed Sex and Gender Information Value Date Recorded Sex Assigned at Not on file Legal Sex Male 2:05 PM EST Gender Identity Not on file Sexual Orientation Not on file Last Filed Vital Signs Vital Sign Reading Time Taken Comments Blood Pressure - - Pulse - - Temperature - - Respiratory Rate - - Oxygen Saturation - - Inhaled Oxygen Concentration - - Weight 105 kg (232 lb) 03/08/2025 3:02 PM EDT Height 180.3 cm (5' 11 ) 03/08/2025 3:02 PM EDT Body Mass Index 32.36 03/08/2025 3:02 PM EDT Plan of Treatment Health Maintenance Due Date Last Done Comments Hepatitis B Vaccines (3 of 3 - 19+ 3-dose series) 04/10/2020 11/14/2019, 10/11/2019 COVID-19 Vaccine ( season) 2024 09/15/2022, 10/22/2021, 03/25/2021, Additional history exists Depression Screening 11/16/2024 Colorectal Cancer Screening: Colonoscopy 01/03/2025 Social Influencers of Health Screening 01/03/2025 Hypertension/CHF/CAD Annual BMP Blood Test 03/08/2025 07/17/2000 Influenza Vaccine (#1) 2025 2, 11/11/2021, 10/11/2019, Additional history exists Cholesterol Screening (Lipid Panel) 10/04/2029 10/04/2024 DTaP,Tdap,and Td Vaccines (2 - Td or Tdap) 11/14/2029 11/14/2019 Pneumococcal Vaccine: Pediatrics (0 to 5 Years) and At-Risk Patients (6 to 49 Years) Aged Out 03/10/2024 No longer eligible based on patient's age to complete this topic HIV Screening Completed 10/04/2024 Hepatitis C Screening [...] age to complete this topic Meningococcal B Vaccine Aged Out No l onger eligible based on patient's age to complete this topic RSV Immunization Patients Under 20 months Aged Out No longer eligible based on patient's age to complete this topic Varicella Vaccines Aged Out No longer eligible based on patient's age to complete this topic Procedures Procedure Name Priority Date/Time Associated Diagnosis Comments XR FOOT 3+ VIEWS BILAT Routine 04/17/2025 2:44 PM EDT Follow-up exam INJECTION TENDON OR LIGAMENT Routine 04/17/2025 2:30 PM EDT Plantar fascial fibromatosis ANNUAL BMP BLOOD TEST Routine 07/17/2000 from Last 3 Months or Most Recently Relevant to Health Maintenance Results * XR Foot 3+ Views bilat (04/17/2025 2:44 PM EDT) Anatomical Region Laterality Modality Lower Extremities, Foot Bilateral Computed Radiography Narrative 04/17/2025 5:45 PM EDT Right foot 3 views No fracture. No radiopaque foreign joint spaces normal Arthritis mild moderate severe bunion deformity Foot position Pes planus with Talus navicular uncovering decreased calcaneal inclination anterior displaced symes line talus navicular joint to calcaneal cuboid joint Left foot 3 views No fracture. No radiopaque foreign joint spaces normal Arthritis mild moderate severe bunion deformity Foot position Pes planus with Talus navicular uncovering decreased calcaneal inclination anterior displaced symes line talus navicular joint to calcaneal cuboid joint Buck Maldonado DPM IMG XR PROCEDURES Final R esult * Injection tendon or ligament (04/17/2025 2:30 PM EDT) Narrative Buck Maldonado DPM - 04/17/2025 2:30 PM EDT Buck Maldonado DPM 04/17/2025 5:46 PM Injection tendon or ligament Indications: pain Details: 25 G needle Medications: 0.5 mL lidocaine (PF) 1 %; 20 mg triamcinolone acetonide 40 mg/mL Informed Consent: Site: Foot ligament tendon Buck Maldonado DPM IN CLINIC/BEDSIDE ORDERAB LES Final Result * Annual BMP Blood Test (07/17/2000) Annual BMP Blood Test Abstracted Historical Provider HEALTH MAINTENANCE Final Result from Last 3 Months or Most Recently Relevant to Health Maintenance Insurance , [address] [place] [address] PUBLIC PLANS Care Teams Validation Architect Relationship Specialty Start Date End Date Anna Marie Cameron NP [address] [place] [address] [place] [address] PCP - General 01/03/25
--- OUTSIDE RECORDS SUMMARY | 2025-06-22 13:12 | XMS_ITS | Patient Health Record ---
Author Organization [facility] Address [address] [place] [address] Care Team Providers Care Building Construction Superintendent Name Role Phone GUSTAVO GARG N.P. Primary Care Provider Harry Webber [phone] Reason For Referral No Information Encounters Encounter Location Date Provider Diagnosis [facility] [address] [place] [address] 04/18/2025 Harry Baldwin Plan Of Treatment No Information Insurance Providers Payer Name Payer Address Payer Phone Subscriber Number Group Number Insured Name Patient Relationship to Insured Coverage Start Date Coverage End Date [facility] [address] [place] [address] [phone] [id number] LEAH QUILES Self - patient is the insured
--- OUTSIDE RECORDS SUMMARY | 2025-06-22 13:12 | XMS_ITS | Encounter Summary ---
Author Organization [employer] Address [address] [facility] [address] [place] [address] Care Team Providers Care Avionics Shop Supervisor Name Role Phone Anna Marie Cameron Primary Care Provider [phone] Reason for Visit * Reason Onset Date Comments Med Refill 03/13/2023 Encounter Details Date Type Department Care Team ([facility] [address] Contact Info) Description 03/13/2023 Telephone [facility] MEDICINE [address] [place] [address] Anna Marie Cameron ANP [address] [place] [address] Med Refill Social History Tobacco Use Types [...] Upcoming Encounters Date Type Department Care Team ([facility] [address] Contact Info) Description 06/26/2025 3:00 PM EDT Office Visit [facility] MEDICINE [address] [place] [address] Anna Marie Cameron ANP [address] [place] [address] 07/12/2025 2:45 PM EDT Clinical Support [facility] PEDS [address] [place] [address] Jeniffer Busby, RN [address] [place] [address] documented as of this encounter Visit Diagnoses Not on filedocumented in this encounter Care Teams Avionics Shop Supervisor Relationship Specialty Start Date End Date Anna Marie Cameron ANP [address] [place] [address] PCP - General Family Medicine 05/01/20 documented as of this encounter
[2025-06-22 13:33] VITALS: BP 126/80; PULSE 87; TEMP 36.8; O2SAT 96; BMI 32.0
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
== END 2025-06-22 14:14 | disposition home or self-care (01) ==
PROVIDERS: Visit Provider Nurse Practitioner Family
DX: S91.331A Puncture wound without foreign body, right foot, initial encounter (principal); W55.81XA Bitten by other mammals, initial encounter

== ENCOUNTER → 2025-06-22 13:08 | Outpatient (BNVA) | payer OTHER, SELFPAY | PROVIDERS: Visit Provider Nurse Practitioner Family | DX: S91.351A Open bite, right foot, initial encounter (principal); W55.81XA Bitten by other mammals, initial encounter; Y93.9 Activity, unspecified; Y92.9 Unspecified place or not applicable; Y99.9 Unspecified external cause status | CPT/HCPCS: 99212 ==

== ENCOUNTER 2025-06-22 14:32 | Emergency (ER) | payer OTHER, SELFPAY ==
[2025-06-22 14:56] VITALS: BP 134/77; PULSE 75; RESP 16; TEMP 36.4; O2SAT 99; BMI 31.9
--- NOTE | 2025-06-22 15:00 | ED.ANIMALBIT ---
HPI - Animal Bite General Chief Complaint: Animal Bite Stated Complaint: bat bite Time Seen by Provider: 06/22/25 15:58 History of Present Illness ED Provider: lonnie HPI narrative: 50 M p/w exposure to live bat that got brought in by his cat. It bit him on the foot. Related Data Home Medications ?Medication ?Instructions ?Recorded ?Confirmed oxycodone 5 mg capsule 5 mg PO BID PRN Pain 11/19/20 12/21/24 ibuprofen 800 mg tablet 800 mg PO Q8H 01/01/21 12/21/24 atorvastatin 20 mg tablet 20 mg PO BEDTIME 12/21/24 12/21/24 Previous Rx's ?Medication ?Instructions ?Recorded omeprazole 20 mg capsule,delayed 20 mg PO DAILY #30 caps 03/21/21 release amoxicillin 875 mg-potassium 1 tab PO BID 7 days #14 tabs 06/22/25 clavulanate 125 mg tablet Allergies Allergy/AdvReac Type Severity Reaction Status Date / Time No Known Allergies (No Known Allergy Verified 06/22/25 14:58 Allergies*) [facility] Past Medical History Medical History (Updated 06/23/25 @ 00:00 by Emil Musa) Bat bite wound History of opioid abuse High blood pressure Leukocytosis Abdominal pain Spondylosis without myelopathy or radiculopathy, lumbar region Rectal bleeding Encounter for screening colonoscopy Disc degeneration, lumbar Left hip pain Right lumbar radiculopathy Primary osteoarthritis of right hip Surgical History History of repair of right rotator cuff Family History Family History Mother No problems noted. 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 No apparent distress. Alert. HEAD/NECK: No visual trauma. EYES: Normal to inspection. No conjunctival erythema. No discharge. ENMT: Hearing grossly normal. External nose normal. RESPIRATORY: Respiratory effort normal. CARDIOVASCULAR: Additional details (Grossly well perfused). SKIN: No jaundice. Puncture wound right medial distal big toe no erythema NEUROLOGICAL: Alert. Moving all extremities x4. Additional details (No gross motor deficits. Normal tone. ). PSYCHIATRIC: Alert. Appearance appropriate for situation. Vital Signs: Vital Signs - 24 hr 06/22/25 14:56 06/22/25 16:50 Temperature 97.5 F 0 F L Pulse Rate 75 76 Respiratory Rate 16 20 Blood Pressure 134/77 00/00 L Pulse Oximetry 99 99 Oxygen Delivery Method Room Air Room Air BMI result Body Mass Index 31.9 Course Course Course Narrative: This is a rapid medical exam performed by Peyton Mckeon NP: Additional HPI, ROS, PE not included below will be deferred to primary provider. Patient is a 50-year-old male presenting to the ED from urgent Care for rabies series after being bit by a bat on his toe yesterday. States that his cat brought a live back into his bed. Tdap up-to-date. Plan: Rabies vaccine and immunoglobulin ordered Medications Administered Discontinued Medications Generic Name Dose Route Start Last Admin Trade Name Freq PRN Reason Stop Dose Admin Rabies Immune Globulin 2,134 unit 06/22/25 15:01 06/22/25 16:18 Rabies Immune Globulin/Pf 900 Unit/3 Ml Vial 20 unit/kg (2134 unit) 06/22/25 15:02 2,134 unit IM Administration ONCE ONE Rabies Vaccine 1 ml 06/22/25 15:01 06/22/25 16:16 Rabies Vaccine (Pcec)/Pf 1 Ml Vial IM 06/22/25 15:02 1 ml .ONCE ONE Administration Medical Decision Making Medical Decision Making MDM Narrative: Medical Decision Making: Bat exposure with bite to the foot over 24 hours ago. No infectious symptoms. Bat was not captured by animal control. Cat was exposed in the house she has apparently vaccinated per him. No suggestion of cellulitis or infected bite wound. Local infiltration of half of the immunoglobulin rabies dose otherwise we have initiated the rabies vaccine series. Preliminary Favored Differential Diagnosis: Vermilion bite, possible rabies exposure among additional considered etiologies Testing Interpreted Independently: Not Applicable Radiology or Lab testing Results Reviewed: Not Applicable Consults: Not Applicable Independent Historians/External Chart Reviews: Not Applicable Social Determinants of Health Impacting MDM/Planning: Not Applicable Discharge Plan Discharge Clinical Impression: Rabies Patient Disposition: Home, Self-Care Instructions: Rabies (ED) Additional Instructions: Rabies follow up with the [facility] Infusion Center: Upon discharge from the ED today, you will be contacted by the Infusion Center to schedule your follow up Rabies vaccines. You will need a total of 3 more injections. If for some reason you do not receive a call, please call the Infusion Center directly at [phone]. Follow up with your primary care provider after completion of the vaccine to have a titer drawn to ensure the vaccines effectiveness. Prescriptions: New amoxicillin-pot clavulanate 875-125 mg tablet 1 tab PO BID 7 Days Qty: 14 0RF No Action ibuprofen 800 mg tablet 800 mg PO Q8H omeprazole 20 mg capsule,delayed release(DR/EC) 20 mg PO DAILY Qty: 30 5RF oxycodone 5 mg capsule 5 mg PO BID PRN (Reason: Pain) atorvastatin 20 mg tablet 20 mg PO BEDTIME Stand Alone Forms: Work/School Release Interventions: ED Discharge Assessment Last Done: 06/22/25 16:50 Discharge Date/Time: 06/22/25 16:53 Print Language: Tamazight
[2025-06-22] MEDS: Rabies Vaccine (PCEC)/PF 1 ML VIAL IM (16:16)
[2025-06-22] MEDS: Rabies Immune Globulin/PF 900 UNIT/3 ML VIAL 2134 UNIT IM (16:18)
[2025-06-22 16:50] VITALS: BP 00/00; PULSE 76; RESP 20; TEMP -17.7; TEMP 0; O2SAT 99
== END 2025-06-22 16:53 | disposition home or self-care (01) ==
PROVIDERS: Emergency Provider Emergency Medicine; PCP Nurse Practitioner Primary Care
DX: Z20.3 Contact with and (suspected) exposure to rabies (principal); Z23 Encounter for immunization
CPT/HCPCS: 90375; 90471; 90675; 96372; 99284

== ENCOUNTER → 2025-07-06 14:39 | Outpatient (RCR) | payer OTHER, SELFPAY ==
[2025-06-25 09:52] VITALS: BP 146/94; PULSE 85; RESP 16; TEMP 36.8; O2SAT 97
[2025-06-25] MEDS: Rabies Vaccine (PCEC)/PF 1 ML VIAL IM (09:59)
[2025-06-29 09:51] VITALS: BP 147/94; PULSE 89; RESP 16; TEMP 36.2; O2SAT 96
[2025-06-29] MEDS: Rabies Vaccine (PCEC)/PF 1 ML VIAL IM (09:53)
[2025-07-06 14:32] VITALS: BP 133/89; PULSE 88; RESP 16; TEMP 36.5; O2SAT 93
[2025-07-06] MEDS: Rabies Vaccine (PCEC)/PF 1 ML VIAL IM (14:33)
== END | disposition home or self-care (01) ==
LOC: HO.INF 06-25 09:49
PROVIDERS: Visit Provider Registered Nurse Emergency
DX: Z20.3 Contact with and (suspected) exposure to rabies (principal); T14.8XXD Other injury of unspecified body region, subsequent encounter; W64.XXXD Exposure to other animate mechanical forces, subsequent encounter
CPT/HCPCS: 90471; 90675

== ENCOUNTER 2025-09-25 15:02 | Outpatient (REF) | payer OTHER, SELFPAY ==
--- OUTSIDE RECORDS SUMMARY | 2025-09-25 15:30 | XMS_ITS | Encounter Summary ---
Author Organization [employer] Address [address] [place] [address] Care Team Providers Care Patrol Captain Name Role Phone Anna Marie Cameron Primary Care Provider [phone] Encounter Details Date Type Department Care Team (Latest Contact Info) Description 09/25/2025 3:30 PM EST Office Visit [facility] [address] [place] [address] Anna Marie Cameron ANP [address] [place] [address] Essential hypertension (Primary Dx); Smoking trying to quit; Cigarette nicotine dependence without complication; Primary osteoarthritis of right hip; Dyslipidemia; Lumbar radiculitis; Long-term current use of opiate analgesic; Encounter for immunization; Pain in left hip Social History Tobacco Use Types Packs/Day Years Used Date Smoking Tobacco: Former Cigarettes 0 08/15/2025 - 11/16/1990 Passive Smoke Exposure: Current Smokeless Tobacco: Never Tobacco Cessation:Counseling Given: Not Answered Comments:Pt had gotten down to 1/2ppd with name brand chantix, once he started receiving generic, cravings were not being met so usage went back to 1ppd Alcohol Use Standard Drinks/Week Comments Yes 6 (1 standard drink = 0.6 oz pur e alcohol) 2-3 beers a few nights a week Depression Answer Date Recorded Patient Health Questionnaire-9 Score 2 03/23/2025 Patient Health Questionnaire-9 Score 2 03/23/2025 Last PHQ-9: Questionnaire Data Not on file 0 03/23/2025 Housing Stability Answer Date Recorded What is your housing situation today? I have franky wong 03/23/[address] you li ve. Do you have problems with any of the following? None of the above 03/23/2025 Food Insecurity Answer Date Recorded Within the past 12 months, y ou worried that your food would run out before you got money to buy more: Never True 03/23/2025 Within the past 12 months,th e food you bought just didn't last and you didn't have enough money to get more: Never True 06/2025 Transportation Answer Date Recorded In the past 12 months, has l ack of transportation kept you from medical appts, meetings, work or from getting things needed for daily living? No 03/23/2025 Utilities Answer Date Recorded In the past 12 months, has t he electric, gas, oil or water company threatened to shut off services in your home? No 03/23/2025 Depression Answer Date Recorded Patient Health Questionnaire-2 Score 0 03/23/2025 Internet Access Answer Date Recorded Internet Access Q1 Yes 03/23/2025 Internet Access Q2 Not on file 03/23/2025 Sex and Gender Information Value Date Recorded Sex Assigned at Male 09/15/2022 10:32 AM EDT Legal Sex Male 10:32 AM EDT Gender Identity Male 09/15/2022 10:32 AM EDT Sexual Orientation Straight 09/15/2022 10 :32 AM EDT documented as of this encounter Last Filed Vital Signs Vital Sign Reading Time Taken Comments Blood Pressure 120/90 09/25/2025 4:15 PM EST Pulse 85 09/25/2025 3:45 PM EST Temperature 36.3 C (97.3 F) 09/25/2025 3:45 PM EST Respiratory Rate 12 09/25/2025 3:45 PM EST Oxygen Saturation 97% 09/25/2025 3:45 PM EST Inhaled Oxygen Concentration - - Weight 111 kg (244 lb 2 oz) 09/25/2025 3:[address] Height 180.3 cm (5' 11 ) 09/25/2025 3:45 PM EST Body Mass Index 34.05 09/25/2025 3:45 PM EST documented in this encounter Patient Instructions * Patient Instructions* SHILA Cordoba - 09/25/2025 3:30 PM EST Please call [facility] for follow-up: [phone] documented in this encounter Plan of Treatment Upcoming Encounters Date Type Department Care Team (Late st Contact Info) Description 11/27/2025 3:00 PM EST Telemedicine [facility] [address] [place] [address] Jeniffer Busby, RN [address] [place] [address] documented as of this encounter Visit Diagnoses Diagnosis Essential hypertension- Primary Unspecified essential hypertension Smoking trying to quit Cigarette nicotine dependence without complication Primary osteoarthritis of right hip Dyslipidemia Other and unspecified hyperlipidemia Lumbar radiculitis Long-term current use of opiate analgesic Encounter for long-term (current) use of other medications Encounter for immunization Pain in left hip documented in this encounter Additional Health Concerns Assessment Noted Time PHQ-9 Depression Total Score: 2 03/23/20 25 9:52 AM EDT documented as of this encounter Care Teams Patrol Captain Relationship Specialty Start Date End Date Anna Marie Cameron ANP [address] [place] [id number] PCP - General Family Medicine 05/01/20 documented as of this encounter
[2025-09-25 15:59] LABS: MANUAL DIFF FLAG NO
[2025-09-25 16:08] LABS: Hematocrit 39.5 % (42.0-52.0); Hemoglobin 12.8 g/dl (14.0-18.0); Imm Gran Abs Auto 0.06 X10*3/uL (0.00-0.03); Imm Gran Pct Auto 0.6 % (0.0-0.4); Lymphocytes Absolute Auto 2.7 X10*3/uL (1.2-4.9); Mean Corpuscular HGB Conc 32.4 g/dl (31.0-36.0); Mean Corpuscular Hemoglobin 27.5 pg (27.0-33.0); Mean Corpuscular Volume 84.8 fL (80.0-98.0); NRBC Abs Auto 0.000 X10*3/uL (0.0-0.012); NRBC Pct Auto 0.0 /100WBC (0.0-0.2); Platelet Count 319 X10*3/uL (160-400); Red Blood Count 4.66 X10*6/uL (4.60-5.80); White Blood Count 10.2 X10*3/uL (4.8-10.8)
[2025-09-25 16:51] LABS: Anion Gap 16 (12-20); Blood Urea Nitrogen 11 mg/dL (9-16); Calcium 9.5 mg/dL (8.4-10.2); Carbon Dioxide 24 mmol/L (22-29); Chloride 106 mmol/L (96-108); Estimated Glomerular Filt Rate > 60; Iron 117 mcg/dL (45-160); Percent Iron Saturation 37 % (15-50); Potassium 3.5 mmol/L (3.3-5.1); Sodium 142 mmol/L (135-145); Total Iron Binding Capacity 314 mcg/dL (228-428); Unsaturated Iron Binding 197 ug/dL
--- OUTSIDE RECORDS SUMMARY | 2025-09-25 17:15 | XMS_ITS | Encounter Summary ---
Author Organization [employer] Address [address] [facility] 7 [place] [address] Care Team Providers Care Collet Making Machine Operator Name Role Phone Anna Marie Cameron Primary Care Provider [phone] Reason for Visit * Reason Onset Date Comments chart Prep 09/22/2025 Encounter Details Date Type Department Care Team ([facility] st Contact Info) Description 09/22/2025 Telephone [facility] [address] [place] [address] Anna Marie Cameron ANP [address] [place] [address] chart Prep Social History Tobacco Use Types Packs/Day Years Used Date Smoking Tobacco: Every Day Cigarettes Passive Smoke Exposure: Current Smokeless Tobacco: Never Comments:Pt had gotten down [...] encounter Miscellaneous Notes * Telephone Encounter - Tanika Arauz MA - 09/22/2025 9:54 AM EST Chart Prep Labs: not done Patient aware will get done on Thursday Images: done Referrals: complete Vaccines due: Covid, Flu, and Hep B Screenings: colonoscopy Overdue care gaps: Not applicable documented in this encounter Plan of Treatment Upcoming Encounters Date Type Department Care Team ([facility] st Contact Info) Description 11/27/2025 3:00 PM EST Telemedicine [facility] [address] [place] [address] Jeniffer Busby, JORDAN [address] [place] [address] documented as of this encounter Visit Diagnoses Not on filedocumented in this encounter Additional Health Concerns Assessment Noted Time PHQ-9 Depression Total Score: 2 03/23/20 25 9:52 AM EDT documented as of this encounter Care Teams Collet Making Machine Operator Relationship Specialty Start Date End Date Anna Marie Cameron ANP [address] [place] [address] PCP - General Family Medicine 05/01/20 documented as of this encounter
--- OUTSIDE RECORDS SUMMARY | 2025-09-25 17:15 | XMS_ITS | Encounter Summary ---
Author Organization [employer] Address 75 [facility] 7 [place] [address] Care Team Providers Care Pallet Sorter Name Role Phone Anna Marie Cameron Primary Care Provider [phone] Reason for Visit * Reason Onset Date Comments Med Refill 10/03/2024 Encounter Details Date Type Department Care Team ([facility] st Contact Info) Description 10/03/2024 Telephone [facility] [address] [place] [address] Anna Marie Cameron ANP [address] [place] [address] Med Refill Social History Tobacco Use Types [...] release tablet To be sent to: /pharmacy #[id number] [place] [address] - [address] [place] [address] documented in this encounter Plan of Treatment Upcoming Encounters Date Type Department Care Team (Late st Contact Info) Description 11/27/2025 3:00 PM EST Telemedicine [facility] [address] [place] [address] Jeniffer Busby RN [address] [place] [address] documented as of this encounter Visit Diagnoses Not on filedocumented in this encounter Additional Health Concerns Assessment Noted Time PHQ-9 Depression Total Score: 0 03/10/20 24 9:49 AM EDT documented as of this encounter Care Teams Pallet Sorter Relationship Specialty Start Date End Date Anna Marie Cameron ANP [address] [place] [address] PCP - General Family Medicine 05/01/20 documented as of this encounter
--- OUTSIDE RECORDS SUMMARY | 2025-09-25 17:15 | XMS_ITS | Encounter Summary ---
Author Organization [employer] Address 75 [facility] 7 [place] [address] Care Team Providers Care Property Insurance Inspector Name Role Phone Anna Marie Cameron Primary Care Provider [phone] Reason for Visit * Reason Onset Date Comments Med Refill 08/24/2025 Encounter Details Date Type Department Care Team ([facility] st Contact Info) Description 08/24/2025 Telephone [facility] [address] [place] [address] Anna Marie Cameron ANP [address] [place] [address] Med Refill Social History Tobacco Use Types [...] encounter Miscellaneous Notes * Telephone Encounter - Lachelle June - 08/24/2025 12:00 PM EDT TC from pt requesting medication refill. Medications needing refill : oxyCODONE (Roxicodone) 5 MG immediate release tablet To be sent to: [facility]/pharmacy #[address] [place] [address] documented in this encounter Plan of Treatment Upcoming Encounters Date Type Department Care Team (Late st Contact Info) Description 11/27/2025 3:00 PM EST Telemedicine [facility] [address] [place] [address] Jeniffer Busby RN [address] [place] [address] documented as of this encounter Visit Diagnoses Not on filedocumented in this encounter Additional Health Concerns Assessment Noted Time PHQ-9 Depression Total Score: 2 03/23/20 25 9:52 AM EDT documented as of this encounter Care Teams Property Insurance Inspector Relationship Specialty Start Date End Date Anna Marie Cameron ANP [address] [place] [address] PCP - General Family Medicine 05/01/20 documented as of this encounter
--- OUTSIDE RECORDS SUMMARY | 2025-09-25 17:15 | XMS_ITS | Encounter Summary ---
Author Organization [employer] Address [address] [facility] 7 [place] [address] Care Team Providers Care Rug Dyer Name Role Phone Anna Marie Cameron Primary Care Provider [phone] Reason for Visit * Reason Onset Date Comments Med Refill 05/30/2024 Encounter Details Date Type Department Care Team ([facility] st Contact Info) Description 05/30/2024 Telephone [facility] [address] [place] [address] Anna Marie Cameron ANP [address] [place] [address] Med Refill Social History Tobacco Use Types [...] be sent to: [facility]/pharmacy #[id number] [place], [place] - [address] [place] [address] documented in this encounter Plan of Treatment Upcoming Encounters Date Type Department Care Team (Late st Contact Info) Description 11/27/2025 3:00 PM EST Telemedicine [facility] [address] [place], [place] [phone] Jeniffer Busby RN 505 [place], [place] [phone] documented as of this encounter Visit Diagnoses Not on filedocumented in this encounter Additional Health Concerns Assessment Noted Time PHQ-9 Depression Total Score: 0 03/10/20 24 9:49 AM EDT documented as of this encounter Care Teams Rug Dyer Relationship Specialty Start Date End Date Anna Marie Cameron ANP [address] [place] [address] PCP - General Family Medicine 05/01/20 documented as of this encounter
--- OUTSIDE RECORDS SUMMARY | 2025-09-25 17:15 | XMS_ITS | Encounter Summary ---
Author Organization [employer] Address [address] [facility] 7 [place] [address] Care Team Providers Care Speedometer Mechanic Name Role Phone Anna Marie Cameron Primary Care Provider [phone] Reason for Visit * Reason Onset Date Comments Med Refill 10/17/2024 Encounter Details Date Type Department Care Team ([facility] st Contact Info) Description 10/17/2024 Telephone [facility] [address] [place] [address] Anna Marie Cameron ANP [address] [place] [address] Med Refill Social History Tobacco Use Types [...] immediate release tablet To be sent to: [facility]/pharmacy #[id number] [place] [address] - [address] [place] [address] documented in this encounter Plan of Treatment Upcoming Encounters Date Type Department Care Team (Late st Contact Info) Description 11/27/2025 3:00 PM EST Telemedicine [facility] [address] [place] [address] Jeniffer Busby RN 505 [place] [address] documented as of this encounter Visit Diagnoses Not on filedocumented in this encounter Additional Health Concerns Assessment Noted Time PHQ-9 Depression Total Score: 0 03/10/20 24 9:49 AM EDT documented as of this encounter Care Teams Speedometer Mechanic Relationship Specialty Start Date End Date Anna Marie Cameron ANP [address] [place] [address] PCP - General Family Medicine 05/01/20 documented as of this encounter
--- OUTSIDE RECORDS SUMMARY | 2025-09-25 17:15 | XMS_ITS | Encounter Summary ---
Author Organization [employer] Address [address] [facility] 7 [place] [address] Care Team Providers Care Weight Loss Physician Name Role Phone Anna Marie Cameron Primary Care Provider [phone] Reason for Visit * Reason Onset Date Comments Med Refill 04/03/2025 Encounter Details Date Type Department Care Team ([facility] st Contact Info) Description 04/03/2025 Telephone [facility] [address] [place] [address] Anna Marie Cameron ANP [address] [place] [address] Med Refill Social History Tobacco Use Types [...] * Telephone Encounter - Cristina Curry - 04/03/2025 8:21 AM EDT TC from pt requesting medication refill. Medications needing refill : oxyCODONE (Roxicodone) 5 MG immediate release tablet To be sent to: [facility]/pharmacy #[id number] [place] [address] documented in this encounter Plan of Treatment Upcoming Encounters Date Type Department Care Team (Late st Contact Info) Description 11/27/2025 3:00 PM EST Telemedicine [facility] [address] [place] [address] Jeniffer Busby, JORDAN 505 [place] [address] documented as of this encounter Visit Diagnoses Not on filedocumented in this encounter Additional Health Concerns Assessment Noted Time PHQ-9 Depression Total Score: 2 03/23/20 25 9:52 AM EDT documented as of this encounter Care Teams Weight Loss Physician Relationship Specialty Start Date End Date Anna Marie Cameron ANP [address] [place] [address] PCP - General Family Medicine 05/01/20 documented as of this encounter
--- OUTSIDE RECORDS SUMMARY | 2025-09-25 17:15 | XMS_ITS | Encounter Summary ---
Author Organization [employer] Address [address] [facility] 7 [place] [address] Care Team Providers Care Ui Developer Name Role Phone Anna Marie Cameron Primary Care Provider [phone] Reason for Visit * Reason Onset Date Comments Med Refill 09/05/2024 Encounter Details Date Type Department Care Team ([facility] st Contact Info) Description 09/05/2024 Telephone [facility] [address] [place] [address] Anna Marie Cameron ANP [address] [place] [address] Med Refill Social History Tobacco Use Types [...] release tablet To be sent to: [facility]/pharmacy #[id number] [place] [address] - [address] [place] [address] documented in this encounter Plan of Treatment Upcoming Encounters Date Type Department Care Team (Late st Contact Info) Description 11/27/2025 3:00 PM EST Telemedicine [facility] [address] [place], [place] [phone] Jeniffer Busby, JORDAN [address] [place], [place] [phone] documented as of this encounter Visit Diagnoses Not on filedocumented in this encounter Additional Health Concerns Assessment Noted Time PHQ-9 Depression Total Score: 0 03/10/20 24 9:49 AM EDT documented as of this encounter Care Teams Ui Developer Relationship Specialty Start Date End Date Anna Marie Cameron ANP [address] [place] [address] PCP - General Family Medicine 05/01/20 documented as of this encounter
--- OUTSIDE RECORDS SUMMARY | 2025-09-25 17:15 | XMS_ITS | Encounter Summary ---
Author Organization [employer] Address [address] [facility] 7 [place] [address] Care Team Providers Care Sheep Killer Name Role Phone Anna Marie Cameron Primary Care Provider [phone] Reason for Visit * Reason Onset Date Comments Med Refill 09/18/2025 Encounter Details Date Type Department Care Team ([facility] st Contact Info) Description 09/18/2025 Telephone [facility] [address] [place] [address] Anna Marie Cameron ANP [address] [place] [address] Med Refill Social History Tobacco Use Types [...] * Telephone Encounter - Chris Love - 09/25/2025 9:49 AM EST Tc from pt calling back regarding message prior do to early. * Telephone Encounter - Lachelle June - 09/18/2025 9:58 AM EST TC from pt requesting medication refill. Medications needing refill : oxyCODONE (Roxicodone) 5 MG immediate release tablet To be sent to: [facility]/pharmacy #[id number] [place], [place] - [address] [place] [address] documented in this encounter Plan of Treatment Upcoming Encounters Date Type Department Care Team ([facility] st Contact Info) Description 11/27/2025 3:00 PM EST Telemedicine [facility] & [facility] [address] [place] [address] Jeniffer Busby RN [address] [place] [address] documented as of this encounter Visit Diagnoses Not on filedocumented in this encounter Additional Health Concerns Assessment Noted Time PHQ-9 Depression Total Score: 2 03/23/20 25 9:52 AM EDT documented as of this encounter Care Teams Sheep Killer Relationship Specialty Start Date End Date Anna Marie Cameron ANP 230 [place] [address] PCP - General Family Medicine 05/01/20 documented as of this encounter
--- OUTSIDE RECORDS SUMMARY | 2025-09-25 17:15 | XMS_ITS | Encounter Summary ---
Author Organization [employer] Address [address] [place] [address] [address] [address] Care Team Providers Care Metal Base Blocker Name Role Phone Anna Marie Cameron Primary Care Provider [phone] Reason for Visit * Reason Onset Date Comments Med Refill 08/20/2023 Encounter Details Date Type Department Care Team ([facility] st Contact Info) Description 08/20/2023 Telephone [facility] MEDICINE [address] [place] [address] Anna Marie Cameron ANP [address] [place] [address] Med Refill Social History Tobacco Use Types [...] immediate release tablet to be sent to [facility]/pharmacy #[id number] - [place], [place] - [address] [facility] documented in this encounter Plan of Treatment Upcoming Encounters Date Type Department Care Team ([facility] st Contact Info) Description 11/27/2025 3:00 PM EST Telemedicine [facility] MED & PEDS [address] [place] [address] Jeniffer Busby, JORDAN [address] [place] [address] documented as of this encounter Visit Diagnoses Not on filedocumented in this encounter Care Teams Metal Base Blocker Relationship Specialty Start Date End Date Anna Marie Cameron ANP [address] [place] [phone] PCP - General Family Medicine 05/01/20 documented as of this encounter
--- OUTSIDE RECORDS SUMMARY | 2025-09-25 17:15 | XMS_ITS | Encounter Summary ---
Author Organization [employer] Address [address] [facility] 7 [place] [address] Care Team Providers Care Tack Puller Name Role Phone Anna Marie Cameron Primary Care Provider [phone] Reason for Visit * Reason Onset Date Comments Med Refill 01/23/2025 Encounter Details Date Type Department Care Team ([facility] st Contact Info) Description 01/23/2025 Telephone [facility]INE [address] [place] [address] Anna Marie Cameron ANP 230 [place] [address] Med Refill Social History Tobacco Use Types [...] immediate release tablet To be sent to: [facility]/pharmacy #[id number] [place] [address] - [address] [place] [address] documented in this encounter Plan of Treatment Upcoming Encounters Date Type Department Care Team (Late st Contact Info) Description 11/27/2025 3:00 PM EST Telemedicine [facility] MED & PEDS 505 [place], [place] [phone] Jeniffer Busby, JORDAN [address] [place], [place] [phone] documented as of this encounter Visit Diagnoses Not on filedocumented in this encounter Additional Health Concerns Assessment Noted Time PHQ-9 Depression Total Score: 0 03/10/20 24 9:49 AM EDT documented as of this encounter Care Teams Tack Puller Relationship Specialty Start Date End Date Anna Marie Cameron ANP [address] [place] [phone] PCP - General Family Medicine 05/01/20 documented as of this encounter
--- OUTSIDE RECORDS SUMMARY | 2025-09-25 17:15 | XMS_ITS | Clinical Summary ---
Author Organization [employer] Address 75 [facility] 7 [place] [address] Care Team Providers Care Computer Programmer Chief Name Role Phone Anna Marie Cameron SHILA Primary Care Provider [phone] Allergies No known active allergies Medications nicotine (Nicoderm, Step 1) 21 MG/24HR patch Place 1 patch on the skin at bed time. 022 Active senna (Senokot) 8.6 MG tabletIndication s:Constipation, unspecified constipation type Take 1-2 tablets at bedtime as needed for constipation 120 tablet 022 Active Calcium Polycarbophil (fiber) 625 MG tabletIndication s:Constipation, unspecified constipation type Take 2 tablets by mouth with 8oz of water, start with once daily, can increase as tolerated up to TID 180 tablet 3 023 Active lidocaine (Lidoderm) 5 % patchIndications :Right hip pain Apply 1 patch topically Once per day. Remove & discard patch within 12 hours or as directed by MD. 30 patch 2 024 Active Blood Pressure kitIndications:E ssential hypertension 1 each 2 times daily. 1 kit 025 2025 Active nicotine polacrilex (Nicorette Mini) 4 MG lozengeIndicatio ns:Smoking Dissolve 1 lozenge (4 mg) in the mouth every 2 (two) hours if needed for smoking cessation. 100 lozenge 11 025 Active atorvastatin (Lipitor) 20 MG tabletIndication s:Dyslipidemia TAKE 1 TABLET BY MOUTH EVERY DAY 90 tablet 1 025 Active omeprazole (PriLOSEC) [address] capsule TAKE 1 CAPSULE BY MOUTH EVERY DAY BEFORE A MEAL 90 capsule 1 Active varenicline (Chantix) 0.5 MG tabletIndication s:Smoking trying to quit,Cigarette nicotine dependence without complication Take 0.5 mg PO once daily on Days 1 through 3, then 0.5 mg PO twice daily on Days 4 through 7, then start 1mg twice daily prescription; take with full glass of water 11 tablet Active naloxone (Narcan) 4 mg/0.1 mL nasal spray Administer 1 spray (4 mg) into affected nostril(s) if needed for opioid reversal. 2 each 1 Active varenicline (Chantix) 1 MG tabletIndication s:Smoking trying to quit,Cigarette nicotine dependence without complication TAKE 1 TABLET BY MOUTH TWICE A DAY WITH A FULL GLASS OF WATER AFTER INITIAL 7 DAY SCRIPT 56 tablet 2 Active oxyCODONE (Roxicodone) 5 MG immediate release tabletIndication s:Chronic pain of both hips May take 2 tablets (10 mg) by mouth every 12 (twelve) hours if needed for severe pain. May also take 1 tablet (5 mg) every 12 (twelve) hours if needed for severe pain. Do all this for 28 days. Do not start before September 20, 2025. 84 tablet 025 2024 Active losartan (Cozaar) 50 MG tabletIndication s:Essential hypertension Take 1 tablet (50 mg) by mouth Once per day. 90 tablet 3 025 2025 Active ibuprofen 800 MG tabletIndication s:Pain in left hip Take 1 tab with food every 8 hours as needed for pain 120 tablet 1 025 Active ibuprofen 800 MG tabletIndication s:Pain in left hip TAKE 1 TAB WITH FOOD EVERY 8 HOURS NEEDED FOR PAIN 120 tablet 1 02/06/ 023 2024 Discontinued(R eorder (will not trigger notification to Pharmacy)) varenicline (Chantix) 1 MG tabletIndication s:Smoking trying to quit,Cigarette nicotine dependence without complication Take 1 tablet (1 mg) by mouth 2 times daily. Take with full glass of water. Start after initial 7d rx. 60 tablet 2 025 2024 Discontinued losartan (Cozaar) 25 MG tabletIndication s:Essential hypertension Take 1 tablet (25 mg) by mouth Once per day. 90 tablet 1 025 2024 Discontinued(R eorder (will not trigger notification to Pharmacy)) oxyCODONE (Roxicodone) 5 MG immediate release tabletIndication s:Chronic pain of both hips May take 2 tablets (10 mg) by mouth every 12 (twelve) hours if needed for severe pain. May also take 1 tablet (5 mg) every 12 (twelve) hours if needed for severe pain. Do all this for 28 days. 84 tablet 025 2024 Discontinued(R eorder (will not trigger notification to Pharmacy)) Active Problems Problem Noted Date Diagnosed Date Smoking trying to quit 03/23/2025 Elevated blood pressure read ing without diagnosis of hypertension 03/23/2025 Long-term current use of opiate analgesic 2024 Right hip pain 10/03/2024 Assessment & Plan [...] by Dr Morgan Melo-Sports medicine physician in [place], [place]--I sent today request to referral sp [...] Encounters Date Type Department Care Team Description 09/25/2025 3:30 PM EST Office Visit [facility] [place] [address] Anna Marie Cameron ANP Essential hypertension (Primary Dx); Smoking trying to quit; Cigarette nicotine dependence without complication; Primary osteoarthritis of right hip; Dyslipidemia; Lumbar radiculitis; Long-term current use of opiate analgesic; Encounter for immunization; Pain in left hip 09/25/2025 Results Follow-Up [facility] [address] [place] [phone] Anna Marie Cameron ANP CBC auto differential 09/25/2025 Travel 09/22/[address] [address] Anna Marie Cameron ANP chart Prep 09/18/2025 Refill [facility] MED & PEDS [address] [place] [address] Jeniffer Busby RN Chronic pain of both hips 09/18/2025 Telephone [facility] [address] [place] [phone] Anna Marie Cameron ANP Med Refill 09/17/2025 Refill [facility] [address] [place] [address] Anna Marie Cameron ANP Smoking trying to quit; Cigarette nicotine dependence without complication 09/04/2025 3:00 PM EDT Telemedicine [facility] [address] [place] [address] Jeniffer Busby RN Chronic right shoulder pain 09/04/2025 Travel 08/28/2025 Travel 08/24/[address] [facility] MED & PEDS [address] [place] [address] Jeniffer Busby, thread cutter pain of both hips 08/24/[address] [address] Anna Marie Cameron ANP Med Refill 07/28/2025 Refill [facility] [address] [place] [address] Anna Marie Cameron ANP Chronic pain of both hips 07/20/2025 Telephone [facility] [address] [place] [phone] Anna Marie Cameron ANP r/s 07/12/2025 2:45 PM EDT Clinical Support [facility] MED & PEDS [address] [place] [address] Jeniffer Busby RN Chronic right shoulder pain 07/12/2025 Travel 06/30/2025 9:30 AM EDT Office Visit [address] [address] Anna Marie Cameron ANP Essential hypertension (Primary Dx); Smoking trying to quit; Cigarette nicotine dependence without complication; Nocturnal leg cramps; Right hip pain; Primary osteoarthritis of right hip 06/30/2025 Travel 06/29/[address] [address] Anna Marie Cameron ANP Chart Prep 06/29/[address] [address] Anna Marie Cameron ANP Chronic pain of both hips from Last 3 Months Immunizations Immunization Administration Dates Next Due Hep B, adult 11/14/2019,10/11/2019 Influenza injectable quadriv alent IIV4 with preservative 10/11/2019,10/27/2017 Influenza injectable quadriv alent preservative free 07/28/2022,11/11/2021 Influenza, seasonal, injecta ble, preservative free 09/25/2025 Moderna Covid-19 Vaccine 12+ 10/22/2021,03/25/20 21,02/25/2021 Pneumococcal Conjugate PCV 20 03/10/2024 Rabies - IM Fibroblast Culture ,06/29/2025,06/25/2025,2024 Tdap 11/14/2019 Family History Medical History Relation [...] Mass Index 34.05 09/25/2025 3:45 PM EST Plan of Treatment Upcoming Encounters Date Type Department Care Team (Late st Contact Info) Description 11/27/2025 3:00 PM EST Telemedicine [facility] [address] [place] [address] Jeniffer Busby, RN [address] [place] [address] Health Maintenance Due Date Last Done Comments CT Colonography 1977 Colonoscopy 1977 Colorectal Cancer Screening 1977 FIT DNA/Cologuard 1977 FIT 1977 FOBT 1977 Sigmoidoscopy 1977 Family Planning (PISQ) 02/25/1992 Hepatitis B Vaccines (3 of 3 - 19+ 3-dose series) 04/10/2020 11/14/2019, 10/11/2019 COVID-19 Vaccine ( season) 2025 09/15/2022, 10/22/2021, 03/25/2021, Additional history exists Alcohol/Substance Use Screening 03/23/2026 03/23/2025 Depression Screening 03/23/2026 03/23/2025, 03/23/20 25 SDOH Screening 03/23/2026 03/23/2025 Disability Screening 08/28/2026 08/28/2025 Tobacco Screening 09/25/2026 09/25/2025 Zoster Vaccines (1 of 2) 2027 Lipid Panel 10/04/2029 10/04/2024, 10/16, 03/12/2022, Additional history exists DTaP/Tdap/Td Vaccines (2 - Td or Tdap) 11/14/2029 11/14/2019 RSV Patients and Patients Aged 60 years or older (1 - 1-dose 75+ series) 02/25/2052 Pneumococcal Vaccine: Pediatrics (0 to 5 Years) and At-Risk Patients (6 to 49) Years Aged Out 03/10/2024 No longer eligible based on patient's age to complete this topic HIV Screening Completed 10/04/2024 Hepatitis C Screening Completed 10/04/2024 Influenza Vaccine Completed 09/25/2025, , 11/11/2021, Additional history exists HIB Vaccines Aged Out No longer eligi [...] Procedure Name Priority Date/Time Associated Diagnosis Comments IRON AND TOTAL IRON BINDING CAPACITY Routine 09/25/2025 1:05 PM EST Nocturnal leg cramps CBC WITH AUTO DIFFERENTIAL Routine 09/25/2025 1:05 PM EST Nocturnal leg cramps BASIC METABOLIC PANEL Routine 09/25/2025 1:05 PM EST Essential hypertension POCT SREEKANTH-14 URINE DRUG SCREEN Routine 07/12/2025 3:14 PM EDT Chronic right shoulder pain HEPATITIS C AB [...] Recently Relevant to Health Maintenance Results * (ABNORMAL) CBC auto differential (09/25/2025 1:05 PM EST) White Blood Count 10.2 4.8 - 10.8 X10*3/uL [facility] Red Blood Count 4.66 4.60 - 5.80 X10*6/uL [facility] Hemoglobin 12.8(L) 14.0 - 18.0 g/dl [facility] Hematocrit 39.5(L) 42.0 - 52.0 % [facility] Mean Corpuscular Volume 84.8 80.0 - 98.0 fL [facility] Mean Corpuscular Hemoglobin 27.5 27.0 - 33.0 pg [facility] Mean Corpuscular HGB Conc 32.4 31.0 - 36.0 g/dl [facility] Red Cell Distribution Width 13.8 11.0 - 16.0 % [facility] Platelet Count 319 160 - 400 X10*3/uL [facility] Mean Platelet Volume 10.6 9.4 - 12.4 fL [facility] Neutrophils Percent Auto 63.7 45 - 73 % [facility] Imm Gran Pct Auto 0.6(H) 0.0 - 0.4 % [facility] Lymphocytes Percent Auto 26.2 20 - 40 % [facility] Monocytes Percent Auto 7.3 2 - 11 % [facility] Eosinophils Percent Auto 1.8 0 - 4 % [facility] Basophils Percent Auto 0.4 0 - 2 % [facility] NRBC Pct Auto 0.0 0.0 - 0.2 /100WBC [facility] Neutrophils Absolute Auto 6.5 2.0 - 8.3 x10*3/uL [facility] Imm Gran Abs Auto 0.06(H) 0.00 - 0.03 X10*3/uL [facility] Lymphocytes Absolute Auto 2.7 1.2 - 4.9 X10*3/uL [facility] Monocytes Absolute Auto 0.7 0.1 - 1.2 X10*3/uL [facility] Eosinophils Absolute Auto 0.2 0.0 - 0.4 X10*3/uL [facility] Basophils Absolute Auto 0.0 0.0 - 0.2 X10*3/uL [facility] NRBC Abs Auto 0.000 0.0 - 0.012 X10*3/uL [facility] Blood Venous blood specimen / Unknown 09/25/2025 1:05 PM EST 09/25/2025 3:54 PM EST Anna Marie Cameron [facility] LAB BLOOD ORDERABLES Final Resul t Performing Organization Address City/[facility]/ZIP Co de Phone Number [facility] [address] [place] [phone] * Iron And Total Iron Binding Capacity (09/25/2025 1:05 PM EST) [facility] Iron 117 45 - 160 mcg/dL [facility] Total Iron Binding Capacity 314 228 - 428 mcg/dL [facility] Percent Iron Saturation 37 15 - 50 % [facility] Unsaturated Iron Binding 197 ug/dL [facility] Blood Venous blood specimen / Unknown 09/25/2025 1:05 PM EST 09/25/2025 3:54 PM EST Anna Marie Cameron ANP LAB BLOOD ORDERABLES Final Resul t Performing Organization Address City/[facility]/ZIP Co de Phone Number [facility] [address] [place] [phone] * Basic Metabolic Panel (09/25/2025 1:05 PM EST) Sodium 142 135 - 145 mmol/L [facility] Potassium 3.5 3.3 - 5.1 mmol/L [facility] Chloride 106 96 - 108 mmol/L [facility] Carbon Dioxide 24 22 - 29 mmol/L [facility] Anion Gap 16 12 - 20 [facility] Urea Nitrogen (BUN) 11 9 - 16 mg/dL [facility] Creatinine, Serum 0.86 0.5 - 1.4 mg/dL [facility] Estimated Glomerular Filt Rate >60 [facility] Comment:Chronic Kidney Disea se: Estimated GFR < 60 mL/min/1.17f2Ffhayn Kidney Disease: Estimated GFR < 15 mL/min/1.73m2 Glucose 96 60 - 115 mg/dL [facility] Calcium 9.5 8.4 - 10.2 mg/dL [facility] Blood Venous blood specimen / Unknown 09/25/2025 1:05 PM EST 09/25/2025 3:54 PM EST Anna Marie Cameron [facility] BLOOD ORDERABLES Final Resul t [facility] [address] [place], [place] [phone] * (ABNORMAL) POCT SREEKANTH-14 Urine Drug Screen (07/12/2025 3:14 PM EDT) THC Positive(A) Negative Cocaine Screen, Urine Negative Negative Opiate Screen, Urine Negative Negative Methamphetamine Screen Urine Negative Negative Amphetamine Screen, Urine Negative Negative Benzodiazepines Screen, Urine Negative Negative Barbiturate Screen, Urine Negative Negative Methadone Screen, Urine Negative Negative Buprenophine Screen, Urine Negative Negative TCA, Urine Negative Negative MDMA Urine Negative Negative ng/mL Oxycodone Screen, Urine Positive(A) Negative Phencyclidine (PCP), Urine Negative Negative Propoxyphene, Urine Negative Negative Fentanyl, Urine Negative Negative Urine Urine specimen obtained by clean catch procedure / Unknown 07/12/2025 3:14 PM EDT Narrative Jeniffer Busby RN - 07/12/2025 3:14 PM EDT Internal Pass Control Lot# [id number] Exp: 09-15-26 us Anna Marie Cameron [facility] POINT OF CARE TEST ENTER/EDIT OR DERABLES Final Result * Hepatitis C Antibody with Reflex to HCV, RNA, Quantitative, Real-Time PCR (10/04/2024 10:00 AM EST) Hepatitis C Antibody Nonreactive Nonreactive [facility] Comment:Antibodies to HCV no t detected; does not exclude early acuteHCV infection. Blood Venous blood specimen / Unknown 10/04/2024 10:00 AM EST 10/04/2024 10:00 AM EST us Anna Marie Cameron [facility] LAB BLOOD ORDERABLES Final Resul t [facility] [address] [place] [phone] * HIV-1/2 Antigen and Antibodies, Fourth Generation, with Reflexes (10/04/2024 10:00 AM EST) HIV AB/AG Nonreactive Nonreactive [facility] Comment:HIV-1 p24 Ag and/or HIV-1/HIV-2 Ab not detected.A test result that is nonreactive does not exclude thepossibility of exposure to or infection with HIV-1 and/orHIV-2. Nonreactive results in this assay for individualswith prior exposure to HIV-1 and/or HIV-2 may be due toantigen and antibody levels that are below the limit ofdetection of this assay.The [employer] HIV Ag/Ab Combo assay result andsupplemental assay results should be interpreted inconjunction with the patient's clinical presentation,history and other laboratory results. If the results areinconsistent with clinical evidence, additional testing issuggested to confirm the result. Blood Venous blood specimen / Unknown 10/04/2024 10:00 AM EST 10/04/2024 10:00 AM EST us Anna Marie Cameron ANP LAB BLOOD ORDERABLES Final Resul t Performing Organization Address [facility] de Phone Number [facility] [address] [place] [address] [phone] * (ABNORMAL) Lipid Panel, Standard (10/04/2024 10:00 AM EST) Triglycerides 148 <150 mg/dL [facility] Comment:Desirable Triglyceri de: less than 150 mg/dLBorderline High Triglyceride 150-199 mg/dLHigh Triglyceride: 200-499 mg/dLVery High Triglyceride: greater than or equal to 5OO mg/dL Cholesterol 176 <200 mg/dL [facility] Comment:Desirable Cholestero l: less than 200 mg/dLBorderline High Cholesterol: 200-239 mg/dLHigh Cholesterol: greater than 239 mg/dL LDL Cholesterol Calculated 101(H) <100 mg/dL [facility] Comment:Desirable LDL: less than 100 mg/dLNear Optimal/Above Optimal LDL: 110- 129 mg/dLBorderline High LDL: 130-159 mg/dLHigh LDL: 160-189 mg/dLVery High LDL: greater than or equal to 190 mg/dL HDL Cholesterol 46 >40 mg/dL [facility] Comment:Desirable HDL: great er than 40 mg/dL Note: This HDL assay may give artificially low results in patients with liver disease. Blood Venous blood specimen / Unknown 10/04/2024 10:00 AM EST 10/04/2024 10:00 AM EST Anna Marie Cameron ANP LAB BLOOD ORDERABLES Final Resul t Performing Organization Address [facility] Co de Phone Number [facility] [address] [place] [address] [phone] from Last 3 Months or Most Recently Relevant to Health Maintenance Insurance [facility] Care Teams Computer Programmer Chief Relationship Specialty Start Date End Date Anna Marie Cameron ANP [address] [place] [phone] PCP - General Family Medicine 05/01/20
--- OUTSIDE RECORDS SUMMARY | 2025-09-25 17:15 | XMS_ITS | Encounter Summary ---
Author Organization [employer] Address [address] [facility] 7 [place] [address] Care Team Providers Care Production Sorter Name Role Phone Anna Marie Cameron Primary Care Provider [phone] Reason for Visit * Reason Onset Date Comments Med Refill 09/19/2024 Encounter Details Date Type Department Care Team ([facility] st Contact Info) Description 09/19/2024 Telephone [facility] [address] [place] [address] Anna Marie Cameron ANP [address] [place] [address] Med Refill Social History Tobacco Use Types [...] immediate release tablet To be sent to: [facility]/pharmacy #[id number] [place] [address] - [address] [place] [address] documented in this encounter Plan of Treatment Upcoming Encounters Date Type Department Care Team (Late st Contact Info) Description 11/27/2025 3:00 PM EST Telemedicine [facility] [address] [place] [address] Jeniffer Busby RN [address] [place] [address] documented as of this encounter Visit Diagnoses Not on filedocumented in this encounter Additional Health Concerns Assessment Noted Time PHQ-9 Depression Total Score: 0 03/10/20 24 9:49 AM EDT documented as of this encounter Care Teams Production Sorter Relationship Specialty Start Date End Date Anna Marie Cameron ANP [address] [place] [phone] PCP - General Family Medicine 05/01/20 documented as of this encounter
--- OUTSIDE RECORDS SUMMARY | 2025-09-25 17:15 | XMS_ITS | Encounter Summary ---
Author Organization [employer] Address [address] [place] [address], [place] [address] Care Team Providers Care Hoist Cylinder Loader Name Role Phone Anna Marie Cameron Primary Care Provider [phone] Reason for Visit * Reason Onset Date Comments Med Refill 07/17/2023 Encounter Details Date Type Department Care Team ([facility] st Contact Info) Description 07/17/2023 Telephone [facility] MED[facility] [address] [place] [address] Anna Marie Cameron ANP [address] [place] [address] Med Refill Social History Tobacco Use Types [...] [facility]) Description 11/27/2025 3:00 PM EST Telemedicine [facility] [address] [place] [address] Jeniffer Busby, JORDAN [address] [place] [address] documented as of this encounter Visit Diagnoses Not on filedocumented in this encounter Care Teams Hoist Cylinder Loader Relationship Specialty Start Date End Date Anna Marie Cameron ANP [address] [place] [phone] PCP - General Family Medicine 05/01/20 documented as of this encounter
--- OUTSIDE RECORDS SUMMARY | 2025-09-25 17:15 | XMS_ITS | Encounter Summary ---
Author Organization [employer] Address 75 [facility] 7 [place] [address] Care Team Providers Care Truck Sales Manager Name Role Phone Anna Marie Cameron Primary Care Provider [phone] Reason for Visit * Reason Onset Date Comments Med Refill 08/22/2024 Encounter Details Date Type Department Care Team ([facility] st Contact Info) Description 08/22/2024 Telephone [facility] MED[facility]INE 230 [place] [address] Anna Marie Cameron ANP 230 [place] [address] Med Refill Social History Tobacco Use Types [...] be sent to: [facility]/pharmacy #[id number] [place], [place] - [address] [place] [address] documented in this encounter Plan of Treatment Upcoming Encounters Date Type Department Care Team (Late st Contact Info) Description 11/27/2025 3:00 PM EST Telemedicine [facility] PEDS 505 [place], [place] [phone] Jeniffer Busby RN 505 [place], [place] [phone] documented as of this encounter Visit Diagnoses Not on filedocumented in this encounter Additional Health Concerns Assessment Noted Time PHQ-9 Depression Total Score: 0 03/10/20 24 9:49 AM EDT documented as of this encounter Care Teams Truck Sales Manager Relationship Specialty Start Date End Date Anna Marie Cameron ANP [address] [place] [address] PCP - General Family Medicine 05/01/20 documented as of this encounter
--- OUTSIDE RECORDS SUMMARY | 2025-09-25 17:15 | XMS_ITS | Clinical Summary ---
Author Organization [address] [place] [address] Address [address] [place] [address] Phone Care Team Providers Care Personnel Placement Specialist Name Role Phone Anna Marie Cameron NP Primary Care Provider [phone] Social History Tobacco Use Types Packs/Day Years [...] Health Maintenance Due Date Last Done Comments Colorectal Cancer Screening: Colonoscopy 1977 Hepatitis B Vaccines (3 of 3 - 19+ 3-dose series) 04/10/2020 11/14/2019, 10/11/2019 Depression Screening 11/16/2024 Social Influencers of Health Screening 01/03/2025 Hypertension/CHF/CAD Annual BMP Blood Test 03/08/2025 07/17/2000 COVID-19 Vaccine ( season) 2025 09/15/2022, 10/22/2021, 03/25/2021, Additional history exists Influenza Vaccine (#1) 2025 , 11/11/2021, 10/11/2019, Additional history exists Cholesterol Screening (Lipid Panel) 10/04/2029 10/04/2024 DTaP,Tdap,and Td Vaccines (2 - Td or Tdap) 11/14/2029 11/14/2019 RSV Immunization Adult Patients (1 - 1-dose 75+ series) 02/25/2052 Pneumococcal [...] Procedure Name Priority Date/Time Associated Diagnosis Comments ANNUAL BMP BLOOD TEST Routine 07/17/2000 from Last 3 Months or Most Recently Relevant to Health Maintenance Results * Annual BMP Blood Test (07/17/2000) Annual BMP Blood Test Abstracted Historical Provider HEALTH MAINTENANCE Final Result from Last 3 Months or Most Recently Relevant to Health Maintenance Insurance , [address] [place] [address] PUBLIC PLANS Care Teams Personnel Placement Specialist Relationship Specialty Start Date End Date Anna Marie Cameron NP [address] [place], [place] [address] [address] PCP - General 01/03/25
--- OUTSIDE RECORDS SUMMARY | 2025-09-25 17:15 | XMS_ITS | Encounter Summary ---
Author Organization [employer] Address 75 [facility] 7 [place] [address] Care Team Providers Care Intramural Director Name Role Phone Anna Marie Camerno Primary Care Provider Reason for Visit * Reason Onset Date Comments Med Refill 05/17/2024 Encounter Details Date Type Department Care Team ([facility] st Contact Info) Description 05/17/2024 Telephone [facility] MEDICINE 230 [place] [address] Anna Marie [place] ANP 230 [place] [address] Med Refill Social History Tobacco Use Types [...] tablet To be sent to: [facility]/pharmacy #[id number] [place], [place] - [address] [place] [address] documented in this encounter Plan of Treatment Upcoming Encounters Date Type Department Care Team (Late st Contact Info) Description 11/27/2025 3:00 PM EST Telemedicine [facility] CH[facility] MED & PEDS 505 [place], [place] [phone] Jeniffer Busby RN 505 [place], [place] [phone] documented as of this encounter Visit Diagnoses Not on filedocumented in this encounter Additional Health Concerns Assessment Noted Time PHQ-9 Depression Total Score: 0 03/10/20 24 9:49 AM EDT documented as of this encounter Care Teams Intramural Director Relationship Specialty Start Date End Date Anna Marie Cameron ANP [address] [place] [address] PCP - General Family Medicine 05/01/20 documented as of this encounter
--- OUTSIDE RECORDS SUMMARY | 2025-09-25 17:15 | XMS_ITS | Encounter Summary ---
Author Organization [employer] Address 75 [facility] 7 [place] [address] Care Team Providers Care Power Electronics Research Engineer Name Role Phone Anna Marie Cameron Primary Care Provider [phone] Reason for Visit * Reason Onset Date Comments Med Refill 01/09/2025 Encounter Details Date Type Department Care Team ([facility] st Contact Info) Description 01/09/2025 Telephone [facility] MEDICINE 230 [place] [address] Anna Marie Cameron ANP 230 [place] [address] Med Refill Social History Tobacco Use Types [...] immediate release tablet To be sent to: [facility]/pharmacy #[id number] [place], [place] - [address] [place] [address] documented in this encounter Plan of Treatment Upcoming Encounters Date Type Department Care Team (Late st Contact Info) Description 11/27/2025 3:00 PM EST Telemedicine [facility] CH[facility] MED & PEDS 505 [place] [address] Jeniffer Busby RN 505 [place] [address] documented as of this encounter Visit Diagnoses Not on filedocumented in this encounter Additional Health Concerns Assessment Noted Time PHQ-9 Depression Total Score: 0 03/10/20 24 9:49 AM EDT documented as of this encounter Care Teams Power Electronics Research Engineer Relationship Specialty Start Date End Date Anna Marie Cameron ANP [address] [place] [address] PCP - General Family Medicine 05/01/20 documented as of this encounter
--- OUTSIDE RECORDS SUMMARY | 2025-09-25 17:15 | XMS_ITS | Encounter Summary ---
Author Organization [employer] Address 75 [facility] 7 [place] [address] Care Team Providers Care Scheduling Coordinator Name Role Phone Anna Marie Cameron Primary Care Provider [phone] Reason for Visit * Reason Onset Date Comments Med Refill 03/20/2025 Encounter Details Date Type Department Care Team ([facility] st Contact Info) Description 03/20/2025 Telephone [facility] MEDICINE 230 [place] [address] Anna Marie Cameron ANP 230 [place] [address] Med Refill Social History Tobacco Use Types [...] AM EDT documented as of this encounter Functional Status * Over the past 2 weeks, how often have you been bothered by any of the following problems? Question Answer Date of Assessment Author Patient Health Questionnaire-2 Score 0 06/2025 9:52 AM EDT Ariana Mcknight MA * Little interest or pleasure in doing things Answer Date of Assessment Author Not at all 03/23/2025 9:52 AM EDT Bob Mcknight MA * Feeling down, depressed, or hopeless Answer Date of Assessment Author Not at all 03/23/2025 9:52 AM EDT Bob Mcknight MA * Trouble falling or staying asleep, or sleeping too much Answer Date of Assessment Author Several days 03/23/2025 9:52 AM EDT Bob Mcknight MA * Feeling tired or having little energy Answer Date of Assessment Author Not at all 03/23/2025 9:52 AM EDT Bob Mcknight MA * Poor appetite or overeating Answer Date of Assessment Author Several days 03/23/2025 9:52 AM EDT Bob Mcknight MA * Feeling bad about yourself - or that you are a failure or have let yourself or your family down Answer Date of Assessment Author Not at all 03/23/2025 9:52 AM EDT Bob Mcknight MA * Trouble concentrating on things, such as reading the newspaper or watching television Answer Date of Assessment Author Not at all 03/23/2025 9:52 AM EDT Bob Mcknight MA * Moving or speaking so slowly that other people could have noticed? Or the opposite - being so fidgety or restless that you have been moving around a lot more than usual. Answer Date of Assessment Author Not at all 03/23/2025 9:52 AM EDT Bob Mcknight MA * Thoughts that you would be better off or hurting yourself in some way Answer Date of Assessment Author Not at all 03/23/2025 9:52 AM EDT Bob Mcknight MA * Patient Health Questionnaire-9 Score Answer Date of Assessment Author 2 03/23/2025 9:52 AM EDT Bob Mcknight MA * How difficult have these problems made it for you to do your work, take care of things at home, or get along with other people? Answer Date of Assessment Author Not difficult at all 03/23/2025 9:52 AM EDT Ariana Jain MA documented as of this encounter Miscellaneous Notes * Telephone Encounter - Becky Lerma - 03/20/2025 8:08 AM EDT TC from pt requesting medication refill. Medications needing refill : oxyCODONE (Roxicodone) 5 MG immediate release tablet To be sent to: [facility]/pharmacy #[id number] [facility] [address] documented in this encounter Plan of Treatment Upcoming Encounters Date Type Department Care Team (Late st Contact Info) Description 11/27/2025 3:00 PM EST Telemedicine [facility] MED & PEDS 505 [place] [address] Jeniffer Busby, JORDAN 505 [place] [address] documented as of this encounter Visit Diagnoses Not on filedocumented in this encounter Additional Health Concerns Assessment Noted Time PHQ-9 Depression Total Score: 0 03/10/20 24 9:49 AM EDT documented as of this encounter Care Teams Scheduling Coordinator Relationship Specialty Start Date End Date Anna Marie [place] ANP 230 [place] [address] PCP - General Family Medicine 05/01/20 documented as of this encounter
--- OUTSIDE RECORDS SUMMARY | 2025-09-25 17:15 | XMS_ITS | Encounter Summary ---
Author Organization [employer] Address 75 [facility] 7 [place] [address] Care Team Providers Care Landfill Gas Collection Operator Name Role Phone Anna Marie [place] Primary Care Provider [phone] Reason for Visit * Reason Onset Date Comments Med Refill 07/11/2024 Encounter Details Date Type Department Care Team ([facility] st Contact Info) Description 07/11/2024 Telephone [facility] MEDICINE 230 [place] [address] Anna Marie [place] ANP 230 [place] [address] Med Refill Social History Tobacco Use Types [...] immediate release tablet To be sent to: [facility]/pharmacy #[id number] [place], [place] - [address] [place] [address] documented in this encounter Plan of Treatment Upcoming Encounters Date Type Department Care Team (Late st Contact Info) Description 11/27/2025 3:00 PM EST Telemedicine [facility] CHC MED & PEDS 505 [place], [place] [phone] Jeniffer Busby RN 505 [place], [place] [phone] documented as of this encounter Visit Diagnoses Not on filedocumented in this encounter Additional Health Concerns Assessment Noted Time PHQ-9 Depression Total Score: 0 03/10/20 24 9:49 AM EDT documented as of this encounter Care Teams Landfill Gas Collection Operator Relationship Specialty Start Date End Date Anna Marie Cameron ANP [address] [place] [address] PCP - General Family Medicine 05/01/20 documented as of this encounter
--- OUTSIDE RECORDS SUMMARY | 2025-09-25 17:15 | XMS_ITS | Encounter Summary ---
Author Organization [employer] Address 75 [facility] 7t [place] [address] Care Team Providers Care Credit Charge Authorizer Name Role Phone Anna Marie Cameron Primary Care Provider [phone] Encounter Details Date Type Department Care Team (Latest Contact Info) Description 09/25/2025 Travel Social History Tobacco Use Types Packs/Day Years [...] Upcoming Encounters Date Type Department Care Team ([facility] st Contact Info) Description 11/27/2025 3:00 PM EST Telemedicine [facility] MED & PEDS 505 [place] [address] Jeniffer Busby, RN 505 [place] [address] documented as of this encounter Visit Diagnoses Not on filedocumented in this encounter Additional Health Concerns Assessment Noted Time PHQ-9 Depression Total Score: 2 03/23/20 25 9:52 AM EDT documented as of this encounter Care Teams Credit Charge Authorizer Relationship Specialty Start Date End Date Anna Marie Cameron ANP 230 [place] [address] PCP - General Family Medicine 05/01/20 documented as of this encounter
--- OUTSIDE RECORDS SUMMARY | 2025-09-25 17:15 | XMS_ITS | Encounter Summary ---
Author Organization [employer] Address [address] [place] [address], [place] [address] Care Team Providers Care Covering And Lining Supervisor Name Role Phone Anna Marie Cameron Primary Care Provider [phone] Reason for Visit * Reason Onset Date Comments Med Refill 10/02/2023 Encounter Details Date Type Department Care Team ([facility] st Contact Info) Description 10/02/2023 Telephone [facility] MEDICINE 230 [place] [address] Anna Marie Cameron ANP 230 [place] [address] Med Refill Social History Tobacco Use Types [...] immediate release tablet to be sent to [facility]/pharmacy #[id number] - [place] - [address] [facility] documented in this encounter Plan of Treatment Upcoming Encounters Date Type Department Care Team ([facility] st Contact Info) Description 11/27/2025 3:00 PM EST Telemedicine [facility] MED & PEDS 505 [place] [address] Jeniffer Busby, JORDAN 505 [place] [address] documented as of this encounter Visit Diagnoses Not on filedocumented in this encounter Care Teams Covering And Lining Supervisor Relationship Specialty Start Date End Date Anna Marie Cameron ANP [address] [place] [address] PCP - General Family Medicine 05/01/20 documented as of this encounter
--- OUTSIDE RECORDS SUMMARY | 2025-09-25 17:15 | XMS_ITS | Encounter Summary ---
Author Organization [employer] Address [address] [place] [address] 7[place], [place] [address] Care Team Providers Care Commercial Instructor Supervisor Name Role Phone Anna Marie Cameron Primary Care Provider [phone] Reason for Visit * Reason Onset Date Comments Med Refill 03/13/2023 Encounter Details Date Type Department Care Team (Late Contact Info) Description 03/13/[address] [facility] MEDICINE 230 [place] [address] Anna Marie Cameron ANP 230 [place] [address] Med Refill Social History Tobacco Use Types [...] Encounters Date Type Department Care Team (Late Contact Info) Description 11/27/2025 3:[address] [facility] CH[facility] MED & PEDS 505 [place] [address] Jeniffer Busby, JORDAN 505 [place] [address] documented as of this encounter Visit Diagnoses Not on filedocumented in this encounter Care Teams Commercial Instructor Supervisor Relationship Specialty Start Date End Date Anna Marie Cameron ANP [address] [place] [address] PCP - General Family Medicine 05/01/20 documented as of this encounter
--- OUTSIDE RECORDS SUMMARY | 2025-09-25 17:15 | XMS_ITS | Encounter Summary ---
Author Organization [employer] Address 75 [facility] 7 [place] [address] Care Team Providers Care Waitstaff Name Role Phone Anna Marie [place] Primary Care Provider [phone] Reason for Visit * Reason Onset Date Comments Med Refill 06/13/2024 Encounter Details Date Type Department Care Team ([facility] st Contact Info) Description 06/13/2024 Telephone [facility] MEDICINE 230 [place] [address] Anna Marie Cameron ANP 230 [place] [address] Med Refill Social History Tobacco Use Types [...] immediate release tablet To be sent to: [facility]/pharmacy #[id number] [place], [place] - [address] [place] [address] documented in this encounter Plan of Treatment Upcoming Encounters Date Type Department Care Team ([facility] st Contact Info) Description 11/27/2025 3:00 PM EST Telemedicine [facility] MED & PEDS 505 [place], [place] [phone] Jeniffer Busby RN 505 [place], [place] [phone] documented as of this encounter Visit Diagnoses Not on filedocumented in this encounter Additional Health Concerns Assessment Noted Time PHQ-9 Depression Total Score: 0 03/10/20 24 9:49 AM EDT documented as of this encounter Care Teams Waitstaff Relationship Specialty Start Date End Date Anna Marie Cameron ANP [address] [place] [address] PCP - General Family Medicine 05/01/20 documented as of this encounter
--- OUTSIDE RECORDS SUMMARY | 2025-09-25 17:15 | XMS_ITS | Encounter Summary ---
Author Organization [email or web address] Address 75 [facility] 7 [place] [address] Care Team Providers Care Needle Process Felt Goods Supervisor Name Role Phone Anna Marie Cameron Primary Care Provider [phone] Reason for Visit * Reason Onset Date Comments Med Refill 07/25/2024 Encounter Details Date Type Department Care Team ([facility] st Contact Info) Description 07/25/2024 Telephone [facility] MEDICINE 230 [place] [address] Anna Marie Cameron ANP 230 [place] [address] Med Refill Social History Tobacco Use Types [...] release tablet To be sent to: [facility]/pharmacy #[id number] [place] [address] - [address] [place] [address] documented in this encounter Plan of Treatment Upcoming Encounters Date Type Department Care Team (Late st Contact Info) Description 11/27/2025 3:00 PM EST Telemedicine [facility] CHC MED & PEDS 505 [place], [place] [phone] Jeniffer Busby RN 505 [place], [place] [phone] documented as of this encounter Visit Diagnoses Not on filedocumented in this encounter Additional Health Concerns Assessment Noted Time PHQ-9 Depression Total Score: 0 03/10/20 24 9:49 AM EDT documented as of this encounter Care Teams Needle Process Felt Goods Supervisor Relationship Specialty Start Date End Date Anna Marie Cameron ANP [address] [place] [address] PCP - General Family Medicine 05/01/20 documented as of this encounter
--- OUTSIDE RECORDS SUMMARY | 2025-09-25 17:15 | XMS_ITS | Encounter Summary ---
Author Organization [employer] Address 75 [facility] 7 [place] [address] Care Team Providers Care Picc Nurse Name Role Phone Anna Marie Cameron Primary Care Provider [phone] Encounter Details Date Type Department Care Team (Latest Contact Info) Description 09/25/2025 Results Follow-Up [facility] MEDICINE 230 [place] [address] Anna Marie Cameron ANP 230 [place] [address] CBC auto differential Social History Tobacco Use Types Packs/Day Years [...] Info) Description 11/27/2025 3:00 PM EST Telemedicine [facility] MED & PEDS 505 [place] [address] Jeniffer Busby, JORDAN 505 [place] [address] documented as of this encounter Visit Diagnoses Not on filedocumented in this encounter Additional Health Concerns Assessment Noted Time PHQ-9 Depression Total Score: 2 03/23/20 25 9:52 AM EDT documented as of this encounter Care Teams Picc Nurse Relationship Specialty Start Date End Date Anna Marie Cameron ANP 230 [place] [address] PCP - General Family Medicine 05/01/20 documented as of this encounter
--- OUTSIDE RECORDS SUMMARY | 2025-09-25 17:15 | XMS_ITS | Encounter Summary ---
Author Organization [employer] Address [address] [place] [address] [place], [place] [address] Care Team Providers Care Community Manager Name Role Phone Anna Marie Cameron Primary Care Provider [phone] Reason for Visit * Reason Onset Date Comments Med Refill 10/29/2023 Encounter Details Date Type Department Care Team ([facility] st Contact Info) Description 10/29/2023 Telephone [facility] MEDICINE 230 [place] [address] Anna Marie Cameron ANP 230 [place] [address] Med Refill Social History Tobacco Use Types [...] Upcoming Encounters Date Type Department Care Team ([facility] st Contact Info) Description 11/27/2025 3:00 PM EST Telemedicine [facility] CHC MED & PEDS 505 [place] [address] Jeniffer Busby, RN 505 [place] [address] documented as of this encounter Visit Diagnoses Not on filedocumented in this encounter Care Teams Community Manager Relationship Specialty Start Date End Date Anna Marie Cameron ANP [address] [place] [address] PCP - General Family Medicine 05/01/20 documented as of this encounter
[2025-09-25 17:37] LABS: Microalbum/Creatinine Ratio Ur 9.5 ug/mg cr (<30)
[2025-09-26 06:52] LABS: HBS Num1 2.53 mIU/mL (0-7.99); HBc Num1 0.08 S/CO (0.00-0.79); HBsAGNum1 0.65 S/CO (0.00-0.99); Hepatitis B Surface Antigen Negative (Negative); ~Hepatitis B Surface Antibody NONREACTIVE (Nonreactive)
== END 2025-09-25 15:03 | disposition home or self-care (01) ==
LOC: HO.HHCL 15:02
PROVIDERS: PCP Nurse Practitioner Primary Care; Visit Provider Nurse Practitioner Primary Care
DX: Z11.59 Encounter for screening for other viral diseases (principal); I10 Essential (primary) hypertension; G47.62 Sleep related leg cramps
CPT/HCPCS: 36415; 80048; 82043; 82570; 83540; 85025; 86704; 86706; 87340